=== PATIENT | female | born 1980 ===

== ENCOUNTER 2021-07-28 06:48 | Emergency (ER) | payer MEDICARE, MEDICAID, SELFPAY ==
--- NOTE | ~2021-07-28 | US_ITS ---
EXAMINATION: US PELVIS CLINICAL INFORMATION: Lower abdominal pain. Evaluate for ovarian cyst or tubo-ovarian abscess COMPARISON: Previous CT of the abdomen and pelvis July 2017 TECHNIQUE: Ultrasound of the pelvis is performed using both transabdominal and transvaginal transducers along with Doppler. Transvaginal imaging is performed due to inadequate visualization transabdominally. FINDINGS: The uterus is anteverted and measures 8.7 x 5.2 x 5.5 cm in dimension. There is a 2.2 x 2 x 3.6 cm hypoechoic lesion in the posterior uterine body suggestive of a fibroid. No other focal uterine lesion is seen. Endometrial thickness is normal measuring 1.1 cm. The right ovary is enlarged and measures 5 x 2.7 x 2.7 cm in dimension. There is a 1.2 x 2.1 x 1.7 cm complex right ovarian cyst with slightly thickened wall and internal echoes. The left ovary is seen transabdominally and is normal-appearing and measures 2.8 x 1.7 x 1.9 cm. Doppler and flow is documented to the right ovary. There is no evidence of right ovarian torsion. There is no fluid in the pelvis. US/US pelvic and transvaginal IMPRESSION: Small uterine fibroid. Slightly enlarged right ovary and 1.9 x 2.1 x 1.7 cm complex right ovarian cyst. Differential would include a resolving physiologic or hemorrhagic cyst and small tubo-ovarian abscess. No evidence of right ovarian torsion. No free fluid in the pelvis. Left ovary is seen transabdominally only but is normal-appearing.
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
[2021-07-28 07:23] VITALS: BP 177/106; PULSE 72; RESP 16; TEMP 36.9; O2SAT 98; BMI 30.1
[2021-07-28 08:01] LABS: Appearance Urine HAZY; Color Urine YELLOW; Glucose Urine UA NEG (NEG); Leukocyte Esterase Urine 2+ (NEG); Nitrite Urine NEG (NEG); Specific Gravity - Urine >= 1.030 (1.005-1.025); UACC Culture Trigger YES; Urine Blood 3+ (NEG); Urine Ketones NEG (NEG); Urine Protein TRACE MG/DL (NEG-TRACE)
[2021-07-28 08:04] LABS: UPreg QC Valid YES; Urine Pregnancy NEGATIVE (NEGATIVE)
[2021-07-28] MEDS: metroNIDAZOLE 500 MG TABLET 2000 MG PO (08:10)
[2021-07-28] MEDS: Azithromycin 500 MG TABLET 1000 MG PO (08:11)
[2021-07-28] MEDS: cefTRIAXone sodium 500 MG, Lidocaine HCl 1 % MPF 1 ML IM (08:11)
[2021-07-28 08:14] LABS: Bacteria Urine TRACE /LPF; Mucus Urine TRACE /LPF; Squamous Epithelial Cell Urine 1+ /LPF
[2021-07-28] MEDS: Ondansetron ODT 4 MG TAB.RAPDIS TRANSLINGU (09:21)
[2021-07-28 13:07] LABS: CT PCR NOT DETECTED (Not Detect.); NG PCR NOT DETECTED (Not Detect.)
== END 2021-07-28 10:12 | disposition home or self-care (01) ==
PROVIDERS: Emergency Provider Emergency Medicine; PCP Internal Medicine
DX: N76.0 Acute vaginitis (principal); N83.201 Unspecified ovarian cyst, right side; Z87.891 Personal history of nicotine dependence; Z79.899 Other long term (current) drug therapy; R79.89 Other specified abnormal findings of blood chemistry
CPT/HCPCS: 76830; 76856; 81001; 81003; 81025; 87086; 87480; 87491; 87510; 87591; 87660; 96372; 99283; 99284; J0696

== ENCOUNTER 2021-09-20 17:10 | Emergency (ER) | payer MEDICARE, MEDICAID, SELFPAY ==
--- NOTE | ~2021-09-20 | XR_ITS ---
EXAMINATION: XR KNEE, RIGHT CLINICAL INFORMATION: Pain COMPARISON: None TECHNIQUE: AP and crosstable lateral views of the right knee are obtained portably. FINDINGS: There is a moderate to large suprapatellar effusion. No fat fluid level. There is no visible fracture or dislocation or destructive process. Tricompartment osteoarthritis is present with associated marginal osteophytes from the femoral condyles and tibial plateau and patella. There are no erosive changes or visible chondrocalcinosis. XR/XR knee RT 2V IMPRESSION: 1. Moderate to large suprapatellar effusion. 2. Tricompartment osteoarthritis. No erosive change. 3. No fracture or dislocation.
[2021-09-20 17:37] VITALS: RESP 18; BMI 34.8
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
[2021-09-20] MEDS: Haloperidol Lactate 5 MG/ML VIAL 10 MG IM (17:50)
[2021-09-20] MEDS: LORazepam 2 MG/ML VIAL IM (17:50)
[2021-09-20 19:53] LABS: COVID-19 Test Negative (Negative)
[2021-09-21 05:18] VITALS: RESP 16
--- NOTE | 2021-09-21 06:24 | PC.NURSE ---
Patient slept whole evening and night, patient s/p medication restraint receive Haldol 10 mg IM and Ativan 2 mg IM with + effect was restarint immediately after arrival in the POD, briefly up tearful and argumentative, tangential, agreed reluctantly for covid swab, refused to do price changer and fell sleep, N referral completed and confirmed patient will be evaluated in the morning, except for covid all labs are pending, will continue to monitor.
[2021-09-21 07:13] VITALS: BP 142/86; PULSE 58; RESP 16; O2SAT 99
[2021-09-21 11:06] LABS: Alanine Aminotransferase 20 U/L (0-31); Albumin Level 3.9 g/dL (3.5-5.0); Alkaline Phosphatase 49 U/L (39-117); Anion Gap 15 (12-20); Aspartate Amino Transferase 27 U/L (5-31); Bilirubin Total 0.9 mg/dL (0.0-1.0); Blood Urea Nitrogen 8 mg/dL (9-16); Calcium 8.7 mg/dL (8.4-10.2); Carbon Dioxide 20 mmol/L (22-29); Chloride 107 mmol/L (96-108); Creatinine Clr Calc Pharmacy 109.6; Estimated Glomerular Filt Rate > 60; Glucose Random 92 mg/dL (60-115); Lipase 10 U/L (8-78); Potassium 3.9 mmol/L (3.3-5.1); Salicylate < 5.0 mg/dL (15-30); Sodium 138 mmol/L (135-145); Total Protein 6.7 g/dL (6.5-8.0)
[2021-09-21 11:11] LABS: HCG Quantitative < 2 mIU/mL
[2021-09-21 11:17] LABS: Acetaminophen LAB < 1 mcg/mL (<30)
[2021-09-21 11:54] LABS: Basophils Absolute Auto 0.1 X10*3/uL (0.0-0.2); Eosinophils Absolute Auto 0.2 X10*3/uL (0.0-0.4); Eosinophils Percent Auto 2.1 % (0-4); Hematocrit 36.8 % (37.0-47.0); Hemoglobin 12.6 g/dl (12.0-16.0); Imm Gran Abs Auto 0.02 X10*3/uL (0.00-0.03); Imm Gran Pct Auto 0.3 % (0.0-0.4); Lymphocytes Absolute Auto 1.5 X10*3/uL (1.2-4.9); Lymphocytes Percent Auto 20.7 % (20-40); MANUAL DIFF FLAG NO; Mean Corpuscular HGB Conc 34.2 g/dl (31.0-35.0); Mean Corpuscular Hemoglobin 31.4 pg (27.0-33.0); Mean Corpuscular Volume 91.8 fL (80.0-98.0); Mean Platelet Volume 10.9 fL (9.4-12.3); Monocytes Absolute Auto 0.5 X10*3/uL (0.1-1.2); Monocytes Percent Auto 6.4 % (2-11); Neutrophils Percent Auto 69.5 % (45-73); Platelet Count 260 X10*3/uL (160-400); Red Blood Count 4.01 X10*6/uL (4.20-5.50); Red Cell Distribution Width 13.1 % (11.0-16.0); White Blood Count 7.1 X10*3/uL (4.8-10.8)
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
[2021-09-21 12:05] LABS: Lactic Acid 0.8 mmol/L (0.5-2.0)
[2021-09-21 12:07] LABS: Ethanol < 10 mg/dL
--- NOTE | 2021-09-21 13:36 | PC.NURSE ---
Nicolasa's Mom came to bedside to briefly visit patient. procedure writer (Kim) alerted this RN that Nicolasa's daughter is currently getting an ultrasound and wanted to see Nicolasa. Nicolasa okay with this, as long as there is 1 visitor at a time. Nicolasa's Mom (Arik Schultz) took Nicolasa's car keys and house keys with her. Updated/signed patient belongings checklist form.
--- NOTE | 2021-09-21 18:06 | PC.NURSE ---
Pt seen by care team who feels that she is ready to be discharged. MD aware and discharge order has been placed.
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
== END 2021-09-21 18:23 | disposition home or self-care (01) ==
PROVIDERS: Emergency Medicine; Emergency Provider Emergency Medicine Emergency Medical Services
DX: F23 Brief psychotic disorder (principal); F22 Delusional disorders; F91.1 Conduct disorder, childhood-onset type; F31.9 Bipolar disorder, unspecified; Z20.822 Contact with and (suspected) exposure to COVID-19
CPT/HCPCS: 36415; 73560; 80053; 80143; 80179; 82077; 82550; 83605; 83690; 84702; 85025; 87635; 96372; 99284; 99285; J2060

== ENCOUNTER 2022-02-17 01:02 | Emergency (ER) | payer MEDICARE, MEDICAID, SELFPAY ==
[2022-02-17 01:05] VITALS: BP 168/98; PULSE 83; RESP 18; TEMP 36.9; O2SAT 99; BMI 24.7
[2022-02-17 01:11] VITALS: BP 168/98; PULSE 88; O2SAT 98
== END 2022-02-17 02:14 | disposition left against medical advice (07) ==
PROVIDERS: Emergency Provider Emergency Medicine; PCP Internal Medicine
DX: R25.2 Cramp and spasm (principal)
CPT/HCPCS: 99282

== ENCOUNTER 2022-03-15 03:53 | Emergency (ER) | payer MEDICARE, MEDICAID, SELFPAY ==
[2022-03-15 04:15] VITALS: BP 150/85; PULSE 94; PULSE 98; RESP 15; TEMP 36.7; O2SAT 99; BMI 24.1
--- NOTE | 2022-03-15 04:20 | PC.NURSE ---
Patient came running out of Room 7 and stated that she was leaving because she couldn't stay here because her dog was going to get hurt. Patient refused to stay despite staff attempting to get her not to leave. Patient is not in crisis, no SI/OK, and wanted to leave. MD aware that patient eloped.
== END 2022-03-15 04:38 | disposition left against medical advice (07) ==
PROVIDERS: Emergency Provider Emergency Medicine
DX: Z04.89 Encounter for examination and observation for other specified reasons (principal)
CPT/HCPCS: 99281; 99284

== ENCOUNTER 2022-04-30 00:12 | Emergency (ER) | payer MEDICARE, MEDICAID, SELFPAY ==
--- NOTE | ~2022-04-30 | US_ITS ---
EXAMINATION: US VENOUS ULTRASOUND WITH DOPPLER LOWER EXTREMITY, BILATERAL CLINICAL INFORMATION: Lower extremity swelling. COMPARISON: None TECHNIQUE: Ultrasound of the deep veins is performed from the hip to the calf with compression sonography and color and pulse Doppler assessment. Spectral analysis with color-flow imaging is performed. FINDINGS: RIGHT: There is normal venous compression and respiratory variation and augmented flow. The visualized common femoral vein, superficial femoral vein, profunda femoral vein, popliteal vein, and the trifurcation region shows no evidence of deep venous thrombosis. The popliteal fossa fluid collection with mild heterogeneity and predominantly anechoic components measures 3.5 cm x 0.7 cm x 1.6 cm. LEFT: There is normal venous compression and respiratory variation and augmented flow. The visualized common femoral vein, superficial femoral vein, profunda femoral vein, popliteal vein, and the trifurcation region shows no evidence of deep venous thrombosis. A left popliteal fossa prominently anechoic fluid collection measuring 2.9 cm x 1.0 cm x 2.7 cm is present. Incidental note is made of scattered benign-appearing inguinal lymph nodes bilaterally. If the patient's symptoms persist, followup ultrasound in 5 days 7 days might be of value to exclude proximal propagation from a non-visualized calf vein. US/US venous duplex LE BI IMPRESSION: *No deep venous thromboses demonstrated in the left and right lower extremities. *Bilateral popliteal fossa Reece's cyst. The right popliteal fossa Reece's cyst demonstrates mildly complex fluid which may represent a component of debris and/or blood products.
[2022-04-30 00:21] VITALS: PULSE 73; RESP 18; TEMP 36.8; O2SAT 99; BMI 25.0
--- NOTE | 2022-04-30 00:27 | PC.NURSE ---
Pt was moving arm too much in triage, could not obtain BP.
--- NOTE | 2022-04-30 00:29 | ED.GENADULT ---
HPI - General Adult General Chief complaint: General Medical <DUSTIN Baker Last Filed: 04/30/22 01:47> Stated complaint: Bilateral leg pain <DUSTIN Baker Last Filed: 04/30/22 01:47> Time Seen by Provider: 04/30/22 00:28 <DUSTIN Baker Last Filed: 04/30/22 01:47> Source: patient <DUSTIN Baker Last Filed: 04/30/22 01:47> Mode of arrival: ambulatory <DUSTIN Baker Last Filed: 04/30/22 01:47> Limitations: no limitations <DUSTIN Baker Last Filed: 04/30/22 01:47> History of Present Illness HPI narrative: 41-year-old female history of bipolar 1, anxiety, lupus, fibromyalgia, migraines and frequent UTIs presents to the emergency department with complaints of bilateral lower extremity edema, pain and inability to bear weight on bilateral lower extremities. Patient tells me that she usually gets fluid drained from bilateral knees by her lead pressman, last time she got a drain was about 2 months ago. She tells me that she also notices that her lower right leg is more swollen than her left. This has been going on for about 5 days, she tells me she came in today because the pain was intolerable. Denies shortness of breath, fevers, chills, nausea, vomiting, abdominal pain <DUSTIN Baker Last Filed: 04/30/22 01:47> Onset (ago): day(s) (5) <DUSTIN Baker Last Filed: 04/30/22 01:47> Location: left, right and lower extremity <DUSTIN Baker Last Filed: 04/30/22 01:47> Radiation: non-radiation <DUSTIN Baker Last Filed: 04/30/22 01:47> Severity: severe <DUSTIN Baker Last Filed: 04/30/22 01:47> Severity scale (1-10): >10 <DUSTIN Baker Last Filed: 04/30/22 01:47> Quality: constant <DUSTIN Baker Last Filed: 04/30/22 01:47> Pain Consistency: constant <DUSTIN Baker Last Filed: 04/30/22 01:47> Relieving factors: none <DUSTIN Baker Last Filed: 04/30/22 01:47> Exacerbating factors: none <DUSTIN Baker Last Filed: 04/30/22 01:47> Associated symptoms: denies other symptoms <DUSTIN Baker Last Filed: 04/30/22 01:47> Treatments prior to arrival: none <DUSTIN Baker Last Filed: 04/30/22 01:47> Related Data Home medications: Home Medications Medication Instructions Recorded Confirmed cholecalciferol (vitamin D3) 50 1 cap PO DAILY 09/21/21 09/21/21 mcg (2,000 unit) capsule clonazepam 2 mg tablet 1 tab PO TID PRN Agitation 09/21/21 09/21/21 fluoxetine 20 mg capsule 1 cap PO DAILY 09/21/21 09/21/21 Previous Rx's Medication Instructions Recorded cephalexin 500 mg tablet 500 mg PO Q6H 10 days #40 tabs 04/30/22 doxycycline hyclate 100 mg capsule 100 mg PO BID 10 days #20 caps 04/30/22 <DUSTIN Baker Last Filed: 04/30/22 01:47> Allergies/adverse reactions: Allergies Allergy/AdvReac Type Severity Reaction Status Date / Time acetaminophen [From VICODIN] Allergy Unknown HIVES Verified 03/15/22 03:58 hydrocodone [From VICODIN] Allergy Unknown HIVES Verified 03/15/22 03:58 midazolam [From VERSED] Allergy Unknown AGGRESSION Verified 03/15/22 03:58 rofecoxib [From VIOXX] Allergy Unknown HIVES Verified 03/15/22 03:58 sulfamethoxazole Allergy Unknown UNKNOWN Verified 03/15/22 03:58 [From BACTRIM] trimethoprim [From BACTRIM] Allergy Unknown UNKNOWN Verified 03/15/22 03:58 ibuprofen Allergy Vomiting Verified 04/30/22 00:20 bactrim Allergy Unknown Rash Uncoded 09/21/21 00:25 doxycycline Allergy Unknown Rash Uncoded 09/21/21 00:25 vicodin Allergy Unknown Anxiety Uncoded 09/21/21 00:25 viox Allergy Unknown Rash Uncoded 09/21/21 00:25 <DUSTIN Baker - Last Filed: 04/30/22 01:47> Review of Systems Review of Systems: Constitutional : No Weight loss, No Fever, No Chills, No Fatigue, No Malaise ENT/Mouth : No sore throat, No Rhinorrhea Eyes: No Eye Pain, No Swelling, No Redness Cardiovascular : No Chest Pain, No SOB, No Dyspnea on Exertion, No Orthopnea, No Edema, No Palpitations Respiratory : No Cough, No Sputum, No Wheezing Gastrointestinal : No Nausea, No Vomiting, No Diarrhea, No Constipation, No abdominal Pain, No Hematochezia, No Melena Genitourinary : No Dysuria, No Urinary Frequency, No Hematuria, Musculoskeletal : + joint pain, No Myalgias, + Joint Swelling Skin : No Skin Lesions, No rash Neuro : No Weakness, No Numbness, No Dizziness, No Headache All other systems reviewed and are negative <DUSTIN Baker - Last Filed: 04/30/22 01:47> Yes all other systems are reviewed and are negative <DUSTIN Baker Last Filed: 04/30/22 01:47> [facility] Past Medical History Attestation statement: The following information was validated with the patient. <DUSTIN Baker Last Filed: 04/30/22 01:47> Source: old records reviewed and nursing notes reviewed <DUSTIN Baker - Last Filed: 04/30/22 01:47> Medical History: Medical History Anxiety Bipolar 1 disorder Lupus Migraines UTI (urinary tract infection) <DUSTIN Baker Last Filed: 04/30/22 01:47> Surgical History: Surgical History History of pubovaginal sling <DUSTIN Baker Last Filed: 04/30/22 01:47> Social History Social History: Social History Alcohol intake: unknown Patient Tobacco Use Status: Former Tobacco user Advance Directives: No <DUSTIN Baker - Last Filed: 04/30/22 01:47> Physical Exam ED Vital Signs: Vital Signs - 24 hr 04/30/22 00:21 04/30/22 02:51 Temperature 98.3 F Pulse Rate 73 71 Respiratory Rate 18 Blood Pressure 117/57 L Pulse Oximetry 99 95 Oxygen Delivery Method Room Air Room Air BMI result Body Mass Index 25.0 Vital signs stable <DUSTIN Baker - Last Filed: 04/30/22 01:47> Vital Signs - 24 hr 04/30/22 00:21 04/30/22 02:51 Temperature 98.3 F Pulse Rate 73 71 Respiratory Rate 18 Blood Pressure 117/57 L Pulse Oximetry 99 95 Oxygen Delivery Method Room Air Room Air BMI result Body Mass Index 25.0 <Abby Payan MD - Last Filed: 04/30/22 03:27> Appearance: Alert.? Oriented X3.? No acute distress.? Head: Normocephalic, atraumatic, no step-offs or deformities Eyes: Pupils equal, round and reactive to light.? ENT: Pharynx normal.? Neck: Normal inspection.? Neck supple.? CVS: Normal heart rate and rhythm.? Pulses normal.? Respiratory: No respiratory distress.? Breath sounds normal.? Abdomen: Soft and nontender.? Skin: Skin warm and dry.? Normal skin color.? Normal skin turgor.? Extremities: No lower extremity edema.? No calf ttp. 5/5 strength to bilateral upper and lower extremities. swelling to b/l knees and RLE swelling and cellulitis. RLE warm and edematous. LLE with a swollen left knee. RRR. Lungs clear. Abdomen soft nontender nondistended. Neuro exam nonfocal. Back: No midline tenderness, no C-spine tenderness, full range of motion, no CVA tenderness bilaterally Neuro: Oriented X 3.? No motor deficit.? No sensory deficit. CN 2-12 intact <DUSTIN Baker - Last Filed: 04/30/22 01:47> Course Reevaluation(s) Reevaluation #1: CBC appears to be around patient's baseline, chemistry with no acute electrolyte abnormalities requiring intervention. Trop pending EKG pending. An arthrocentesis was done at the bedside with , 35 cc were drained from the left knee joint yellow, normal parents, the right knee joint we drained about 15 cc. This was done in a sterile fashion. 80 mg of DEPO-Medrol were placed to each knee. Patient tolerated procedure well. Abel wrap applied to b/l knees. Pending trop, ekg, venous duplex. <DUSTIN Baker - Last Filed: 04/30/22 01:47> Time: 01:37 <DUSTIN Baker - Last Filed: 04/30/22 01:47> Reevaluation #2: Sign out given to . <DUSTIN Baker - Last Filed: 04/30/22 01:47> Time: 01:45 <DUSTIN Baker - Last Filed: 04/30/22 01:47> Reevaluation #3: Patient has bilateral Reece cysts. <Abby Payan MD - Last Filed: 04/30/22 03:27> Medical Decision Making MDM Narrative Medical decision making narrative: 0031 41 yo f presents w/ b/l lower extremity pain and swelling X 5day . Vague complaints of chest discomfort PE- w/ significant swelling to b/l knees and RLE swelling and cellulitis. RLE warm and edematous. LLE with a swollen left knee. RRR. Lungs clear. Abdomen soft nontender nondistended. Neuro exam nonfocal. History and physical examination concerning for right lower extremity cellulitis, rule will rule out DVT. Plan-labs, urine, bnp , troponin, EKG. Discuss this case with my attending , arthrocentesis <DUSTIN Baker - Last Filed: 04/30/22 01:47> Medical Records Medical records reviewed: Yes I reviewed the patient's medical records. <DUSTIN Baker - Last Filed: 04/30/22 01:47> Lab Data Lab results reviewed: Yes I reviewed the patient's lab results. <DUSTIN Baker - Last Filed: 04/30/22 01:47> Result diagrams: : 04/30/22 01:02 04/30/22 01:02 <DUSTIN Baker - Last Filed: 04/30/22 01:47> Labs: Lab Results 04/30/22 04/30/22 04/30/22 Range/Units 01:02 01:02 01:02 WBC 8.6 (4.8-10.8) X10*3/uL RBC 3.46 L (4.20-5.50) X10*6/uL Hgb 10.4 L (12.0-16.0) g/dl Hct 31.6 L (37.0-47.0) % MCV 91.3 (80.0-98.0) fL MCH 30.1 (27.0-33.0) pg MCHC 32.9 (31.0-35.0) g/dl RDW 13.5 (11.0-16.0) % Plt Count 325 (160-400) X10*3/uL MPV 10.3 (9.4-12.3) fL Immature Gran % (Auto) 0.1 (0.0-0.4) % Neut % (Auto) 66.6 (45-73) % Lymph % (Auto) 24.7 (20-40) % [place] % (Auto) 7.1 (2-11) % Eos % (Auto) 1.0 (0-4) % Baso % (Auto) 0.5 (0-2) % Lymph # (Auto) 2.1 (1.2-4.9) X10*3/uL [place] # (Auto) 0.6 (0.1-1.2) X10*3/uL Eos # (Auto) 0.1 (0.0-0.4) X10*3/uL Baso # (Auto) 0.0 (0.0-0.2) X10*3/uL Abs Immat Gran (auto) 0.01 (0.00-0.03) X10*3/uL Absolute Neuts (auto) 5.7 (2.0-8.3) x10*3/uL Absolute Nucleated RBC 0.000 (0.0-0.012) X10*3/uL Nucleated RBC % (auto) 0.0 (0.0-0.2) /100WBC D-Dimer High Sensitivty Sodium 142 (135-145) mmol/L Potassium 3.5 (3.3-5.1) mmol/L Chloride 105 (96-108) mmol/L Carbon Dioxide 31 H (22-29) mmol/L Anion Gap 10 L (12-20) BUN 13 (9-16) mg/dL Creatinine 0.83 (0.5-1.4) mg/dL Estim Creat Clear Calc 83.4 Estimated GFR > 60 Random Glucose 93 (60-115) mg/dL Lactic Acid (0.5-2.0) mmol/L Calcium 8.5 (8.4-10.2) mg/dL Magnesium 2.2 (1.6-2.6) mg/dL Total Bilirubin 0.3 (0.0-1.0) mg/dL AST 17 (5-31) U/L ALT 8 (0-31) U/L Alkaline Phosphatase 65 D (39-117) U/L Troponin I High Sens (<3.5-17.0) ng/L B-Natriuretic Peptide 12 (<100) pg/mL Total Protein 6.2 L (6.5-8.0) g/dL Albumin 3.7 (3.5-5.0) g/dL COVID-19 (BRAD) (Negative) COVID-19 Clin Com 04/30/22 04/30/22 04/30/22 Range/Units 01:02 01:02 01:32 WBC (4.8-10.8) X10*3/uL RBC (4.20-5.50) X10*6/uL Hgb (12.0-16.0) g/dl Hct (37.0-47.0) % MCV (80.0-98.0) fL MCH (27.0-33.0) pg MCHC (31.0-35.0) g/dl RDW (11.0-16.0) % Plt Count (160-400) X10*3/uL MPV (9.4-12.3) fL Immature Gran % (Auto) (0.0-0.4) % Neut % (Auto) (45-73) % Lymph % (Auto) (20-40) % [place] % (Auto) (2-11) % Eos % (Auto) (0-4) % Baso % (Auto) (0-2) % Lymph # (Auto) (1.2-4.9) X10*3/uL [place] # (Auto) (0.1-1.2) X10*3/uL Eos # (Auto) (0.0-0.4) X10*3/uL Baso # (Auto) (0.0-0.2) X10*3/uL Abs Immat Gran (auto) (0.00-0.03) X10*3/uL Absolute Neuts (auto) (2.0-8.3) x10*3/uL Absolute Nucleated RBC (0.0-0.012) X10*3/uL Nucleated RBC % (auto) (0.0-0.2) /100WBC D-Dimer High Sensitivty Cancelled Sodium (135-145) mmol/L Potassium (3.3-5.1) mmol/L Chloride (96-108) mmol/L Carbon Dioxide (22-29) mmol/L Anion Gap (12-20) BUN (9-16) mg/dL Creatinine (0.5-1.4) mg/dL Estim Creat Clear Calc Estimated GFR Random Glucose (60-115) mg/dL Lactic Acid (0.5-2.0) mmol/L Calcium (8.4-10.2) mg/dL Magnesium (1.6-2.6) mg/dL Total Bilirubin (0.0-1.0) mg/dL AST (5-31) U/L ALT (0-31) U/L Alkaline Phosphatase (39-117) U/L Troponin I High Sens < 3.5 (<3.5-17.0) ng/L B-Natriuretic Peptide (<100) pg/mL Total Protein (6.5-8.0) g/dL Albumin (3.5-5.0) g/dL COVID-19 (BRAD) Negative (Negative) COVID-19 Clin Com See Note 04/30/22 Range/Units 01:32 WBC (4.8-10.8) X10*3/uL RBC (4.20-5.50) X10*6/uL Hgb (12.0-16.0) g/dl Hct (37.0-47.0) % MCV (80.0-98.0) fL MCH (27.0-33.0) pg MCHC (31.0-35.0) g/dl RDW (11.0-16.0) % Plt Count (160-400) X10*3/uL MPV (9.4-12.3) fL Immature Gran % (Auto) (0.0-0.4) % Neut % (Auto) (45-73) % Lymph % (Auto) (20-40) % [place] % (Auto) (2-11) % Eos % (Auto) (0-4) % Baso % (Auto) (0-2) % Lymph # (Auto) (1.2-4.9) X10*3/uL [place] # (Auto) (0.1-1.2) X10*3/uL Eos # (Auto) (0.0-0.4) X10*3/uL Baso # (Auto) (0.0-0.2) X10*3/uL Abs Immat Gran (auto) (0.00-0.03) X10*3/uL Absolute Neuts (auto) (2.0-8.3) x10*3/uL Absolute Nucleated RBC (0.0-0.012) X10*3/uL Nucleated RBC % (auto) (0.0-0.2) /100WBC D-Dimer High Sensitivty Sodium (135-145) mmol/L Potassium (3.3-5.1) mmol/L Chloride (96-108) mmol/L Carbon Dioxide (22-29) mmol/L Anion Gap (12-20) BUN (9-16) mg/dL Creatinine (0.5-1.4) mg/dL Estim Creat Clear Calc Estimated GFR Random Glucose (60-115) mg/dL Lactic Acid 0.9 (0.5-2.0) mmol/L Calcium (8.4-10.2) mg/dL Magnesium (1.6-2.6) mg/dL Total Bilirubin (0.0-1.0) mg/dL AST (5-31) U/L ALT (0-31) U/L Alkaline Phosphatase (39-117) U/L Troponin I High Sens (<3.5-17.0) ng/L B-Natriuretic Peptide (<100) pg/mL Total Protein (6.5-8.0) g/dL Albumin (3.5-5.0) g/dL COVID-19 (BRAD) (Negative) COVID-19 Clin Com <DUSTIN Baker - Last Filed: 04/30/22 01:47> Lab Results 04/30/22 04/30/22 04/30/22 Range/Units 01:02 01:02 01:02 WBC 8.6 (4.8-10.8) X10*3/uL RBC 3.46 L (4.20-5.50) X10*6/uL Hgb 10.4 L (12.0-16.0) g/dl Hct 31.6 L (37.0-47.0) % MCV 91.3 (80.0-98.0) fL MCH 30.1 (27.0-33.0) pg MCHC 32.9 (31.0-35.0) g/dl RDW 13.5 (11.0-16.0) % Plt Count 325 (160-400) X10*3/uL MPV 10.3 (9.4-12.3) fL Immature Gran % (Auto) 0.1 (0.0-0.4) % Neut % (Auto) 66.6 (45-73) % Lymph % (Auto) 24.7 (20-40) % [place] % (Auto) 7.1 (2-11) % Eos % (Auto) 1.0 (0-4) % Baso % (Auto) 0.5 (0-2) % Lymph # (Auto) 2.1 (1.2-4.9) X10*3/uL [place] # (Auto) 0.6 (0.1-1.2) X10*3/uL Eos # (Auto) 0.1 (0.0-0.4) X10*3/uL Baso # (Auto) 0.0 (0.0-0.2) X10*3/uL Abs Immat Gran (auto) 0.01 (0.00-0.03) X10*3/uL Absolute Neuts (auto) 5.7 (2.0-8.3) x10*3/uL Absolute Nucleated RBC 0.000 (0.0-0.012) X10*3/uL Nucleated RBC % (auto) 0.0 (0.0-0.2) /100WBC D-Dimer High Sensitivty Sodium 142 (135-145) mmol/L Potassium 3.5 (3.3-5.1) mmol/L Chloride 105 (96-108) mmol/L Carbon Dioxide 31 H (22-29) mmol/L Anion Gap 10 L (12-20) BUN 13 (9-16) mg/dL Creatinine 0.83 (0.5-1.4) mg/dL Estim Creat Clear Calc 83.4 Estimated GFR > 60 Random Glucose 93 (60-115) mg/dL Lactic Acid (0.5-2.0) mmol/L Calcium 8.5 (8.4-10.2) mg/dL Magnesium 2.2 (1.6-2.6) mg/dL Total Bilirubin 0.3 (0.0-1.0) mg/dL AST 17 (5-31) U/L ALT 8 (0-31) U/L Alkaline Phosphatase 65 D (39-117) U/L Troponin I High Sens (<3.5-17.0) ng/L B-Natriuretic Peptide 12 (<100) pg/mL Total Protein 6.2 L (6.5-8.0) g/dL Albumin 3.7 (3.5-5.0) g/dL COVID-19 (BRAD) (Negative) COVID-19 Clin Com 04/30/22 04/30/22 04/30/22 Range/Units 01:02 01:02 01:32 WBC (4.8-10.8) X10*3/uL RBC (4.20-5.50) X10*6/uL Hgb (12.0-16.0) g/dl Hct (37.0-47.0) % MCV (80.0-98.0) fL MCH (27.0-33.0) pg MCHC (31.0-35.0) g/dl RDW (11.0-16.0) % Plt Count (160-400) X10*3/uL MPV (9.4-12.3) fL Immature Gran % (Auto) (0.0-0.4) % Neut % (Auto) (45-73) % Lymph % (Auto) (20-40) % [place] % (Auto) (2-11) % Eos % (Auto) (0-4) % Baso % (Auto) (0-2) % Lymph # (Auto) (1.2-4.9) X10*3/uL [place] # (Auto) (0.1-1.2) X10*3/uL Eos # (Auto) (0.0-0.4) X10*3/uL Baso # (Auto) (0.0-0.2) X10*3/uL Abs Immat Gran (auto) (0.00-0.03) X10*3/uL Absolute Neuts (auto) (2.0-8.3) x10*3/uL Absolute Nucleated RBC (0.0-0.012) X10*3/uL Nucleated RBC % (auto) (0.0-0.2) /100WBC D-Dimer High Sensitivty Cancelled Sodium (135-145) mmol/L Potassium (3.3-5.1) mmol/L Chloride (96-108) mmol/L Carbon Dioxide (22-29) mmol/L Anion Gap (12-20) BUN (9-16) mg/dL Creatinine (0.5-1.4) mg/dL Estim Creat Clear Calc Estimated GFR Random Glucose (60-115) mg/dL Lactic Acid (0.5-2.0) mmol/L Calcium (8.4-10.2) mg/dL Magnesium (1.6-2.6) mg/dL Total Bilirubin (0.0-1.0) mg/dL AST (5-31) U/L ALT (0-31) U/L Alkaline Phosphatase (39-117) U/L Troponin I High Sens < 3.5 (<3.5-17.0) ng/L B-Natriuretic Peptide (<100) pg/mL Total Protein (6.5-8.0) g/dL Albumin (3.5-5.0) g/dL COVID-19 (BRAD) Negative (Negative) COVID-19 Clin Com See Note 04/30/22 Range/Units 01:32 WBC (4.8-10.8) X10*3/uL RBC (4.20-5.50) X10*6/uL Hgb (12.0-16.0) g/dl Hct (37.0-47.0) % MCV (80.0-98.0) fL MCH (27.0-33.0) pg MCHC (31.0-35.0) g/dl RDW (11.0-16.0) % Plt Count (160-400) X10*3/uL MPV (9.4-12.3) fL Immature Gran % (Auto) (0.0-0.4) % Neut % (Auto) (45-73) % Lymph % (Auto) (20-40) % [place] % (Auto) (2-11) % Eos % (Auto) (0-4) % Baso % (Auto) (0-2) % Lymph # (Auto) (1.2-4.9) X10*3/uL [place] # (Auto) (0.1-1.2) X10*3/uL Eos # (Auto) (0.0-0.4) X10*3/uL Baso # (Auto) (0.0-0.2) X10*3/uL Abs Immat Gran (auto) (0.00-0.03) X10*3/uL Absolute Neuts (auto) (2.0-8.3) x10*3/uL Absolute Nucleated RBC (0.0-0.012) X10*3/uL Nucleated RBC % (auto) (0.0-0.2) /100WBC D-Dimer High Sensitivty Sodium (135-145) mmol/L Potassium (3.3-5.1) mmol/L Chloride (96-108) mmol/L Carbon Dioxide (22-29) mmol/L Anion Gap (12-20) BUN (9-16) mg/dL Creatinine (0.5-1.4) mg/dL Estim Creat Clear Calc Estimated GFR Random Glucose (60-115) mg/dL Lactic Acid 0.9 (0.5-2.0) mmol/L Calcium (8.4-10.2) mg/dL Magnesium (1.6-2.6) mg/dL Total Bilirubin (0.0-1.0) mg/dL AST (5-31) U/L ALT (0-31) U/L Alkaline Phosphatase (39-117) U/L Troponin I High Sens (<3.5-17.0) ng/L B-Natriuretic Peptide (<100) pg/mL Total Protein (6.5-8.0) g/dL Albumin (3.5-5.0) g/dL COVID-19 (BRAD) (Negative) COVID-19 Clin Com <Abby Payan MD - Last Filed: 04/30/22 03:27> Imaging Data Venous US: Radiologist's impression: RIGHT: There is normal venous compression and respiratory variation and augmented flow. The visualized common femoral vein, superficial femoral vein, profunda femoral vein, popliteal vein, and the trifurcation region shows no evidence of deep venous thrombosis. The popliteal fossa fluid collection with mild heterogeneity and predominantly anechoic components measures 3.5 cm x 0.7 cm x 1.6 cm. LEFT: There is normal venous compression and respiratory variation and augmented flow. The visualized common femoral vein, superficial femoral vein, profunda femoral vein, popliteal vein, and the trifurcation region shows no evidence of deep venous thrombosis. A left popliteal fossa prominently anechoic fluid collection measuring 2.9 cm x 1.0 cm x 2.7 cm is present. Incidental note is made of scattered benign-appearing inguinal lymph nodes bilaterally. If the patient's symptoms persist, followup ultrasound in 5 days 7 days might be of value to exclude proximal propagation from a non-visualized calf vein. US/US venous duplex LE BI IMPRESSION: *No deep venous thromboses demonstrated in the left and right lower extremities. *Bilateral popliteal fossa Reece's cyst. The right popliteal fossa Reece's cyst demonstrates mildly complex fluid which may represent a component of debris and/or blood products. <Abby Payan MD - Last Filed: 04/30/22 03:27> Critical Care Time Critical Care Time Critical Care Time: No <DUSTIN Baker - Last Filed: 04/30/22 01:47> Discharge Plan Discharge Clinical Impression: Bilateral knee effusions, Edema of left lower extremity, Chest pain, Cellulitis <DUSTIN Baker - Last Filed: 04/30/22 01:47> Patient Disposition: Home, Self-Care <DUSTIN Baker - Last Filed: 04/30/22 01:47> Instructions: Cellulitis (ED), Leg Edema (ED), Swollen Knee Joint (ED), Chest Wall Pain (ED), Edema (ED), Joint Aspiration (DC) <DUSTIN Baker - Last Filed: 04/30/22 01:47> Additional Instructions: Take your medications as prescribed. If you were prescribed antibiotics today, it is important that you take your medication to their entirety, do not skip any doses, do not finish them early. Follow-up with your primary care provider this week. Return to the emergency department with new or worsening symptoms. Such as fevers, chills, chest pain, shortness of breath, nausea, vomiting, dizziness, headache, vision changes, lethargy In case of emergency call 911 Please follow-up with your lead pressman. 80 mg of DEPO-medrol placed to bilateral knees. Return with new or worsening symptoms. <DUSTIN Baker Last Filed: 04/30/22 01:47> Prescriptions: New cephalexin 500 mg tablet 500 mg PO Q6H 10 Days Qty: 40 0RF doxycycline hyclate 100 mg capsule 100 mg PO BID 10 Days Qty: 20 0RF No Action clonazepam 2 mg tablet 1 tab PO TID PRN (Reason: Agitation) fluoxetine 20 mg capsule 1 cap PO DAILY cholecalciferol (vitamin D3) 50 mcg (2,000 unit) capsule 1 cap PO DAILY <DUSTIN Baker Last Filed: 04/30/22 01:47> Referrals: Kari Lux MD [Primary Care Provider] - 2 days <DUSTIN Baker Last Filed: 04/30/22 01:47> Stand Alone Forms: Work/School Release <DUSTIN Baker Last Filed: 04/30/22 01:47>
[2022-04-30] MEDS: oxyCODONE HCl Immed Release 5 MG TABLET PO (01:01)
[2022-04-30 01:11] LABS: MANUAL DIFF FLAG NO
[2022-04-30 01:13] LABS: Basophils Percent Auto 0.5 % (0-2); Eosinophils Absolute Auto 0.1 X10*3/uL (0.0-0.4); Hematocrit 31.6 % (37.0-47.0); Hemoglobin 10.4 g/dl (12.0-16.0); Imm Gran Abs Auto 0.01 X10*3/uL (0.00-0.03); Imm Gran Pct Auto 0.1 % (0.0-0.4); Lymphocytes Absolute Auto 2.1 X10*3/uL (1.2-4.9); Lymphocytes Percent Auto 24.7 % (20-40); Mean Corpuscular HGB Conc 32.9 g/dl (31.0-35.0); Mean Corpuscular Hemoglobin 30.1 pg (27.0-33.0); Mean Corpuscular Volume 91.3 fL (80.0-98.0); Mean Platelet Volume 10.3 fL (9.4-12.3); Monocytes Absolute Auto 0.6 X10*3/uL (0.1-1.2); Monocytes Percent Auto 7.1 % (2-11); Neutrophils Absolute Auto 5.7 x10*3/uL (2.0-8.3); Neutrophils Percent Auto 66.6 % (45-73); Platelet Count 325 X10*3/uL (160-400); Red Blood Count 3.46 X10*6/uL (4.20-5.50); Red Cell Distribution Width 13.5 % (11.0-16.0); White Blood Count 8.6 X10*3/uL (4.8-10.8)
[2022-04-30 01:29] LABS: COVID-19 Test Negative (Negative)
[2022-04-30 01:32] LABS: B Type Natriuretic Peptide 12 pg/mL (<100)
[2022-04-30 01:34] LABS: Alanine Aminotransferase 8 U/L (0-31); Albumin Level 3.7 g/dL (3.5-5.0); Alkaline Phosphatase 65 U/L (39-117); Anion Gap 10 (12-20); Aspartate Amino Transferase 17 U/L (5-31); Bilirubin Total 0.3 mg/dL (0.0-1.0); Blood Urea Nitrogen 13 mg/dL (9-16); Calcium 8.5 mg/dL (8.4-10.2); Carbon Dioxide 31 mmol/L (22-29); Chloride 105 mmol/L (96-108); Creatinine Clr Calc Pharmacy 83.4; Estimated Glomerular Filt Rate > 60; Glucose Random 93 mg/dL (60-115); Magnesium 2.2 mg/dL (1.6-2.6); Potassium 3.5 mmol/L (3.3-5.1); Sodium 142 mmol/L (135-145); Total Protein 6.2 g/dL (6.5-8.0)
[2022-04-30] MEDS: Lidocaine HCl 2 % MPF 5 ML VIAL SUBCUT ×2 (01:34)
[2022-04-30] MEDS: methylPREDNISolone acetate 80 MG VIAL INTRAARTIC ×2 (01:34→01:35)
[2022-04-30 01:36] LABS: Troponin-I High Sensitivity < 3.5 ng/L (<3.5-17.0)
[2022-04-30 01:59] LABS: Lactic Acid 0.9 mmol/L (0.5-2.0)
--- NOTE | 2022-04-30 02:10 | PC.NURSE ---
Assumed care of pt Pt c/o bliateral leg pain. Per pt, pain on back of LT knee and RT knee Hx of RA and gets knee aspirated, last done last month. Denies any fevers/n/v at home AxO x 4, clear and complete sentences
--- NOTE | 2022-04-30 02:12 | PC.NURSE ---
Pt to US
[2022-04-30] MEDS: HYDROmorphone HCl 0.5 MG/0.5 ML SYRINGE IVPUSH (02:44)
[2022-04-30 02:51] VITALS: BP 117/57; PULSE 71; O2SAT 95
--- NOTE | 2022-04-30 02:51 | PC.NURSE ---
Pt back from US Pt's knees wrapped with yuniel and medicated per JAN Pt tolerated well Will continue to monitor
--- NOTE | 2022-04-30 04:31 | PC.NURSE ---
Pt offered wheelchair and blankets while patient waits in ED WR. Pt stating I don't need anything from you. I wouldn't have come here if I knew I was going home. Pt procedded to rip out own IV. Pt allowed this RN to occlude IV site with gauze and tape. Bleeding controlled Pt ambulatory upon discharge. Pt refusing wheelchair or to wear mask. Pt refusing blankets.
== END 2022-04-30 04:36 | disposition home or self-care (01) ==
PROVIDERS: Physician Assistant; Emergency Provider Emergency Medicine; PCP Internal Medicine
DX: R60.0 Localized edema (principal); M79.605 Pain in left leg; M79.604 Pain in right leg; M25.462 Effusion, left knee; M25.461 Effusion, right knee; R06.02 Shortness of breath; R07.89 Other chest pain; Z20.822 Contact with and (suspected) exposure to COVID-19; Z79.899 Other long term (current) drug therapy; Z87.891 Personal history of nicotine dependence
CPT/HCPCS: 36415; 80053; 83605; 83735; 83880; 84484; 85025; 87040; 87635; 93970; 96374; 99283; 99284; J1040; J1170

== ENCOUNTER 2023-04-16 14:55 | Emergency (ER) | payer MEDICARE, MEDICAID, SELFPAY ==
[2023-04-16 15:01] VITALS: BP 168/110; PULSE 88; RESP 19; TEMP 36.6; O2SAT 98; BMI 25.0
--- NOTE | 2023-04-16 15:01 | ED.GENADULT ---
HPI - General Adult General Chief complaint: Vaginal Bleeding Stated complaint: severe lower abd pain Related Data Home Medications Medication Instructions Recorded Confirmed cholecalciferol (vitamin D3) 50 1 cap PO DAILY 09/21/21 09/21/21 mcg (2,000 unit) capsule clonazepam 2 mg tablet 1 tab PO TID PRN Agitation 09/21/21 09/21/21 fluoxetine 20 mg capsule 1 cap PO DAILY 09/21/21 09/21/21 Previous Rx's Medication Instructions Recorded cephalexin 500 mg tablet 500 mg PO Q6H 10 days #40 tabs 04/30/22 doxycycline hyclate 100 mg capsule 100 mg PO BID 10 days #20 caps 04/30/22 Allergies Allergy/AdvReac Type Severity Reaction Status Date / Time acetaminophen [From VICODIN] Allergy Unknown HIVES Verified 04/16/23 15:00 hydrocodone [From VICODIN] Allergy Unknown HIVES Verified 04/16/23 15:00 midazolam [From VERSED] Allergy Unknown AGGRESSION Verified 04/16/23 15:00 rofecoxib [From VIOXX] Allergy Unknown HIVES Verified 04/16/23 15:00 sulfamethoxazole Allergy Unknown UNKNOWN Verified 04/16/23 15:00 [From BACTRIM] trimethoprim [From BACTRIM] Allergy Unknown UNKNOWN Verified 04/16/23 15:00 ibuprofen Allergy Vomiting Verified 04/16/23 15:00 bactrim Allergy Unknown Rash Uncoded 04/16/23 15:00 doxycycline Allergy Unknown Rash Uncoded 04/16/23 15:00 vicodin Allergy Unknown Anxiety Uncoded 04/16/23 15:00 viox Allergy Unknown Rash Uncoded 04/16/23 15:00 PMFSH Past Medical History Medical History Anxiety Bipolar 1 disorder Lupus Migraines UTI (urinary tract infection) Surgical History History of pubovaginal sling Social History Social History Alcohol intake: unknown Patient Tobacco Use Status: Former Tobacco user Advance Directives: No Advance Directives Information Provided: Yes Physical Exam ED Vital Signs: Vital Signs - 24 hr 04/16/23 15:01 Temperature 98 F Pulse Rate 88 Respiratory Rate 19 Blood Pressure 168/110 H Pulse Oximetry 98 Oxygen Delivery Method Room Air BMI result Body Mass Index 25.0 Course Course Course Narrative: RME- 42-year-old female presents for evaluation of severe lower abdominal pain and vaginal bleeding. Patient reports that she has had vaginal bleeding for the last month but worse today. She reports bleeding to 24 pads today. And she is not on any blood thinners. Reports history of tubal ligation. Plan for labs, ultrasound. Patient's vital signs are stable -I did not participate in patient's medical care. Patient left before coming into the main ED. Patient did not wait for her ultrasound which was ordered in triage. Radiology called, requesting to cancel the ultrasound order. As mentioned above, patient is not present Medical Decision Making Lab Data 04/16/23 15:15 04/16/23 15:15 Labs: Lab Results 04/16/23 04/16/23 04/16/23 Range/Units 15:15 15:15 15:15 WBC 6.6 (4.8-10.8) X10*3/uL RBC 4.26 D (4.20-5.50) X10*6/uL Hgb 13.0 D (12.0-16.0) g/dl Hct 39.4 D (37.0-47.0) % MCV 92.5 (80.0-98.0) fL MCH 30.5 (27.0-33.0) pg MCHC 33.0 (31.0-35.0) g/dl RDW 12.9 (11.0-16.0) % Plt Count 159 L D (160-400) X10*3/uL MPV 12.1 (9.4-12.3) fL Immature Gran % (Auto) 0.3 (0.0-0.4) % Neut % (Auto) 68.6 (45-73) % Lymph % (Auto) 23.4 (20-40) % [place] % (Auto) 5.7 (2-11) % Eos % (Auto) 1.1 (0-4) % Baso % (Auto) 0.9 (0-2) % Lymph # (Auto) 1.6 (1.2-4.9) X10*3/uL [place] # (Auto) 0.4 (0.1-1.2) X10*3/uL Eos # (Auto) 0.1 (0.0-0.4) X10*3/uL Baso # (Auto) 0.1 (0.0-0.2) X10*3/uL Abs Immat Gran (auto) 0.02 (0.00-0.03) X10*3/uL Absolute Neuts (auto) 4.5 (2.0-8.3) x10*3/uL Absolute Nucleated RBC 0.000 (0.0-0.012) X10*3/uL Nucleated RBC % (auto) 0.0 (0.0-0.2) /100WBC PT 11.0 (10.0-13.1) SEC INR 1.0 (0.9-1.1) APTT 34.7 (26.0-36.4) SEC Sodium 141 (135-145) mmol/L Potassium 3.3 (3.3-5.1) mmol/L Chloride 106 (96-108) mmol/L Carbon Dioxide 29 (22-29) mmol/L Anion Gap 9 L (12-20) BUN 12 (9-16) mg/dL Creatinine 0.87 (0.5-1.4) mg/dL Estim Creat Clear Calc 75.7 Estimated GFR > 60 Random Glucose 93 (60-115) mg/dL Calcium 9.3 D (8.4-10.2) mg/dL Total Bilirubin 0.4 (0.0-1.0) mg/dL AST 24 (5-31) U/L ALT 16 (0-31) U/L Alkaline Phosphatase 53 (39-117) U/L Total Protein 7.2 (6.5-8.0) g/dL Albumin 4.4 (3.5-5.0) g/dL Beta HCG, Quant mIU/mL 04/16/23 Range/Units 15:15 WBC (4.8-10.8) X10*3/uL RBC (4.20-5.50) X10*6/uL Hgb (12.0-16.0) g/dl Hct (37.0-47.0) % MCV (80.0-98.0) fL MCH (27.0-33.0) pg MCHC (31.0-35.0) g/dl RDW (11.0-16.0) % Plt Count (160-400) X10*3/uL MPV (9.4-12.3) fL Immature Gran % (Auto) (0.0-0.4) % Neut % (Auto) (45-73) % Lymph % (Auto) (20-40) % [place] % (Auto) (2-11) % Eos % (Auto) (0-4) % Baso % (Auto) (0-2) % Lymph # (Auto) (1.2-4.9) X10*3/uL [place] # (Auto) (0.1-1.2) X10*3/uL Eos # (Auto) (0.0-0.4) X10*3/uL Baso # (Auto) (0.0-0.2) X10*3/uL Abs Immat Gran (auto) (0.00-0.03) X10*3/uL Absolute Neuts (auto) (2.0-8.3) x10*3/uL Absolute Nucleated RBC (0.0-0.012) X10*3/uL Nucleated RBC % (auto) (0.0-0.2) /100WBC PT (10.0-13.1) SEC INR (0.9-1.1) APTT (26.0-36.4) SEC Sodium (135-145) mmol/L Potassium (3.3-5.1) mmol/L Chloride (96-108) mmol/L Carbon Dioxide (22-29) mmol/L Anion Gap (12-20) BUN (9-16) mg/dL Creatinine (0.5-1.4) mg/dL Estim Creat Clear Calc Estimated GFR Random Glucose (60-115) mg/dL Calcium (8.4-10.2) mg/dL Total Bilirubin (0.0-1.0) mg/dL AST (5-31) U/L ALT (0-31) U/L Alkaline Phosphatase (39-117) U/L Total Protein (6.5-8.0) g/dL Albumin (3.5-5.0) g/dL Beta HCG, Quant < 2 mIU/mL Discharge Plan Discharge Clinical Impression: Vaginal bleeding Patient Disposition: Elopement Prescriptions: No Action clonazepam 2 mg tablet 1 tab PO TID PRN (Reason: Agitation) fluoxetine 20 mg capsule 1 cap PO DAILY cholecalciferol (vitamin D3) 50 mcg (2,000 unit) capsule 1 cap PO DAILY cephalexin 500 mg tablet 500 mg PO Q6H 10 Days Qty: 40 0RF doxycycline hyclate 100 mg capsule 100 mg PO BID 10 Days Qty: 20 0RF Discharge Date/Time: 04/16/23 17:58
[2023-04-16 15:20] LABS: MANUAL DIFF FLAG NO
[2023-04-16 15:24] LABS: Basophils Absolute Auto 0.1 X10*3/uL (0.0-0.2); Basophils Percent Auto 0.9 % (0-2); Eosinophils Absolute Auto 0.1 X10*3/uL (0.0-0.4); Eosinophils Percent Auto 1.1 % (0-4); Hematocrit 39.4 % (37.0-47.0); Imm Gran Abs Auto 0.02 X10*3/uL (0.00-0.03); Imm Gran Pct Auto 0.3 % (0.0-0.4); Lymphocytes Absolute Auto 1.6 X10*3/uL (1.2-4.9); Lymphocytes Percent Auto 23.4 % (20-40); Mean Corpuscular Hemoglobin 30.5 pg (27.0-33.0); Mean Corpuscular Volume 92.5 fL (80.0-98.0); Mean Platelet Volume 12.1 fL (9.4-12.3); Monocytes Absolute Auto 0.4 X10*3/uL (0.1-1.2); Monocytes Percent Auto 5.7 % (2-11); Neutrophils Absolute Auto 4.5 x10*3/uL (2.0-8.3); Neutrophils Percent Auto 68.6 % (45-73); Platelet Count 159 X10*3/uL (160-400); Red Blood Count 4.26 X10*6/uL (4.20-5.50); Red Cell Distribution Width 12.9 % (11.0-16.0); White Blood Count 6.6 X10*3/uL (4.8-10.8)
[2023-04-16 15:29] LABS: Partial Thromboplastin Time 34.7 SEC (26.0-36.4)
[2023-04-16 15:47] LABS: Alanine Aminotransferase 16 U/L (0-31); Albumin Level 4.4 g/dL (3.5-5.0); Alkaline Phosphatase 53 U/L (39-117); Anion Gap 9 (12-20); Aspartate Amino Transferase 24 U/L (5-31); Bilirubin Total 0.4 mg/dL (0.0-1.0); Blood Urea Nitrogen 12 mg/dL (9-16); Calcium 9.3 mg/dL (8.4-10.2); Carbon Dioxide 29 mmol/L (22-29); Chloride 106 mmol/L (96-108); Creatinine Clr Calc Pharmacy 75.7; Estimated Glomerular Filt Rate > 60; Glucose Random 93 mg/dL (60-115); Potassium 3.3 mmol/L (3.3-5.1); Sodium 141 mmol/L (135-145); Total Protein 7.2 g/dL (6.5-8.0)
[2023-04-16 15:50] LABS: HCG Quantitative < 2 mIU/mL
== END 2023-04-16 17:58 | disposition left against medical advice (07) ==
PROVIDERS: Physician Assistant; Emergency Provider Emergency Medicine; PCP Internal Medicine
DX: R10.30 Lower abdominal pain, unspecified (principal); N93.9 Abnormal uterine and vaginal bleeding, unspecified; Z98.51 Tubal ligation status
CPT/HCPCS: 36415; 80053; 84702; 85025; 85610; 85730; 99281; 99283

== ENCOUNTER 2023-08-17 20:08 | Emergency (ER) | payer MEDICARE, MEDICAID, SELFPAY | END 2023-08-17 22:16 | disposition left against medical advice (07) | LOC: HO.ED 21:54 | PROVIDERS: Emergency Provider Emergency Medicine; PCP Internal Medicine | DX: A18.4 Tuberculosis of skin and subcutaneous tissue (principal) ==

== ENCOUNTER 2024-01-12 01:40 | Emergency (ER) | payer MEDICARE, SELFPAY ==
[2024-01-12 01:46] VITALS: BP 104/46; PULSE 88; O2SAT 100
[2024-01-12 02:04] VITALS: BP 148/91; PULSE 80; RESP 17; TEMP 36.7; O2SAT 99
[2024-01-12 02:39] VITALS: BMI 23.3
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
--- NOTE | 2024-01-12 07:41 | PC.NURSE ---
Pt awake, states she wants to leave now. Okay per .
--- NOTE | 2024-01-12 07:52 | PC.NURSE ---
Pt now wants to wait until after breakfast to leave.
--- NOTE | 2024-01-12 08:09 | PC.NURSE ---
Pt verbally aggressive, sarcastic and rude towards staff. Pt refusing IN Narcan, I don't need that shit. Security at bedside.
== END 2024-01-12 08:27 | disposition home or self-care (01) ==
PROVIDERS: Emergency Provider Emergency Medicine
DX: T40.1X1A Poisoning by heroin, accidental (unintentional), initial encounter (principal); T40.5X1A Poisoning by cocaine, accidental (unintentional), initial encounter; Y92.410 Unspecified street and highway as the place of occurrence of the external cause
CPT/HCPCS: 99284; 99285

== ENCOUNTER 2024-01-13 06:31 | Emergency (ER) | payer MEDICARE, MEDICAID, SELFPAY ==
[2024-01-13 06:40] VITALS: BP 128/72; PULSE 108; O2SAT 96
[2024-01-13 06:42] VITALS: BMI 24.8
--- NOTE | 2024-01-13 06:43 | MHC.EDTECH ---
Patient came in by EMS,Changed into hospital attire,vitals taken and all belongings locked in [place],security at bedside for changeover.
[2024-01-13 06:47] VITALS: BP 142/79; PULSE 92; RESP 20; TEMP 36.6; O2SAT 97
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
--- NOTE | 2024-01-13 08:03 | MHC.EDTECH ---
Urine samples obtained from Pt: Ct/ng, uds and ua. Pt refused labs at this time. YASMEEN Delarosa aware
[2024-01-13 08:07] LABS: Appearance Urine Clear; Color Urine Yellow; Glucose Urine UA Negative (Negative); Leukocyte Esterase Urine Negative (Negative); Nitrite Urine Negative (Negative); PH 6.5 (5.0-9.0); UMIC TRIGGER UACC YES; Urine Blood Large (3+) (Negative); Urine Ketones Negative (Negative); Urine Protein Trace mg/dL (Neg-Trace)
[2024-01-13 08:11] LABS: Bacteria Urine None Seen (None Seen); Hyaline Casts Urine 0-2 /LPF (0-2); RBC Urine >20 /HPF (0-2); Squamous Epithelial Cell Urine 0-2 /HPF (0-2); WBC Urine 0-5 /HPF (0-5)
[2024-01-13 08:14] LABS: Amphetamine Screen Urine Not Detected (Not Detect); Barbiturates, Urine Not Detected (Not Detect); Benzodiazepines Screen Urine Not Detected (Not Detect); Cannabinoid Screen Urine Not Detected (Not Detect); Cocaine Screen Urine POSITIVE (Not Detect); Fentanyl, urine POSITIVE (Not Detect); Opiate Screen Urine POSITIVE (Not Detect); Phencyclidine Screen Urine Not Detected (Not Detect)
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
[2024-01-13 08:38] LABS: UPreg QC Valid YES; Urine Pregnancy NEGATIVE (NEGATIVE)
[2024-01-13 08:41] VITALS: BP 135/94; PULSE 85; RESP 18; TEMP 37.1; O2SAT 96
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
[2024-01-13 09:51] LABS: CT PCR NOT DETECTED (Not Detect.); NG PCR NOT DETECTED (Not Detect.)
== END 2024-01-13 08:58 | disposition left against medical advice (07) ==
PROVIDERS: Emergency Provider Student in an Organized Health Care Education/Training Program; PCP Internal Medicine
DX: F11.188 Opioid abuse with other opioid-induced disorder (principal); F14.10 Cocaine abuse, uncomplicated; Z20.828 Contact with and (suspected) exposure to other viral communicable diseases; Z79.899 Other long term (current) drug therapy
CPT/HCPCS: 0353U; 80307; 81001; 81025; 99283; 99284

== ENCOUNTER 2024-01-13 13:40 | Emergency (ER) | payer MEDICARE, SELFPAY ==
[2024-01-13 13:46] VITALS: BP 175/100; PULSE 89; O2SAT 98
[2024-01-13 14:20] VITALS: PULSE 108; RESP 19; TEMP 36.6; O2SAT 96; BMI 24.9
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
[2024-01-13] MEDS: LORazepam 2 MG/ML VIAL IVPUSH (14:35)
[2024-01-13] MEDS: diphenhydrAMINE HCL 50 MG/ML VIAL IVPUSH (15:26)
[2024-01-13 15:50] VITALS: BP 123/83; PULSE 100; RESP 16; TEMP 36.8; O2SAT 97
[2024-01-13 15:56] LABS: MANUAL DIFF FLAG NO
[2024-01-13] MEDS: OLANZapine ODT 10 MG TAB.RAPDIS TRANSLINGU (16:06)
[2024-01-13 16:07] LABS: Amphetamine Screen Urine Not Detected (Not Detect); Barbiturates, Urine Not Detected (Not Detect); Benzodiazepines Screen Urine Not Detected (Not Detect); Cannabinoid Screen Urine Not Detected (Not Detect); Cocaine Screen Urine POSITIVE (Not Detect); Fentanyl, urine POSITIVE (Not Detect); Opiate Screen Urine POSITIVE (Not Detect); Phencyclidine Screen Urine Not Detected (Not Detect)
[2024-01-13 16:14] LABS: Basophils Absolute Auto 0.1 X10*3/uL (0.0-0.2); Basophils Percent Auto 0.8 % (0-2); Eosinophils Percent Auto 0.3 % (0-4); Hemoglobin 10.9 g/dl (12.0-16.0); Imm Gran Abs Auto 0.05 X10*3/uL (0.00-0.03); Imm Gran Pct Auto 0.4 % (0.0-0.4); Lymphocytes Absolute Auto 2.4 X10*3/uL (1.2-4.9); Lymphocytes Percent Auto 17.9 % (20-40); Mean Corpuscular HGB Conc 34.1 g/dl (31.0-35.0); Mean Corpuscular Volume 90.9 fL (80.0-98.0); Mean Platelet Volume 11.4 fL (9.4-12.3); Monocytes Absolute Auto 1.3 X10*3/uL (0.1-1.2); Monocytes Percent Auto 9.6 % (2-11); Neutrophils Absolute Auto 9.4 x10*3/uL (2.0-8.3); Platelet Count 236 X10*3/uL (160-400); Red Blood Count 3.52 X10*6/uL (4.20-5.50); Red Cell Distribution Width 13.1 % (11.0-16.0); White Blood Count 13.2 X10*3/uL (4.8-10.8)
--- NOTE | 2024-01-13 16:55 | PC.NURSE ---
Arrived from main ED escorted by security, patient initially agitated stating she was not going into the POD however easily re directable. Changed over into hospital attire, belongings locked in decon by security. Patient sitting in room eating snacks/ drinking fluids.
[2024-01-13 17:41] LABS: Alanine Aminotransferase 28 U/L (0-31); Albumin Level 4.2 g/dL (3.5-5.0); Alkaline Phosphatase 56 U/L (39-117); Anion Gap 10 (12-20); Aspartate Amino Transferase 45 U/L (5-31); Bilirubin Direct 0.3 mg/dL (0.0-0.5); Bilirubin Total 0.7 mg/dL (0.0-1.0); Blood Urea Nitrogen 14 mg/dL (9-16); Carbon Dioxide 32 mmol/L (22-29); Chloride 101 mmol/L (96-108); Creatinine Clr Calc Pharmacy 79.6; Estimated Glomerular Filt Rate > 60; Glucose Random 79 mg/dL (60-115); HCG Quantitative < 2 mIU/mL; Magnesium 2.1 mg/dL (1.6-2.6); Potassium 3.4 mmol/L (3.3-5.1); Sodium 140 mmol/L (135-145); Total Protein 6.8 g/dL (6.5-8.0)
[2024-01-13] MEDS: LORazepam 1 MG TABLET 2 MG PO (23:52)
--- NOTE | 2024-01-13 23:52 | MHC.CARE ---
Pt is currently not clinically appropriate to assess tonight.She will be assessed in the morning.
[2024-01-14 06:31] VITALS: BP 165/99; PULSE 74; RESP 16; TEMP 36.6; O2SAT 96
--- NOTE | 2024-01-14 08:34 | HE.PHANOTE ---
RE: METHADONE DOSING Last dose of 70 mg was given on 01/11/24 at 0830 at [facility] per Anu.
--- NOTE | 2024-01-14 09:00 | MHC.CARE ---
attempted to reach patient's mother via the contact in [employer], Gege Schultz, , VM currently full. will try again.
--- NOTE | 2024-01-14 09:33 | PC.NURSE ---
Assumed care of patient at 0700, patient woke up, yelling at this RN stating I don't know why I am here, get my damn clothes, why the fuck am I here . This RN attempted to explain to patient why she is here however, she began yelling again, unwilling to engage in conversation. CARE team went to speak with patient but she was unwilling to participate, falling asleep while talking, unable to fully answer questions. CARE team will re-approach later
--- NOTE | 2024-01-14 14:18 | MHC.CARE ---
patient is an inpatient loc bed search at this time.
[2024-01-14] MEDS: methADONE HCl 20 MG/2 ML ORAL.CONC 70 MG PO (14:22)
[2024-01-14] MEDS: Haloperidol Lactate 5 MG/ML VIAL IM (15:02)
[2024-01-14] MEDS: LORazepam 2 MG/ML VIAL 1 MG IM (15:02)
[2024-01-14 15:18] VITALS: RESP 16
--- NOTE | 2024-01-14 15:19 | PC.NURSE ---
Late entry: At around 1450, patient began getting upset, requesting to leave. This RN informed patient that she is a Section 12, inpatient bedsearch. Pt became angry and started yelling at this RN that she wants to talk CARE team about her section 12. When Maya, CARE team came out of the office patient became verbally confrontational, threatening staff and Maya. Security called to assist. Pt ambulated independently back to room, continuing to verbally escalate. This Rn attempted to verbally re-direct patient. Pt swearing at this RN, threatening to elope. IM medications ordered Ativan and Haldol, after some talking down, patient was agreeable to taking IM medications willingly without physical hold. Pt did continue to verbally esclate, screaming this is fucking bullshit, I have the right to smoke crack with my money if I choose to, I have the right to leave . This RN attempted to validate the patients feelings however, patient continued to yell over this RN. Threatening I dont mind crossing anyone at this point Pt is now resting on bed, respirations even and unlabored, appears to be sleeping at this time
[2024-01-14 15:33] VITALS: RESP 14
[2024-01-14 15:48] VITALS: RESP 16
[2024-01-14 16:03] VITALS: PULSE 82; RESP 14; O2SAT 97
--- NOTE | 2024-01-14 18:56 | PC.NURSE ---
patient appears to remain at restat present respirations are even and unlabored patient appears in no distress.
--- NOTE | 2024-01-15 | ECG_ITS ---
Test Reason : QT INTERVAL Blood Pressure : / mmHG Vent. Rate : 071 BPM Atrial Rate : 071 BPM P-R Int : 150 ms QRS Dur : 074 ms QT Int : 406 ms P-R-T Axes : 059 058 049 degrees QTc Int : 441 ms Normal sinus rhythm Normal ECG When compared with ECG of 30-NOV-2017 21:45, No significant change was found Referred By: Jluis Alan Electronically Signed By:Raymond Salazar
[2024-01-15 05:45] VITALS: BP 172/83; PULSE 89
[2024-01-15 09:37] LABS: Appearance Urine Cloudy; Color Urine Yellow; Glucose Urine UA Negative (Negative); Leukocyte Esterase Urine Negative (Negative); Nitrite Urine Negative (Negative); PH 7.5 (5.0-9.0); Specific Gravity - Urine 1.025 (1.005-1.025); UMIC TRIGGER UACC YES; Urine Blood Moderate (2+) (Negative); Urine Ketones Negative (Negative); Urine Protein Negative (Neg-Trace)
[2024-01-15 09:42] LABS: Bacteria Urine None Seen (None Seen); Hyaline Casts Urine 0-2 /LPF (0-2); RBC Urine >20 /HPF (0-2); WBC Urine 0-5 /HPF (0-5)
[2024-01-15 09:49] LABS: COVID-19 Test Negative (Negative); IDNOW Serial# 152EDE1D
[2024-01-15] MEDS: FLUoxetine HCl 20 MG CAPSULE PO (10:02)
[2024-01-15] MEDS: Levothyroxine Sodium 100 MCG TABLET PO (10:02)
[2024-01-15] MEDS: busPIRone HCl 5 MG TABLET 15 MG PO (10:02)
[2024-01-15] MEDS: clonazePAM 1 MG TABLET 2 MG PO (10:02)
[2024-01-15] MEDS: FLUoxetine HCl 10 MG CAPSULE PO (10:02)
[2024-01-15] MEDS: Doxepin HCl 25 MG CAPSULE 75 MG PO (10:02)
[2024-01-15] MEDS: Hydroxychloroquine Sulfate 200 MG TABLET 400 MG PO (10:02)
[2024-01-15] MEDS: methADONE HCl 20 MG/2 ML ORAL.CONC 70 MG PO (10:12)
== END 2024-01-15 10:44 | disposition home or self-care (01) ==
PROVIDERS: Emergency Medicine; Emergency Provider Emergency Medicine
DX: S60.812A Abrasion of left wrist, initial encounter (principal); R56.9 Unspecified convulsions; F31.9 Bipolar disorder, unspecified; F11.10 Opioid abuse, uncomplicated; F14.10 Cocaine abuse, uncomplicated; R94.31 Abnormal electrocardiogram [ECG] [EKG]; X78.1XXA Intentional self-harm by knife, initial encounter; Y93.9 Activity, unspecified; Y92.9 Unspecified place or not applicable; Y99.8 Other external cause status; Z11.52 Encounter for screening for COVID-19; Z63.79 Other stressful life events affecting family and household; Z79.899 Other long term (current) drug therapy
CPT/HCPCS: 36415; 80048; 80076; 80307; 81001; 83735; 84702; 85025; 87635; 93005; 96372; 96374; 96375; 99285; J1200; J1630; J2060; S9485

== ENCOUNTER → 2024-01-15 09:11 | Outpatient (BNV) | payer MEDICARE, SELFPAY | PROVIDERS: Emergency Provider Emergency Medicine; Visit Provider Internal Medicine Cardiovascular Disease | DX: R56.9 Unspecified convulsions (principal) | CPT/HCPCS: 93010 ==

== ENCOUNTER 2024-02-25 10:20 | Emergency (ER) | payer MEDICARE, SELFPAY ==
[2024-02-25 10:29] VITALS: BP 122/71; PULSE 66; RESP 16; TEMP 36.8; O2SAT 98; BMI 24.0
== END 2024-02-25 15:58 | disposition left against medical advice (07) ==
LOC: HO.ED 15:51
PROVIDERS: Emergency Provider Emergency Medicine
DX: R11.2 Nausea with vomiting, unspecified (principal)
CPT/HCPCS: 99281

== ENCOUNTER 2024-02-29 21:54 | Emergency (ER) | payer MEDICARE, SELFPAY ==
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
--- NOTE | 2024-02-29 22:08 | ECG_ITS ---
Test Reason : CHEST PAIN Blood Pressure : / mmHG Vent. Rate : 064 BPM Atrial Rate : 064 BPM P-R Int : 146 ms QRS Dur : 086 ms QT Int : 408 ms P-R-T Axes : 043 061 055 degrees QTc Int : 420 ms Normal sinus rhythm Normal ECG When compared with ECG of 15-JAN-2024 09:11, No significant change was found Referred By: Generic ED Physician Electronically Signed By:CE SINGER MD
[2024-02-29 22:21] VITALS: BP 142/100; PULSE 83; O2SAT 97; BMI 22.4
[2024-02-29 22:31] VITALS: BP 165/106; PULSE 65; RESP 12; TEMP 36.8; O2SAT 98
[2024-02-29 22:49] LABS: MANUAL DIFF FLAG NO
[2024-02-29 22:51] LABS: Basophils Absolute Auto 0.1 X10*3/uL (0.0-0.2); Basophils Percent Auto 0.6 % (0-2); Eosinophils Absolute Auto 0.1 X10*3/uL (0.0-0.4); Eosinophils Percent Auto 0.8 % (0-4); Hematocrit 34.8 % (37.0-47.0); Hemoglobin 11.8 g/dl (12.0-16.0); Imm Gran Abs Auto 0.03 X10*3/uL (0.00-0.03); Imm Gran Pct Auto 0.3 % (0.0-0.4); Lymphocytes Absolute Auto 2.4 X10*3/uL (1.2-4.9); Lymphocytes Percent Auto 21.5 % (20-40); Mean Corpuscular HGB Conc 33.9 g/dl (31.0-35.0); Mean Corpuscular Hemoglobin 31.1 pg (27.0-33.0); Mean Corpuscular Volume 91.6 fL (80.0-98.0); Mean Platelet Volume 10.5 fL (9.4-12.3); Monocytes Absolute Auto 0.8 X10*3/uL (0.1-1.2); Monocytes Percent Auto 6.7 % (2-11); Neutrophils Absolute Auto 7.9 x10*3/uL (2.0-8.3); Neutrophils Percent Auto 70.1 % (45-73); Platelet Count 292 X10*3/uL (160-400); Red Cell Distribution Width 13.1 % (11.0-16.0); White Blood Count 11.3 X10*3/uL (4.8-10.8)
[2024-02-29 22:53] LABS: Appearance Urine Cloudy; Color Urine Yellow; Glucose Urine UA Negative (Negative); Leukocyte Esterase Urine Moderate (2+) (Negative); Nitrite Urine Negative (Negative); PH 8.5 (5.0-9.0); UMIC TRIGGER UACC YES; Urine Blood Large (3+) (Negative); Urine Ketones Trace mg/dL (Negative); Urine Protein 30 (1+) mg/dL (Neg-Trace)
[2024-02-29 22:54] LABS: UPreg QC Valid YES; Urine Pregnancy NEGATIVE (NEGATIVE)
[2024-02-29 22:58] LABS: Bacteria Urine 4+ (None Seen); Hyaline Casts Urine 0-2 /LPF (0-2); RBC Urine >20 /HPF (0-2); UACC Culture Trigger YES; WBC Urine >50 /HPF (0-5)
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
[2024-02-29 23:12] LABS: Amphetamine Screen Urine Not Detected (Not Detect); Barbiturates, Urine Not Detected (Not Detect); Benzodiazepines Screen Urine Not Detected (Not Detect); Buprenorphine Scr Not Detected (Not Detect); Cannabinoid Screen Urine Not Detected (Not Detect); Cocaine Screen Urine POSITIVE (Not Detect); Fentanyl, urine POSITIVE (Not Detect); Methadone Screen, Urine Not Detected (Not Detect); Opiate Screen Urine POSITIVE (Not Detect); Oxycodone Screen Urine Not Detected (Not Detect); Phencyclidine Screen Urine Not Detected (Not Detect)
[2024-02-29 23:14] LABS: Anion Gap 12 (12-20); Blood Urea Nitrogen 16 mg/dL (9-16); Calcium 9.2 mg/dL (8.4-10.2); Carbon Dioxide 28 mmol/L (22-29); Chloride 105 mmol/L (96-108); Creatinine Clr Calc Pharmacy 106.9; Estimated Glomerular Filt Rate > 60; Glucose Random 100 mg/dL (60-115); Magnesium 2.4 mg/dL (1.6-2.6); Potassium 3.7 mmol/L (3.3-5.1); Sodium 141 mmol/L (135-145)
[2024-02-29 23:20] LABS: Troponin-I High Sensitivity 3.5 ng/L (<3.5-17.0)
[2024-02-29] MEDS: cefuroxime axetiL 250 MG TABLET PO (23:23)
[2024-02-29 23:59] VITALS: BP 152/96; PULSE 70; RESP 16; TEMP 36.7; O2SAT 99
[2024-03-01 00:44] VITALS: BP 152/96; PULSE 70; RESP 16; TEMP 36.6; O2SAT 99
== END 2024-03-01 00:59 | disposition home or self-care (01) ==
PROVIDERS: Emergency Provider Internal Medicine
DX: R07.89 Other chest pain (principal); R42 Dizziness and giddiness; N39.0 Urinary tract infection, site not specified; F14.10 Cocaine abuse, uncomplicated; M54.50 Low back pain, unspecified; F11.20 Opioid dependence, uncomplicated; Z59.00 Homelessness unspecified; Z79.899 Other long term (current) drug therapy
CPT/HCPCS: 36415; 71045; 80048; 80307; 81001; 81025; 83735; 84484; 85025; 87086; 87088; 87186; 93005; 99283; 99285

== ENCOUNTER → 2024-02-29 22:08 | Outpatient (BNV) | payer MEDICARE, SELFPAY | PROVIDERS: Emergency Provider Internal Medicine; Visit Provider Internal Medicine Cardiovascular Disease | DX: R07.9 Chest pain, unspecified (principal) | CPT/HCPCS: 93010 ==

== ENCOUNTER 2024-03-10 19:43 | Emergency (ER) | payer MEDICARE, SELFPAY ==
[2024-03-10 19:46] VITALS: BP 132/87; BP 163/104; PULSE 68; PULSE 98; RESP 18; TEMP 36.8; O2SAT 97; O2SAT 99; BMI 26.6
--- NOTE | 2024-03-10 20:09 | PC.NURSE ---
Initial assessment complete, protocol orders entered. pt demanded to walk to bathroom despite offers for bedpan, commode and alternatives. Pt escorted to bathroom by crop and soil technician, noted steady gait, no deficits. On return to room, pt demanded to elave. Spoke with MD Mauricio, however, pt left without further statement.
[2024-03-10 20:14] VITALS: BP 132/87; PULSE 68; RESP 18; TEMP 36.8; O2SAT 97
== END 2024-03-10 20:15 | disposition left against medical advice (07) ==
PROVIDERS: Emergency Provider Emergency Medicine
DX: F14.10 Cocaine abuse, uncomplicated (principal); F11.90 Opioid use, unspecified, uncomplicated; F43.10 Post-traumatic stress disorder, unspecified; F31.9 Bipolar disorder, unspecified; Z53.21 Procedure and treatment not carried out due to patient leaving prior to being seen by health care provider
CPT/HCPCS: 99282; 99284

== ENCOUNTER 2024-03-21 01:44 | Inpatient (IN) | payer MEDICARE, OTHER, SELFPAY ==
[2024-03-21 01:53] VITALS: BP 157/85; PULSE 80; RESP 18; TEMP 36.7; O2SAT 99; BMI 23.0
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
--- NOTE | 2024-03-21 02:34 | MHC.EDTECH ---
patients belongings in locker#10 in POD
--- NOTE | 2024-03-21 03:10 | PC.NURSE ---
kennedy lopez spoke with patient.
[2024-03-21 03:22] LABS: Hemoglobin 12.4 g/dl (12.0-16.0); Mean Corpuscular HGB Conc 34.4 g/dl (31.0-35.0); Mean Corpuscular Hemoglobin 31.3 pg (27.0-33.0); Mean Corpuscular Volume 90.9 fL (80.0-98.0); Platelet Count 257 X10*3/uL (160-400); Red Blood Count 3.96 X10*6/uL (4.20-5.50); White Blood Count 11.2 X10*3/uL (4.8-10.8)
[2024-03-21 03:32] VITALS: BP 139/76; PULSE 75; RESP 16; TEMP 36.8; O2SAT 98
[2024-03-21 03:37] LABS: Alanine Aminotransferase 17 U/L (0-31); Albumin Level 4.1 g/dL (3.5-5.0); Alkaline Phosphatase 59 U/L (39-117); Anion Gap 15 (12-20); Aspartate Amino Transferase 27 U/L (5-31); Bilirubin Total 0.7 mg/dL (0.0-1.0); Blood Urea Nitrogen 18 mg/dL (9-16); Calcium 8.8 mg/dL (8.4-10.2); Carbon Dioxide 24 mmol/L (22-29); Chloride 104 mmol/L (96-108); Creatinine Clr Calc Pharmacy 85.7; Estimated Glomerular Filt Rate > 60; Glucose Random 113 mg/dL (60-115); Potassium 3.5 mmol/L (3.3-5.1); Sodium 139 mmol/L (135-145); Total Protein 6.7 g/dL (6.5-8.0)
[2024-03-21 04:09] LABS: Ethanol < 10 mg/dL
--- NOTE | 2024-03-21 05:41 | PC.NURSE ---
Patient was transferred to ED POD at 0215, sleeping since she came to POD, med rec completed, patient is compliant with few medication, urine pending, care consult ordered/pending evaluation, patient requested for no visitors for her, VSS, will continue to monitor
[2024-03-21 06:09] LABS: Thyroid Stimulating Hormone 5.84 uIU/mL (0.32-4.0)
[2024-03-21 06:24] LABS: Appearance Urine Clear; Bacteria Urine Trace (None Seen); Color Urine Yellow; Glucose Urine UA Negative (Negative); Hyaline Casts Urine 0-2 /LPF (0-2); Leukocyte Esterase Urine Negative (Negative); Nitrite Urine Negative (Negative); RBC Urine >20 /HPF (0-2); UMIC TRIGGER UACC YES; Urine Blood Moderate (2+) (Negative); Urine Ketones Negative (Negative); Urine Protein Negative (Neg-Trace); WBC Urine 0-5 /HPF (0-5)
[2024-03-21 06:30] LABS: Amphetamine Screen Urine Not Detected (Not Detect); Barbiturates, Urine Not Detected (Not Detect); Benzodiazepines Screen Urine Not Detected (Not Detect); Buprenorphine Scr Not Detected (Not Detect); Cannabinoid Screen Urine Not Detected (Not Detect); Cocaine Screen Urine POSITIVE (Not Detect); Fentanyl, urine POSITIVE (Not Detect); Methadone Screen, Urine Not Detected (Not Detect); Opiate Screen Urine POSITIVE (Not Detect); Oxycodone Screen Urine Not Detected (Not Detect); Phencyclidine Screen Urine Not Detected (Not Detect)
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
--- NOTE | 2024-03-21 07:07 | PC.NURSE ---
Assumed care of patient at 0645. Patient is observed sleeping in her bed. No signs of distress, breathing is even and unlabored. Will continue plan of care.
--- NOTE | 2024-03-21 10:23 | HE.PHANOTE ---
RE: methadone Methadone verification from [facility] last dose 40mg 03/18/24 @[id number]
[2024-03-21] MEDS: busPIRone HCl 5 MG TABLET 15 MG PO (10:27)
[2024-03-21] MEDS: methADONE HCl 20 MG/2 ML ORAL.CONC 40 MG PO (10:27)
[2024-03-21] MEDS: Acetaminophen 325 MG TABLET 975 MG PO (12:32)
[2024-03-21] MEDS: clonazePAM 1 MG TABLET 2 MG PO ×2 (12:32→20:49)
[2024-03-21] MEDS: Nicotine Polacrilex 2 MG GUM BUCCAL (12:33)
[2024-03-21] MEDS: diphenhydrAMINE HCL 25 MG CAPSULE 50 MG PO (13:54)
--- NOTE | 2024-03-21 14:36 | ECG_ITS ---
Test Reason : QT CHECK Blood Pressure : / mmHG Vent. Rate : 070 BPM Atrial Rate : 070 BPM P-R Int : 128 ms QRS Dur : 074 ms QT Int : 414 ms P-R-T Axes : -11 056 056 degrees QTc Int : 447 ms Normal sinus rhythm Normal ECG When compared with ECG of 29-FEB-2024 22:10, No significant change was found Referred By: Ivette Jimenez Electronically Signed By:CE SINGER MD
[2024-03-21] MEDS: Hydroxychloroquine Sulfate 200 MG TABLET PO (20:48)
--- NOTE | 2024-03-22 00:05 | MHC.EDTECH ---
Patient awake and at desk asking for food,jello,pudding and coffee. Coffee not available tea given instead.
[2024-03-22] MEDS: diphenhydrAMINE HCL 25 MG CAPSULE 50 MG PO ×2 (00:12→22:16)
[2024-03-22 00:15] VITALS: BP 128/76; PULSE 72; RESP 14; TEMP 36.7; O2SAT 100
--- NOTE | 2024-03-22 00:45 | MHC.EDTECH ---
patient asking for something to help her sleep. YASMEEN Begum made aware.
[2024-03-22] MEDS: Levothyroxine Sodium 100 MCG TABLET PO (05:46)
--- NOTE | 2024-03-22 07:03 | PC.NURSE ---
Patient slept through the night, no distress observed/reported, disposition per care team is section 12 inpatient bed search, meds and meals compliant, no behavior issues, will continue to monitor
--- NOTE | 2024-03-22 07:10 | PC.NURSE ---
Assumed care of patient at 0645. Patient is observed resting quietly in their bed. No signs of distress observed. Breathing is even and unlabored. Will continue plan of care.
[2024-03-22] MEDS: methADONE HCl 20 MG/2 ML ORAL.CONC 40 MG PO (08:45)
[2024-03-22] MEDS: busPIRone HCl 5 MG TABLET 15 MG PO (08:45)
[2024-03-22] MEDS: Hydroxychloroquine Sulfate 200 MG TABLET PO ×2 (08:45→21:09)
[2024-03-22] MEDS: clonazePAM 1 MG TABLET 2 MG PO ×3 (08:49→21:07)
--- NOTE | 2024-03-22 11:08 | MHC.EDTECH ---
At this time bedding was changed per pt's request. Gathered [facility] attire and shower supplies for pt to take a shower.
[2024-03-22 13:19] LABS: UPreg QC Valid YES; Urine Pregnancy NEGATIVE (NEGATIVE)
--- NOTE | 2024-03-22 13:55 | PHA.MEDREC ---
Pharmacy Consult ? Medication Reconciliation Pharmacy has reviewed the medication reconciliation completed by nursing.
[2024-03-22 14:03] VITALS: BP 160/95; PULSE 78; RESP 16; TEMP 36.9; O2SAT 99
--- NOTE | 2024-03-22 16:14 | PC.NURSE ---
pt reports she was receiving 120mg of methadone at her outpt clinic. Per JEREMIAS Hernández @ [facility], pt started on 40mg of methadone on 03/04 and was increased to 70mg on 03/06 and then increased to 80mg on 03/09. Pt was then absent from the clinic for 8 days and returned on 03/18 and received 40mg of methadone. JEREMIAS Hernández at [facility] reports the pt has never received 120mg of methadone at [facility].
[2024-03-22] MEDS: methADONE HCl 20 MG/2 ML ORAL.CONC 10 MG PO (17:30)
[2024-03-22 18:17] VITALS: BMI 23.5
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
[2024-03-22 20:00] VITALS: BP 152/83; PULSE 80; RESP 17; TEMP 36.1; O2SAT 100
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
[2024-03-22] MEDS: hydrOXYzine HCL 25 MG TABLET PO (21:07)
[2024-03-22] MEDS: Melatonin 3 MG TABLET 6 MG PO (22:16)
[2024-03-23] MEDS: Levothyroxine Sodium 100 MCG TABLET PO (05:46)
[2024-03-23] MEDS: clonazePAM 1 MG TABLET 2 MG PO (07:54)
[2024-03-23] MEDS: hydrOXYzine HCL 25 MG TABLET PO (07:54)
[2024-03-23] MEDS: diphenhydrAMINE HCL 25 MG CAPSULE 50 MG PO (08:00)
[2024-03-23] MEDS: LORazepam 1 MG TABLET 2 MG PO (08:00)
[2024-03-23] MEDS: HaloperidoL 5 MG TABLET PO (08:00)
[2024-03-23] MEDS: methADONE HCl 20 MG/2 ML ORAL.CONC 50 MG PO (08:37)
[2024-03-23] MEDS: Hydroxychloroquine Sulfate 200 MG TABLET PO (08:38)
[2024-03-23] MEDS: Cholecalciferol (Vitamin D3) 25 MCG TABLET 50 MCG PO (08:38)
[2024-03-23] MEDS: busPIRone HCl 5 MG TABLET 15 MG PO (08:38)
[2024-03-23] MEDS: Loratadine 10 MG TABLET PO (08:38)
[2024-03-23] MEDS: Promethazine HCL 25 MG TABLET PO (08:49)
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
== END 2024-03-23 09:29 | disposition other institution (70) | DRG 885 ==
LOC: HO.ED 12:09 → HO.PM5 03-22 13:03
PROVIDERS: Emergency Medicine; Student in an Organized Health Care Education/Training Program; Admitting Provider Clinical Nurse Specialist Psychiatric/Mental Health, Adult; Emergency Provider Internal Medicine; Visit Provider Clinical Nurse Specialist Psychiatric/Mental Health, Adult
DX: F31.9 Bipolar disorder, unspecified (principal); R45.851 Suicidal ideations; F11.20 Opioid dependence, uncomplicated; F43.10 Post-traumatic stress disorder, unspecified; M32.9 Systemic lupus erythematosus, unspecified; F17.210 Nicotine dependence, cigarettes, uncomplicated; Z71.6 Tobacco abuse counseling; Z79.51 Long term (current) use of inhaled steroids; Z79.899 Other long term (current) drug therapy
CPT/HCPCS: 36415; 80053; 80307; 81001; 81025; 84443; 85027; 93005; 99285; S9485

== ENCOUNTER → 2024-03-21 14:36 | Outpatient (BNV) | payer MEDICARE, OTHER, SELFPAY | PROVIDERS: Emergency Provider Internal Medicine; Visit Provider Internal Medicine Cardiovascular Disease | DX: I45.9 Conduction disorder, unspecified (principal) | CPT/HCPCS: 93010 ==

== ENCOUNTER → 2024-03-22 12:58 | Outpatient (BNV) | payer MEDICARE, OTHER, SELFPAY | PROVIDERS: Admitting Provider Clinical Nurse Specialist Psychiatric/Mental Health, Adult; Emergency Provider Internal Medicine; Visit Provider Psychiatry & Neurology Psychiatry | DX: F60.2 Antisocial personality disorder (principal); F14.10 Cocaine abuse, uncomplicated; F11.90 Opioid use, unspecified, uncomplicated; F43.11 Post-traumatic stress disorder, acute | CPT/HCPCS: 99222; 99238 ==

== ENCOUNTER 2024-04-03 22:57 | Emergency (ER) | payer OTHER, SELFPAY ==
[2024-04-03 23:13] VITALS: BP 143/85; PULSE 74; RESP 16; TEMP 36.9; O2SAT 99; BMI 21.2
--- NOTE | 2024-04-03 23:32 | PC.NURSE ---
T/W junior copywriter assisted in climate change analyst, Pt cooperative. Belongings in closet.
--- NOTE | 2024-04-03 23:45 | PC.NURSE ---
Pt A&Ox3, reports increase depression r/t going through divorce, and recent drug use. Reports SI with plan to jump off 5th floor. Pt reports being admitted here recently for same.
--- NOTE | 2024-04-03 23:54 | PC.NURSE ---
pt changed over and sitter at bedside.
--- NOTE | 2024-04-04 01:16 | ED.PSYCH ---
HPI - Psych General Chief Complaint: Psychiatric Symptoms Stated Complaint: crisis eval derpression anxiety Time Seen by Provider: 04/04/24 00:04 Source: patient Mode of arrival: ambulatory Limitations: no limitations History of Present Illness HPI Narrative: Patient history of personality disorder substance abuse cocaine and opiates PTSD and bipolar disorder comes here as still not taking her psych medication for last 1 week his psychiatrist and therapist lately been feeling SI thoughts with a plan to jump out of the 5th story window/ or hang herself with visual hallucination and auditory hallucination superficial abrasion laceration noticed in the bilateral wrist denies HI Related Data Home Medications ?Medication ?Instructions ?Recorded ?Confirmed albuterol sulfate 90 mcg/actuation 2 puff inhalation Q4H PRN wheezing 03/21/24 03/21/24 aerosol inhaler buspirone 15 mg tablet 15 mg PO DAILY 03/21/24 03/21/24 cholecalciferol (vitamin D3) 50 50 mcg PO DAILY 03/21/24 03/21/24 mcg (2,000 unit) capsule clonazepam 2 mg tablet 2 mg PO TID PRN Anxiety 03/21/24 03/21/24 doxepin 75 mg capsule 75 mg PO BID 03/21/24 03/21/24 fluticasone propionate 50 1 spray intranasal DAILY 03/21/24 03/21/24 mcg/actuation nasal spray,suspension hydroxychloroquine 200 mg tablet 400 mg PO DAILY 03/21/24 03/21/24 levalbuterol HCl 1.25 mg/3 mL 1.25 mg inhalation Q4H PRN wheezing 03/21/24 03/21/24 solution for nebulization loratadine 10 mg tablet 10 mg PO DAILY 03/21/24 03/21/24 methadone 10 mg/mL oral 40 mg PO DAILY 03/21/24 03/21/24 concentrate (Methadose) rizatriptan 10 mg tablet 10 mg PO QD-BID PRN migraine 03/21/24 03/21/24 Previous Rx's ?Medication ?Instructions ?Recorded levothyroxine 100 mcg tablet 100 mcg PO DAILY@0600 #0 tabs 03/23/24 (Synthroid) Allergies Allergy/AdvReac Type Severity Reaction Status Date / Time hydrocodone [From VICODIN] Allergy Unknown HIVES Verified 04/03/24 23:16 midazolam [From VERSED] Allergy Unknown AGGRESSION Verified 04/03/24 23:16 rofecoxib [From VIOXX] Allergy Unknown HIVES Verified 04/03/24 23:16 sulfamethoxazole Allergy Unknown UNKNOWN Verified 04/03/24 23:16 [From BACTRIM] trimethoprim [From BACTRIM] Allergy Unknown UNKNOWN Verified 04/03/24 23:16 ibuprofen Allergy Vomiting Verified 04/03/24 23:16 Peanut Butter Allergy Facial Verified 04/03/24 23:16 Swelling bactrim Allergy Unknown Rash Uncoded 04/03/24 23:16 doxycycline Allergy Unknown Rash Uncoded 04/03/24 23:16 vicodin Allergy Unknown Anxiety Uncoded 04/03/24 23:16 viox Allergy Unknown Rash Uncoded 04/03/24 23:16 Review of Systems Review of Systems: Yes all other systems are reviewed and are negative PMFSH Past Medical History Medical History Antisocial personality disorder Cocaine use disorder Opioid use disorder PTSD (post-traumatic stress disorder) Bipolar 1 disorder UTI (urinary tract infection) Migraines Lupus Anxiety Surgical History History of pubovaginal sling Social History Social History Household Members: None Housing: Apartment Do you presently have visiting nurse or other home services: No Unable to assess alcohol history related to: Refusing to respond Alcohol intake: never Patient Tobacco Use Status: Current everyday Tobacco user Tobacco use type: Cigarette Cigarette Packs Per Day: 2 Cigarettes Per Day: 40.0 Years Smoked: 7 years then quit for 19 years and restarted 9 months ago Smoked in Last 30 Days: Yes Second Hand Smoke Exposure: Yes Use of substances other than those prescribed or required for medical reasons: Yes Substance Use Type: Crack/Cocaine and Heroin Advance Directives: No Advance Directives Information Provided: Yes Do you have a plan to hurt others: No Plan Patient : No Physical Exam Vital Signs: Vital Signs: Last Vital Signs Temp 98.4 F 04/03/24 23:13 Pulse 74 04/03/24 23:13 Resp 16 04/03/24 23:13 BP 143/85 H 04/03/24 23:13 Pulse Ox 99 04/03/24 23:13 O2 Del Method Room Air 04/03/24 23:13 BMI result Body Mass Index 21.2 Appearance: Alert. Oriented X3. No acute distress. Eyes: PERRLA, No Nystagmus ENT: Pharynx normal. Oral Mucosa moist Neck: Normal inspection. Neck supple. CVS: Normal heart rate and rhythm. Pulses normal. Respiratory: No respiratory distress. Equal air entry bilateral, no wheezing/rales/rhonchi Abdomen: Soft and nontender. Bowel sounds are present, no mass palpable, no CVA tenderness Skin: Skin warm and dry. Normal skin color. Normal skin turgor. Extremities: No lower extremity edema. No calf tenderness psych calm and cooperative denies SI at this time Neuro: Oriented X 3. No motor deficit. No sensory deficit.No cerebellar signs , cranial nerves II-XII intact Medical Decision Making Medical Decision Making MDM Narrative: Patient with significant bipolar PTSD history with SI with visual and auditory hallucinations will get care team involved for evaluation for likely placement Section 12 applied Discharge Plan Discharge Clinical Impression: Bipolar disorder, PTSD (post-traumatic stress disorder), Suicidal ideation Patient Disposition: Still a Patient Prescriptions: No Action clonazepam 2 mg tablet 2 mg PO TID PRN (Reason: Anxiety) levalbuterol HCl 1.25 mg/3 mL solution for nebulization 1.25 mg inhalation Q4H PRN (Reason: wheezing) albuterol sulfate 90 mcg/actuation HFA aerosol inhaler 2 puff inhalation Q4H PRN (Reason: wheezing) buspirone 15 mg tablet 15 mg PO DAILY methadone [Methadose] 10 mg/mL Concentrate 40 mg PO DAILY rizatriptan 10 mg tablet 10 mg PO QD-BID PRN (Reason: migraine) doxepin 75 mg capsule 75 mg PO BID hydroxychloroquine 200 mg tablet 400 mg PO DAILY fluticasone propionate 50 mcg/actuation spray,suspension 1 spray intranasal DAILY loratadine 10 mg tablet 10 mg PO DAILY cholecalciferol (vitamin D3) 50 mcg (2,000 unit) capsule 50 mcg PO DAILY levothyroxine [Synthroid] 100 mcg Tablet 100 mcg PO DAILY@0600 Qty: 0 0RF Interventions: [place]-Suicide Risk Severity Scale Last Done: 04/03/24 23:30 Print Language: Wallisian
--- NOTE | 2024-04-04 01:36 | PC.NURSE ---
Pt upset she isn't getting medications she is requesting, Pt attempting to walk out, Pt redirected. Pt section [address] Black.
[2024-04-04 01:44] LABS: MANUAL DIFF FLAG NO
[2024-04-04 01:45] LABS: Basophils Absolute Auto 0.1 X10*3/uL (0.0-0.2); Basophils Percent Auto 0.9 % (0-2); Eosinophils Absolute Auto 0.1 X10*3/uL (0.0-0.4); Eosinophils Percent Auto 0.6 % (0-4); Hematocrit 31.9 % (37.0-47.0); Hemoglobin 10.9 g/dl (12.0-16.0); Imm Gran Abs Auto 0.02 X10*3/uL (0.00-0.03); Imm Gran Pct Auto 0.3 % (0.0-0.4); Lymphocytes Absolute Auto 2.4 X10*3/uL (1.2-4.9); Lymphocytes Percent Auto 30.1 % (20-40); Mean Corpuscular HGB Conc 34.2 g/dl (31.0-35.0); Mean Corpuscular Hemoglobin 31.2 pg (27.0-33.0); Mean Corpuscular Volume 91.4 fL (80.0-98.0); Mean Platelet Volume 9.9 fL (9.4-12.3); Monocytes Absolute Auto 0.6 X10*3/uL (0.1-1.2); Monocytes Percent Auto 8.2 % (2-11); Neutrophils Absolute Auto 4.7 x10*3/uL (2.0-8.3); Neutrophils Percent Auto 59.9 % (45-73); Platelet Count 278 X10*3/uL (160-400); Red Blood Count 3.49 X10*6/uL (4.20-5.50); Red Cell Distribution Width 13.2 % (11.0-16.0); White Blood Count 7.8 X10*3/uL (4.8-10.8)
[2024-04-04 01:46] LABS: Appearance Urine Cloudy; Color Urine Dark Yellow; Glucose Urine UA Negative (Negative); Leukocyte Esterase Urine Trace (Negative); Nitrite Urine Negative (Negative); Specific Gravity - Urine >= 1.030 (1.005-1.025); UMIC TRIGGER UACC YES; Urine Blood Large (3+) (Negative); Urine Ketones 15 mg/dL (Negative); Urine Protein 30 (1+) mg/dL (Neg-Trace)
--- NOTE | 2024-04-04 01:48 | PC.NURSE ---
Pt refused medication ordered by provider. Pt attempting to leave, provider made aware. 1:1 sitter at bedside.
[2024-04-04 01:51] LABS: Bacteria Urine 4+ (None Seen); RBC Urine >20 /HPF (0-2); Squamous Epithelial Cell Urine >20 /HPF (0-2); WBC Urine 0-5 /HPF (0-5)
[2024-04-04 01:58] LABS: Amphetamine Screen Urine Not Detected (Not Detect); Barbiturates, Urine Not Detected (Not Detect); Benzodiazepines Screen Urine Not Detected (Not Detect); Buprenorphine Scr Not Detected (Not Detect); Cannabinoid Screen Urine Not Detected (Not Detect); Cocaine Screen Urine POSITIVE (Not Detect); Fentanyl, urine POSITIVE (Not Detect); Methadone Screen, Urine Positive (Not Detect); Opiate Screen Urine POSITIVE (Not Detect); Oxycodone Screen Urine Not Detected (Not Detect); Phencyclidine Screen Urine Not Detected (Not Detect)
[2024-04-04 02:00] LABS: Ethanol < 10 mg/dL
[2024-04-04 02:05] LABS: COVID-19 Test Negative (Negative); IDNOW Serial# 152EDE1D
[2024-04-04 02:06] LABS: Alanine Aminotransferase 27 U/L (0-31); Albumin Level 3.7 g/dL (3.5-5.0); Alkaline Phosphatase 54 U/L (39-117); Anion Gap 12 (12-20); Aspartate Amino Transferase 27 U/L (5-31); Bilirubin Total 0.5 mg/dL (0.0-1.0); Blood Urea Nitrogen 16 mg/dL (9-16); Calcium 9.1 mg/dL (8.4-10.2); Carbon Dioxide 28 mmol/L (22-29); Chloride 105 mmol/L (96-108); Creatinine Clr Calc Pharmacy 80.6; Estimated Glomerular Filt Rate > 60; Glucose Random 95 mg/dL (60-115); HCG Quantitative < 2 mIU/mL; Magnesium 2.4 mg/dL (1.6-2.6); Potassium 3.7 mmol/L (3.3-5.1); Sodium 141 mmol/L (135-145)
[2024-04-04] MEDS: clonazePAM 1 MG TABLET 2 MG PO ×2 (04:18→16:26)
--- NOTE | 2024-04-04 04:19 | PC.NURSE ---
Pt requesting meds, Pt medicated per MAR.
[2024-04-04 04:22] VITALS: BP 131/74; PULSE 98; RESP 18; TEMP 36.3; O2SAT 100
[2024-04-04 07:07] VITALS: BP 141/86; PULSE 62; RESP 14; TEMP 36.6; O2SAT 98
--- NOTE | 2024-04-04 09:41 | HE.PHANOTE ---
RE METHADONE Pharmacy has recieved patients methadone verification form. Patient gets dosed with 70 mg at [facility] [phone], last dose 04/02/24
[2024-04-04] MEDS: methADONE HCl 20 MG/2 ML ORAL.CONC 70 MG PO (09:53)
--- NOTE | 2024-04-04 09:55 | PC.NURSE ---
patient methadone dose verified with Radha MCDOWELL at [facility] 70mg last dosed at 04/02/2024 at 0617. patient medicated per MAR
[2024-04-04 12:46] VITALS: BP 119/72; PULSE 98; RESP 17; TEMP 36.2; O2SAT 98
--- NOTE | 2024-04-04 12:47 | PC.NURSE ---
patient methadone dose is 70mg, patient dosed with 130mg, provider milton aware. patient is alert and oriented x3, VSS and charted.
[2024-04-04] MEDS: Hydroxychloroquine Sulfate 200 MG TABLET 400 MG PO (16:26)
[2024-04-04] MEDS: Cholecalciferol (Vitamin D3) 25 MCG TABLET 50 MCG PO (16:26)
[2024-04-04] MEDS: busPIRone HCl 5 MG TABLET 15 MG PO (16:26)
[2024-04-04] MEDS: Loratadine 10 MG TABLET PO (16:26)
[2024-04-04] MEDS: Levothyroxine Sodium 100 MCG TABLET PO (16:27)
--- NOTE | 2024-04-04 16:58 | PC.NURSE ---
patient cleared by provider to leave, patient given back belongings
== END 2024-04-04 17:17 | disposition home or self-care (01) ==
PROVIDERS: Emergency Provider Internal Medicine
DX: F31.9 Bipolar disorder, unspecified (principal); F43.10 Post-traumatic stress disorder, unspecified; R45.851 Suicidal ideations; Z11.52 Encounter for screening for COVID-19
CPT/HCPCS: 36415; 80053; 80307; 81001; 83735; 84702; 85025; 87635; 99284

== ENCOUNTER 2024-05-15 03:34 | Emergency (ER) | payer MEDICARE, MEDICAID, SELFPAY ==
[2024-05-15 03:46] VITALS: BMI 21.3
--- NOTE | 2024-05-15 03:55 | ED_ITS ---
HPI - Psych General Chief Complaint: ETOH/Substance Use Stated Complaint: anxiety Time Seen by Provider: 05/15/24 03:54 Source: patient Mode of arrival: EMS Limitations: no limitations History of Present Illness ED Provider: roselia FREY Narrative: Patient's anxiety was upset with her roommate called police who brought her here as an option to be evaluated to go to custody patient denies any SI or any substance abuse patient says she is overwhelmed and feels safe to go home Related Data Home Medications ?Medication ?Instructions ?Recorded ?Confirmed albuterol sulfate 90 mcg/actuation 2 puff inhalation Q4H PRN wheezing 03/21/24 04/04/24 aerosol inhaler buspirone 15 mg tablet 15 mg PO DAILY 03/21/24 04/04/24 cholecalciferol (vitamin D3) 50 50 mcg PO DAILY 03/21/24 04/04/24 mcg (2,000 unit) capsule clonazepam 2 mg tablet 2 mg PO TID PRN Anxiety 03/21/24 04/04/24 doxepin 75 mg capsule 75 mg PO BID 03/21/24 04/04/24 fluticasone propionate 50 1 spray intranasal DAILY 03/21/24 04/04/24 mcg/actuation nasal spray,suspension hydroxychloroquine 200 mg tablet 400 mg PO DAILY 03/21/24 04/04/24 levalbuterol HCl 1.25 mg/3 mL 1.25 mg inhalation Q4H PRN wheezing 03/21/24 04/04/24 solution for nebulization loratadine 10 mg tablet 10 mg PO DAILY 03/21/24 04/04/24 methadone 10 mg/mL oral 70 mg PO DAILY 03/21/24 04/04/24 concentrate (Methadose) rizatriptan 10 mg tablet 10 mg PO DAILY PRN migraine 03/21/24 04/04/24 fluoxetine 10 mg capsule 10 mg PO QAM 04/04/24 04/04/24 fluoxetine 20 mg capsule 20 mg PO QAM 04/04/24 04/04/24 folic acid 1 mg tablet 1 mg PO DAILY 04/04/24 04/04/24 Previous Rx's ?Medication ?Instructions ?Recorded levothyroxine 100 mcg tablet 100 mcg PO DAILY@0600 #0 tabs 03/23/24 (Synthroid) albuterol sulfate 90 mcg/actuation 2 puff inhalation Q4-6H PRN 04/04/24 aerosol inhaler (ProAir HFA) shortness of breath or wheezing #8.5 grams buspirone 15 mg tablet 15 mg PO DAILY #30 tabs 04/04/24 clonazepam 2 mg tablet 2 mg PO TID PRN anxiety #90 tabs 04/04/24 doxepin 75 mg capsule 75 mg PO BID #60 caps 04/04/24 hydroxychloroquine 400 mg tablet 400 mg PO DAILY #30 tabs 04/04/24 levothyroxine 100 mcg capsule 100 mcg PO DAILY #30 caps 04/04/24 methadone 10 mg/mL oral 40 mg (4 mL) PO DAILY #4 mL 04/04/24 concentrate (Methadose) rizatriptan 10 mg tablet See Rx Instructions PO .COMPLEX 04/04/24 #20 tabs Allergies Allergy/AdvReac Type Severity Reaction Status Date / Time hydrocodone [From VICODIN] Allergy Unknown HIVES Verified 05/15/24 03:53 midazolam [From VERSED] Allergy Unknown AGGRESSION Verified 05/15/24 03:53 rofecoxib [From VIOXX] Allergy Unknown HIVES Verified 05/15/24 03:53 sulfamethoxazole Allergy Unknown UNKNOWN Verified 05/15/24 03:53 [From BACTRIM] trimethoprim [From BACTRIM] Allergy Unknown UNKNOWN Verified 05/15/24 03:53 ibuprofen Allergy Vomiting Verified 05/15/24 03:53 Peanut Butter Allergy Facial Verified 05/15/24 03:53 Swelling bactrim Allergy Unknown Rash Uncoded 05/15/24 03:53 doxycycline Allergy Unknown Rash Uncoded 05/15/24 03:53 vicodin Allergy Unknown Anxiety Uncoded 05/15/24 03:53 viox Allergy Unknown Rash Uncoded 05/15/24 03:53 Review of Systems Review of Systems: Yes all other systems are reviewed and are negative PMFSH Past Medical History Medical History Antisocial personality disorder Cocaine use disorder Opioid use disorder PTSD (post-traumatic stress disorder) Bipolar 1 disorder UTI (urinary tract infection) Migraines Lupus Anxiety Surgical History History of pubovaginal sling Social History Social History Household Members: None Housing: Apartment Do you presently have visiting nurse or other home services: No Unable to assess alcohol history related to: Refusing to respond Alcohol intake: never Patient Tobacco Use Status: Current everyday Tobacco user Tobacco use type: Cigarette Cigarette Packs Per Day: 2 Cigarettes Per Day: 40.0 Years Smoked: 7 years then quit for 19 years and restarted 9 months ago Smoked in Last 30 Days: No Second Hand Smoke Exposure: Yes Use of substances other than those prescribed or required for medical reasons: No Substance Use Type: Crack/Cocaine and Heroin Advance Directives: No Advance Directives Information Provided: No Do you have a plan to hurt others: No Plan Patient : No Physical Exam Vital Signs: Vital Signs: Last Vital Signs Temp 98.3 F 05/15/24 04:02 Pulse 92 05/15/24 04:02 Resp 20 05/15/24 04:02 BP 149/104 H 05/15/24 04:02 Pulse Ox 95 05/15/24 04:02 O2 Del Method Room Air 05/15/24 04:02 BMI result Body Mass Index 21.3 Appearance: Alert. Oriented X3. No acute distress. Anxious Eyes: PERRLA, No Nystagmus ENT: Pharynx normal. Oral Mucosa moist Neck: Normal inspection. Neck supple. CVS: Normal heart rate and rhythm. Pulses normal. Respiratory: No respiratory distress. Equal air entry bilateral, no wheezing /rales/rhonchi Abdomen: Soft and nontender. Bowel sounds are present, no mass palpable, no CVA tenderness Skin: Skin warm and dry. Normal skin color. Normal skin turgor. Extremities: No lower extremity edema. No calf tenderness Neuro: Oriented X 3. No motor deficit. No sensory deficit.No cerebellar signs , cranial nerves II-XII intact Medical Decision Making Medical Decision Making MDM Narrative: Patient's anxiety feels safe to go home will discharge patient home Discharge Plan Discharge Clinical Impression: Anxiety Patient Disposition: Home, Self-Care Instructions: Anxiety (ED) Additional Instructions: Rest at home Take medication as prescribed by your psychiatrist Prescriptions: No Action clonazepam 2 mg tablet 2 mg PO TID PRN (Reason: Anxiety) levalbuterol HCl 1.25 mg/3 mL solution for nebulization 1.25 mg inhalation Q4H PRN (Reason: wheezing) albuterol sulfate 90 mcg/actuation HFA aerosol inhaler 2 puff inhalation Q4H PRN (Reason: wheezing) buspirone 15 mg tablet 15 mg PO DAILY methadone [Methadose] 10 mg/mL Concentrate 70 mg PO DAILY rizatriptan 10 mg tablet 10 mg PO DAILY PRN (Reason: migraine) Rx Instructions: MRX1 after 2 hours if needed doxepin 75 mg capsule 75 mg PO BID hydroxychloroquine 200 mg tablet 400 mg PO DAILY fluticasone propionate 50 mcg/actuation spray,suspension 1 spray intranasal DAILY loratadine 10 mg tablet 10 mg PO DAILY cholecalciferol (vitamin D3) 50 mcg (2,000 unit) capsule 50 mcg PO DAILY levothyroxine [Synthroid] 100 mcg Tablet 100 mcg PO DAILY@0600 Qty: 0 0RF fluoxetine 10 mg capsule 10 mg PO QAM folic acid 1 mg tablet 1 mg PO DAILY fluoxetine 20 mg capsule 20 mg PO QAM buspirone 15 mg tablet 15 mg PO DAILY Qty: 30 0RF clonazepam 2 mg tablet 2 mg PO TID PRN (Reason: anxiety) Qty: 90 0RF doxepin 75 mg capsule 75 mg PO BID Qty: 60 0RF hydroxychloroquine 400 mg tablet 400 mg PO DAILY Qty: 30 0RF rizatriptan 10 mg tablet See Rx Instructions .ROUTE .COMPLEX Qty: 20 0RF Rx Instructions: take 1 tab at onset of headache; if no relief may repeat 1 tab after at least 2 hrs; max = 3 tabs/24 hr levothyroxine 100 mcg capsule 100 mcg PO DAILY Qty: 30 0RF albuterol sulfate [ProAir HFA] 90 mcg/actuation HFA aerosol inhaler 2 puff inhalation Q4-6H PRN (Reason: shortness of breath or wheezing) Qty: 8.5 0RF methadone [Methadose] 10 mg/mL concentrate 40 mg PO DAILY Qty: 4 0RF Rx Instructions: Partial Fill upon patient request. Interventions: ED Discharge Assessment Last Done: 05/15/24 04:02 Discharge Date/Time: 05/15/24 04:02 Print Language: French
[2024-05-15 03:56] VITALS: BP 149/104; PULSE 92; RESP 20; TEMP 36.8; O2SAT 95
--- NOTE | 2024-05-15 03:56 | PC.NURSE ---
pt biba from home a&ox4, respirations even and unlabored. per ems pt room mates state pt has not slept in 5 days, reports pt is off anxiety medications and using drugs. on arrival pt angry, yelling, and refusing vitals. called to bedside and called to bedside. pt states she feels safe at home and would like to leave. pt ambulatory with steady gait. pt allowed d/c vitals, system updated. pt denies etoh and drug use at this time. walked out with pt.
[2024-05-15 04:02] VITALS: BP 149/104; PULSE 92; RESP 20; TEMP 36.8; O2SAT 95
== END 2024-05-15 04:02 | disposition home or self-care (01) ==
PROVIDERS: Emergency Provider Internal Medicine
DX: F41.9 Anxiety disorder, unspecified (principal); F17.210 Nicotine dependence, cigarettes, uncomplicated; Z79.899 Other long term (current) drug therapy
CPT/HCPCS: 99282; 99284

== ENCOUNTER 2025-04-05 01:20 | Emergency (ER) | payer MEDICARE, MEDICAID, SELFPAY ==
[2025-04-05 01:23] VITALS: BP 162/109; PULSE 102; RESP 20; TEMP 36.9; O2SAT 100; BMI 27.5
--- NOTE | 2025-04-05 01:30 | PC.NURSE ---
patient does not want any information given to be given if anyone calls.
--- NOTE | 2025-04-05 01:50 | PC.NURSE ---
patient was seen walking towards exit and then on camera walking out the ED lobby door. this RN and patients primary RN went to see if we could see patient outside but she was not there.
== END 2025-04-05 02:12 | disposition left against medical advice (07) ==
LOC: HO.ED 02:09
PROVIDERS: Emergency Provider Emergency Medicine
DX: K62.5 Hemorrhage of anus and rectum (principal); Z59.00 Homelessness unspecified
CPT/HCPCS: 99281

== ENCOUNTER 2025-04-16 17:48 | Emergency (ER) | payer MEDICARE, MEDICAID, SELFPAY ==
[2025-04-16 18:11] VITALS: BP 146/95; PULSE 94; RESP 18; TEMP 36.7; O2SAT 98
[2025-04-16 18:20] VITALS: BP 157/117; PULSE 100; O2SAT 100; BMI 26.6
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
--- NOTE | 2025-04-16 19:17 | PC.NURSE ---
RILEY contacted and advocate requested. NEMO ARANA previously called back to make this RN aware that they would be coming out shortly
[2025-04-16 19:36] LABS: UPreg QC Valid YES; Urine Pregnancy NEGATIVE (NEGATIVE)
--- NOTE | 2025-04-16 19:53 | PC.NURSE ---
pt noted to be walking down the hallway attempting to exit the hospital. per Ramu santana, pt is okay to leave. encouraged pt to stay at this time to receive medications but pt declined. ramu santana and furnace charger aware.
[2025-04-16 19:57] LABS: Alanine Aminotransferase 40 U/L (0-31); Aspartate Amino Transferase 49 U/L (5-31); Creatinine Clr Calc Pharmacy 81.4; Estimated Glomerular Filt Rate > 60; HCG Quantitative < 2 mIU/mL
--- NOTE | 2025-04-16 20:03 | PC.NURSE ---
this rn, charge account authorizer and provider encouraged pt to come back if anything was to change and she would like treatment
[2025-04-17 09:11] LABS: CT PCR NOT DETECTED (Not Detect.); NG PCR NOT DETECTED (Not Detect.)
[2025-04-18 07:59] LABS: HBS Num1 689.37 mIU/mL (0-7.99); HBsAGNum1 0.34 S/CO (0.00-0.99); HIV AB/AG Nonreactive (Nonreactive); HIV Num 1 0.07 S/CO (0.00-0.99); Hepatitis B Surface Antigen Negative (Negative); ~HepC Num1 0.14 S/CO (0.00-0.79); ~Hepatitis B Surface Antibody REACTIVE (Nonreactive); ~Hepatitis C Antibody Nonreactive (Nonreactive)
[2025-04-18 08:02] LABS: Syphilis Screen Nonreactive (Nonreactive)
== END 2025-04-16 20:25 | disposition left against medical advice (07) ==
PROVIDERS: Physician Assistant Medical; Emergency Provider Emergency Medicine; PCP Internal Medicine
DX: T76.21XA Adult sexual abuse, suspected, initial encounter (principal); X58.XXXA Exposure to other specified factors, initial encounter; Y92.9 Unspecified place or not applicable; Y93.9 Activity, unspecified; Y99.9 Unspecified external cause status; F19.10 Other psychoactive substance abuse, uncomplicated; R10.9 Unspecified abdominal pain; Z53.29 Procedure and treatment not carried out because of patient's decision for other reasons
CPT/HCPCS: 36415; 81025; 82565; 84450; 84460; 84702; 86706; 86780; 86803; 87340; 87389; 87491; 87591; 99283; 99284

== ENCOUNTER 2025-05-13 09:49 | Emergency (ER) | payer MEDICARE, MEDICAID, SELFPAY ==
[2025-05-13 09:51] VITALS: BP 174/110; PULSE 87; RESP 20; TEMP 37; O2SAT 97; BMI 28.3
--- NOTE | 2025-05-13 10:20 | PC.NURSE ---
this RN talked with pt in triage, she has been here before and knows the process of our POD and change management manager. PT was in agrement but then stated she wanted to just leave an wait for the crisis team to call her back to get her directly admitted to [facility]. This RN and Charge talked with pt, she continues to deny SI/HI, pt was going to talk with friend before deciding to come in or leave and wait for crissis. Staff did explain it is a holiday and weekend and generally they will still need her to be medically cleared before she can go and would still need to come back and go through this process and there is a chance if she leaves that it could delay. Pt understands, at this time awaiting for pt to let us know if she wants to stay or leave. This RN asked pt to let staff know so we can take her off the board or keep her on. Almita nurse evaristo
--- NOTE | 2025-05-13 11:02 | PC.NURSE ---
[place] scale completed based on conversation with the patient in triage to be able to discharge chart
== END 2025-05-13 11:06 | disposition left against medical advice (07) ==
PROVIDERS: Emergency Provider Emergency Medicine; PCP Internal Medicine
DX: Z04.9 Encounter for examination and observation for unspecified reason (principal)
CPT/HCPCS: 99281; 99283

== ENCOUNTER 2025-10-02 06:25 | Emergency (ER) | payer OTHER, SELFPAY ==
--- NOTE | 2025-10-02 | ECG_ITS ---
Test Reason : DIZZINESS Blood Pressure : */* mmHG Vent. Rate : 66 BPM Atrial Rate : 66 BPM P-R Int : 158 ms QRS Dur : 90 ms QT Int : 430 ms P-R-T Axes : 60 45 38 degrees QTcB Int : 450 ms Normal sinus rhythm Normal ECG When compared with ECG of 21-Mar-2024 15:12, No significant change was found Referred By: Generic ED Physician Electronically Signed By: HYACINTH QUICK
[2025-10-02 06:35] VITALS: BP 112/64; BP 171/91; PULSE 107; PULSE 74; RESP 20; TEMP 36.7; O2SAT 98; BMI 24.0
--- NOTE | 2025-10-02 06:44 | PC.NURSE ---
Ekg , labs, us ordered. changed into hospital attire, placed on bed side EKg
--- NOTE | 2025-10-02 06:51 | ED.GENADULT ---
HPI - General Adult General Chief complaint: General Medical Stated complaint: dizziness for 1 hour, FAST score: 0 Time Seen by Provider: 10/02/25 06:51 Source: patient Mode of arrival: EMS Limitations: no limitations History of Present Illness ED Provider: Dr. Pablo Norman HPI narrative: 45-year-old female with a history of lupus, seizures, bipolar disorder, PTSD, opiate use, cocaine use who presents emergency department for evaluation of dizziness, fall, and heavy menses. Patient states that she is homeless unusually walks all night and sleeps during the day. She states that 2 days prior she started her menstrual period. She states that her menses was heavier than usual. Her last menstrual period was also heavier than usual. She states that she soaked through her clothes, she felt lightheaded and dizzy and then fell. She then went to a convenience store and asked for help. She was then brought to emergency department by ambulance. She states that she in his not been eating well. She does admit to using crack cocaine last night. She denies opiate use. At the time my evaluation, the patient has no complaints. Related Data Home Medications ?Medication ?Instructions ?Recorded ?Confirmed albuterol sulfate 90 mcg/actuation 2 puff inhalation Q4H PRN wheezing 03/21/24 04/04/24 aerosol inhaler buspirone 15 mg tablet 15 mg PO DAILY 03/21/24 04/04/24 cholecalciferol (vitamin D3) 50 50 mcg PO DAILY 03/21/24 04/04/24 mcg (2,000 unit) capsule clonazepam 2 mg tablet 2 mg PO TID PRN Anxiety 03/21/24 04/04/24 doxepin 75 mg capsule 75 mg PO BID 03/21/24 04/04/24 fluticasone propionate 50 1 spray intranasal DAILY 03/21/24 04/04/24 mcg/actuation nasal spray,suspension hydroxychloroquine 200 mg tablet 400 mg PO DAILY 03/21/24 04/04/24 levalbuterol HCl 1.25 mg/3 mL 1.25 mg inhalation Q4H PRN wheezing 03/21/24 04/04/24 solution for nebulization loratadine 10 mg tablet 10 mg PO DAILY 03/21/24 04/04/24 methadone 10 mg/mL oral 70 mg PO DAILY 03/21/24 04/04/24 concentrate (Methadose) rizatriptan 10 mg tablet 10 mg PO DAILY PRN migraine 03/21/24 04/04/24 fluoxetine 10 mg capsule 10 mg PO QAM 04/04/24 04/04/24 fluoxetine 20 mg capsule 20 mg PO QAM 04/04/24 04/04/24 folic acid 1 mg tablet 1 mg PO DAILY 04/04/24 04/04/24 Previous Rx's ?Medication ?Instructions ?Recorded levothyroxine 100 mcg tablet 100 mcg PO DAILY@0600 #0 tabs 03/23/24 (Synthroid) albuterol sulfate 90 mcg/actuation 2 puff inhalation Q4-6H PRN 04/04/24 aerosol inhaler (ProAir HFA) shortness of breath or wheezing #8.5 grams buspirone 15 mg tablet 15 mg PO DAILY #30 tabs 04/04/24 clonazepam 2 mg tablet 2 mg PO TID PRN anxiety #90 tabs 04/04/24 doxepin 75 mg capsule 75 mg PO BID #60 caps 04/04/24 hydroxychloroquine 400 mg tablet 400 mg PO DAILY #30 tabs 04/04/24 levothyroxine 100 mcg capsule 100 mcg PO DAILY #30 caps 04/04/24 methadone 10 mg/mL oral 40 mg (4 mL) PO DAILY #4 mL 04/04/24 concentrate (Methadose) rizatriptan 10 mg tablet See Rx Instructions PO .COMPLEX 04/04/24 #20 tabs potassium chloride 20 mEq 20 meq PO DAILY 2 weeks #14 tabs 10/02/25 tablet,extended release (K-Tab) Allergies Allergy/AdvReac Type Severity Reaction Status Date / Time hydrocodone (From VICODIN) Allergy Unknown HIVES Verified 10/02/25 06:39 midazolam (From VERSED) Allergy Unknown AGGRESSION Verified 10/02/25 06:39 rofecoxib (From VIOXX) Allergy Unknown HIVES Verified 10/02/25 06:39 sulfamethoxazole (From Allergy Unknown UNKNOWN Verified 10/02/25 06:39 BACTRIM) trimethoprim (From BACTRIM) Allergy Unknown UNKNOWN Verified 10/02/25 06:39 ibuprofen Allergy Vomiting Verified 10/02/25 06:39 Peanut Butter Allergy Facial Verified 10/02/25 06:39 Swelling bactrim Allergy Unknown Rash Uncoded 05/13/25 09:55 doxycycline Allergy Unknown Rash Uncoded 05/13/25 09:55 vicodin Allergy Unknown Anxiety Uncoded 05/13/25 09:55 viox Allergy Unknown Rash Uncoded 05/13/25 09:55 Review of Systems Review of Systems: Yes all other systems are reviewed and are negative [facility] Past Medical History [facility] Narrative: Social history: She is homeless. She states she sleeps in hallways. She does smoke cigarettes. She denies alcohol use. She occasionally uses crack cocaine and did use crack cocaine last night. Medical History Antisocial personality disorder Cocaine use disorder Opioid use disorder PTSD (post-traumatic stress disorder) Bipolar 1 disorder UTI (urinary tract infection) Migraines Lupus Anxiety Surgical History History of pubovaginal sling Social History Social History Household Members: None Housing: Apartment Do you presently have visiting nurse or other home services: No Alcohol intake: never Patient Tobacco Use Status: Current everyday Tobacco user Tobacco use type: Cigarette Cigarette Packs Per Day: 2 Cigarettes Per Day: 40.0 Years Smoked: 7 years then quit for 19 years and restarted 9 months ago Smoked in Last 30 Days: Yes Second Hand Smoke Exposure: Yes Use of substances other than those prescribed or required for medical reasons: No Substance Use Type: Crack/Cocaine Substance Use Frequency: Weekly Advance Directives: No Advance Directives Information Provided: Yes Do you have a plan to hurt others: No Plan Patient : No Physical Exam ED Vital Signs: Vital Signs - 24 hr 10/02/25 06:35 10/02/25 10:01 Temperature 98.1 F 98.1 F Pulse Rate 74 74 Respiratory Rate 20 20 Blood Pressure 171/91 H 171/91 H Pulse Oximetry 98 98 Oxygen Delivery Method Room Air Room Air BMI result Body Mass Index 24.0 Vital signs revealed an elevated blood pressure of 171/91 otherwise unremarkable Exam: General: Awake, alert in no distress Head: Normocephalic, atraumatic EENT: PERRL, sclera and conjunctiva are normal, mouth with no erythema or exudates Neck: Supple, no adenopathy Lung: breath sounds symmetric, no wheezing, no rales and no rhonchi Chest: symmetric movement, nontender Heart: regular rate and rhythm, normal S1, S2 no murmurs or rubs Abdomen: soft, non-tender, nondistended, normal bowel sounds Back: no vertebral tenderness, no CVAT Extremities: no deformities, moves all extremities symmetrically, no edema Neuro: Awake, alert, oriented, normal speech, cranial nerves 2-12 intact, moves all extremities symmetrically Psych: Pleasant, cooperative Medications Administered Discontinued Medications Generic Name Dose Route Start Last Admin Trade Name Lori PRN Reason Stop Dose Admin Naloxone HCl 8 mg 10/02/25 09:46 10/02/25 09:53 Naloxone Hcl Nasal Take Home 4 Mg [place] NOSTRILALT 10/02/25 09:47 8 mg ONCE ONE Administration Potassium Chloride 20 meq 10/02/25 09:35 10/02/25 09:53 Potassium Chloride Er 20 Meq Tab.Er.Prt PO 10/02/25 09:36 20 meq ONCE ONE Administration Medical Decision Making Medical Decision Making MDM Narrative: 45-year-old female with a history of lupus, seizures, bipolar disorder, PTSD, opiate use, cocaine use who presents emergency department for evaluation of dizziness, fall, and heavy menses. Patient states that she is homeless unusually walks all night and sleeps during the day. She states that 2 days prior she started her menstrual period. She states that her menses was heavier than usual. Her last menstrual period was also heavier than usual. She states that she soaked through her clothes, she felt lightheaded and dizzy and then fell. She then went to a convenience store and asked for help. She was then brought to emergency department by ambulance. She states that she in his not been eating well. She does admit to using crack cocaine last night. She denies opiate use. At the time my evaluation, the patient has no complaints. Vital signs revealed elevated blood pressure otherwise unremarkable. Physical examination was unremarkable. Differential diagnosis: ?Includes but is not limited to menorrhagia secondary to menopause, menstrual period, anemia, electrolyte abnormalities Course: My independent interpretation patient's laboratory evaluation is as follows: CBC was normal with a an H&H of 12.1 and 36.2. Potassium was low 2.9-most likely secondary to malnutrition. BUN elevated 20 with a normal creatinine of 0.74-related to volume depletion. Troponin was below detectable limits. Patient was given food to eat here in the emergency department. She was also given potassium ER 20 mEq orally. She was prescribed potassium ER 20 mEq daily for 2 weeks. I did discuss her menorrhagia with her and I suspect that she has a early menopause. The patient was advised to follow up with her finger lift operator for re-evaluation. She was given printed and verbal instructions and discharged home. The patient is not interested in talking to our recovery counselor regarding her cocaine use disorder. And I did tell her that cocaine can be contaminated with other drugs such as fentanyl. She was discharged home with a intranasal Narcan home dispense kit. Differential Diagnosis Differential Diagnoses: The differential diagnosis associated with the presentation includes (See above) Admission/Observation Consideration of admission/observation: Escalation of care including admission/observation considered (Yes) Lab Data MDM Lab Attestation statement: I reviewed the patient's lab results. 10/02/25 07:06 10/02/25 07:06 Labs: Lab Results 10/02/25 Range/Units 07:06 WBC 7.7 (4.8-10.8) X10*3/uL RBC 3.94 L (4.20-5.50) X10*6/uL Hgb 12.1 (12.0-16.0) g/dl Hct 36.2 L (37.0-47.0) % MCV 91.9 (80.0-98.0) fL MCH 30.7 (27.0-33.0) pg MCHC 33.4 (31.0-35.0) g/dl RDW 13.9 (11.0-16.0) % Plt Count 313 (160-400) X10*3/uL MPV 9.9 (9.4-12.3) fL Immature Gran % (Auto) 0.4 (0.0-0.4) % Neut % (Auto) 74.9 H (45-73) % Lymph % (Auto) 16.8 L (20-40) % [place] % (Auto) 6.1 (2-11) % Eos % (Auto) 0.6 (0-4) % Baso % (Auto) 1.2 (0-2) % Lymph # (Auto) 1.3 (1.2-4.9) X10*3/uL [place] # (Auto) 0.5 (0.1-1.2) X10*3/uL Eos # (Auto) 0.1 (0.0-0.4) X10*3/uL Baso # (Auto) 0.1 (0.0-0.2) X10*3/uL Abs Immat Gran (auto) 0.03 (0.00-0.03) X10*3/uL Absolute Neuts (auto) 5.8 (2.0-8.3) x10*3/uL Absolute Nucleated RBC 0.000 (0.0-0.012) X10*3/uL Nucleated RBC % (auto) 0.0 (0.0-0.2) /100WBC Sodium 141 (135-145) mmol/L Potassium 2.9 L* D (3.3-5.1) mmol/L Chloride 103 (96-108) mmol/L Carbon Dioxide 28 (22-29) mmol/L Anion Gap 13 (12-20) BUN 20 H (9-16) mg/dL Creatinine 0.74 (0.5-1.4) mg/dL Estim Creat Clear Calc 82.9 Estimated GFR > 60 Random Glucose 89 (60-115) mg/dL Calcium 8.9 (8.4-10.2) mg/dL Total Bilirubin 0.7 (0.0-1.0) mg/dL AST 43 H (5-31) U/L ALT 26 (0-31) U/L Alkaline Phosphatase 56 (39-117) U/L Troponin I High Sens < 2.7 (<3.5-17.0) ng/L Total Protein 7.2 (6.5-8.0) g/dL Albumin 4.6 (3.5-5.0) g/dL Independent Interpretation I performed an independent interpretation of an: EKG Interpretation: My independent interpretation patient's 12 EKG done on 10/02/2025 at 06:42 hours is as follows: Normal sinus rhythm rate of 66, normal [place] interval, QRS duration QTC interval, no ST segment elevation, ST segment depression, inverted T-waves V1 and V2, no PACs, no PVCs compared to EKG dated Mar 21 2024, T-wave inversions in V1 and V2 were old, no significant change noted. External Record Review External record reviewed: Inpatient record Prescription Management I considered prescription management with: Other Prescribed potassium chloride ER 20 mEq daily x2 weeks Chronic Conditions Patient?s care impacted by: Other (Lupus) Discharge Plan Discharge Clinical Impression: Dizziness, Acute hypokalemia, Cocaine use disorder Fall Qualifiers: Encounter type: initial encounter Qualified Code(s): W19.XXXA - Unspecified fall, initial encounter Menorrhagia Qualifiers: Menorrhagia type: premenopausal Qualified Code(s): N92.4 - Excessive bleeding in the premenopausal period Patient Disposition: Home, Self-Care Instructions: Hypokalemia (ED), Cocaine Use Disorder (ED), Menorrhagia (ED) Additional Instructions: Your heavy menstrual period may be due to perimenopause. Your blood work today revealed that you were not anemic. Your potassium was low. This has probably due to malnutrition and not eating enough calories during the day. You were treated with potassium chloride 20 mEq orally here in the emergency department. I am prescribing potassium chloride ER 20 mEq once a day for 2 weeks to help keep your potassium up. Continue taking your medications as prescribed by your providers. Follow-up with your doctor in 2 days. Please return to the emergency department if your symptoms get worse or if you develop any symptoms that are concerning to you. Cocaine use disorder You were seen in our Emergency Department for a fall and menstrual bleeding, but you did report using crack cocaine. Sometimes cocaine can be contaminated with opiates and fentanyl. Your are being discharged home with intranasal Narcan.If you are going to continue to use cocaine, you should make sure that there is a sober person with you that is not using drugs and that this person can administer intranasal Narcan in the event that you stop breathing. If you decide you want help to stop or cut down on how much you?re using, you can call or walk into our outpatient Addiction Treatment office: [facility] (M-F 9am-5p) [address], [address] [phone] Prescriptions: New potassium chloride [K-Tab] 20 mEq tablet extended release 20 meq PO DAILY 14 Days Qty: 14 0RF No Action clonazepam 2 mg tablet 2 mg PO TID PRN (Reason: Anxiety) levalbuterol HCl 1.25 mg/3 mL solution for nebulization 1.25 mg inhalation Q4H PRN (Reason: wheezing) albuterol sulfate 90 mcg/actuation HFA aerosol inhaler 2 puff inhalation Q4H PRN (Reason: wheezing) buspirone 15 mg tablet 15 mg PO DAILY methadone [Methadose] 10 mg/mL Concentrate 70 mg PO DAILY rizatriptan 10 mg tablet 10 mg PO DAILY PRN (Reason: migraine) Rx Instructions: MRX1 after 2 hours if needed doxepin 75 mg capsule 75 mg PO BID hydroxychloroquine 200 mg tablet 400 mg PO DAILY fluticasone propionate 50 mcg/actuation spray,suspension 1 spray intranasal DAILY loratadine 10 mg tablet 10 mg PO DAILY cholecalciferol (vitamin D3) 50 mcg (2,000 unit) capsule 50 mcg PO DAILY levothyroxine [Synthroid] 100 mcg Tablet 100 mcg PO DAILY@0600 Qty: 0 0RF fluoxetine 10 mg capsule 10 mg PO QAM folic acid 1 mg tablet 1 mg PO DAILY fluoxetine 20 mg capsule 20 mg PO QAM buspirone 15 mg tablet 15 mg PO DAILY Qty: 30 0RF clonazepam 2 mg tablet 2 mg PO TID PRN (Reason: anxiety) Qty: 90 0RF doxepin 75 mg capsule 75 mg PO BID Qty: 60 0RF hydroxychloroquine 400 mg tablet 400 mg PO DAILY Qty: 30 0RF rizatriptan 10 mg tablet See Rx Instructions .ROUTE .COMPLEX Qty: 20 0RF Rx Instructions: take 1 tab at onset of headache; if no relief may repeat 1 tab after at least 2 hrs; max = 3 tabs/24 hr levothyroxine 100 mcg capsule 100 mcg PO DAILY Qty: 30 0RF albuterol sulfate [ProAir HFA] 90 mcg/actuation HFA aerosol inhaler 2 puff inhalation Q4-6H PRN (Reason: shortness of breath or wheezing) Qty: 8.5 0RF methadone [Methadose] 10 mg/mL concentrate 40 mg PO DAILY Qty: 4 0RF Rx Instructions: Partial Fill upon patient request. Interventions: ED Discharge Assessment Last Done: 10/02/25 10:01 Discharge Date/Time: 10/02/25 10:02 Print Language: Turkmen
--- NOTE | 2025-10-02 06:53 | PC.NURSE ---
pt assisted to the bathroom.
--- NOTE | 2025-10-02 06:54 | PC.NURSE ---
report given to Sunil
[2025-10-02 07:14] LABS: MANUAL DIFF FLAG NO
[2025-10-02 07:15] LABS: Hematocrit 36.2 % (37.0-47.0); Hemoglobin 12.1 g/dl (12.0-16.0); Imm Gran Abs Auto 0.03 X10*3/uL (0.00-0.03); Imm Gran Pct Auto 0.4 % (0.0-0.4); Lymphocytes Absolute Auto 1.3 X10*3/uL (1.2-4.9); Mean Corpuscular HGB Conc 33.4 g/dl (31.0-35.0); Mean Corpuscular Hemoglobin 30.7 pg (27.0-33.0); Mean Corpuscular Volume 91.9 fL (80.0-98.0); NRBC Abs Auto 0.000 X10*3/uL (0.0-0.012); NRBC Pct Auto 0.0 /100WBC (0.0-0.2); Platelet Count 313 X10*3/uL (160-400); Red Blood Count 3.94 X10*6/uL (4.20-5.50); White Blood Count 7.7 X10*3/uL (4.8-10.8)
[2025-10-02 07:31] LABS: Alanine Aminotransferase 26 U/L (0-31); Albumin Level 4.6 g/dL (3.5-5.0); Alkaline Phosphatase 56 U/L (39-117); Anion Gap 13 (12-20); Aspartate Amino Transferase 43 U/L (5-31); Blood Urea Nitrogen 20 mg/dL (9-16); Calcium 8.9 mg/dL (8.4-10.2); Carbon Dioxide 28 mmol/L (22-29); Chloride 103 mmol/L (96-108); Creatinine Clr Calc Pharmacy 82.9; Estimated Glomerular Filt Rate > 60; Potassium 2.9 mmol/L (3.3-5.1); Sodium 141 mmol/L (135-145); Total Protein 7.2 g/dL (6.5-8.0)
[2025-10-02 07:36] LABS: Troponin-I High Sensitivity < 2.7 ng/L (<3.5-17.0)
--- OUTSIDE RECORDS SUMMARY | 2025-10-02 07:36 | XMS_ITS | Clinical Summary ---
Author Organization [facility] ity Address [address] [place] [address] Care Team Providers Care R And D Lab Technician Name Role Phone Unavailable Primary Care Provider Unavailabl e Social History Tobacco Use Types Packs/Day Years Used Date Smoking Tobacco: Never Assessed Comments Unknown Sex and Gender Information Value Date Recorded Sex Assigned at Not on file Legal Sex Female 9:04 AM EST Gender Identity Not on file Sexual Orientation Not on file Plan of Treatment Health Maintenance Due Date Last Done Comments Breast Cancer Screening 1980 DTaP,Tdap,and Td Vaccines (1 - Tdap) 1999 Hepatitis B Vaccines (1 of 3 - 19+ 3-dose series) 1999 Cervical Cancer Screening: P ap Smear 2001 HPV Vaccines (1 - 3-dose SCD M series) 2007 Depression Screening 11/10/2024 COVID-19 Vaccine ( - 2024-2 6 season) 2025 Influenza Vaccine (#1) 2025 RSV Immunization Adult Patie nts (1 - 1-dose 75+ series) 2055 HIB Vaccines Aged Out No longer eligi ble based on patient's age to complete this topic Hepatitis A Vaccines Aged Out No long er eligible based on patient's age to complete this topic IPV Vaccines Aged Out No longer eligi ble based on patient's age to complete this topic MMR Vaccines Aged Out No longer eligi ble based on patient's age to complete this topic Meningococcal ACWY Vaccine Aged Out N o longer eligible based on patient's age to complete this topic Meningococcal B Vaccine Aged Out No l onger eligible based on patient's age to complete this topic Pneumococcal Vaccine: Pediat rics (0 to 5 Years) and At-Risk Patients (6 to 49 Years) Aged Out No longer eligible b ased on patient's age to complete this topic RSV Immunization Patients Un chris 20 months Aged Out No longer eligible b ased on patient's age to complete this topic Varicella Vaccines Aged Out No longer eligible based on patient's age to complete this topic
--- OUTSIDE RECORDS SUMMARY | 2025-10-02 07:36 | XMS_ITS | Clinical Summary ---
Author Organization [employer] Address [address] [place] [address] Care Team Providers Care Post Form Remover Name Role Phone Unavailable Primary Care Provider Unavailabl e Allergies Active Allergy Reactions Criticality Noted Date Comments Acetaminophen 07/22/2018 Amoxicillin 07/22/2018 Hydrocodone 07/22/2018 Penicillin G 07/22/2018 Rofecoxib 07/22/2018 Sulfamethoxazole 07/22/2018 Trimethoprim 07/22/2018 Medications Ventolin HFA 108 (90 Base) MCG/ACT inhaler INHALE 2 PUFFS BY MOUTH EVERY 4 HOURS NEEDED FOR WHEEZE 3 Active Suboxone 8-2 MG SL film TAKE 1 FILM SUBLINGUALLY EVERY DAY 3 Active cholecalciferol (Vitamin D-3) 50 MCG (2000 UT) capsule Take by mouth in the morning. 3 Active clonazePAM (KlonoPIN) 2 MG tablet Take 2 mg by mouth if needed in the morning, at noon, and at bedtime. 3 Active cyclobenzaprine (Flexeril) 5 MG tablet Take 5 mg by mouth if needed in the morning, at noon, and at bedtime. 3 Active FLUoxetine (PROzac) 20 MG capsule TAKE 1 CAPSULE BY MOUTH EVERY DAY IN THE MORNING 3 Active fluticasone (Flonase) 50 MCG/ACT nasal spray SPRAY 1 SPRAY BY NASAL ROUTE EVERY DAY 3 Active Flovent HFA 110 MCG/ACT inhaler 2 puffs 2 times daily. 3 Active folic acid (Folvite) 1 MG tablet Take 1,000 mcg by mouth in the morning. 3 Active hydroxychloroqu ine (Plaquenil) 200 MG tablet Take 2 tablets by mouth in the morning. 3 Active levalbuterol (Xopenex) 1.25 MG/3ML nebulizer solution INHALE 3 ML'S VIA NEBULIZER EVERY 4 HOURS NEEDED FOR WHEEZING 3 Active levothyroxine (Synthroid, Levoxyl) 100 MCG tablet 3 Active loratadine (Claritin) 10 MG tablet Take 10 mg by mouth in the morning. 3 Active methotrexate 2.5 MG tablet Take 10 mg by mouth every 7 (seven) days. 3 Active naloxone (Narcan) 4 mg/0.1 mL nasal spray SPRAY 0.1 ML INTRANASALLY FOR OPIOID OVERDOSE. REPEAT IN 3 MINUTES IF NO OR MINIMAL RESPONSE 3 Active oxyCODONE (Roxicodone) 15 MG immediate release tablet take 1 tablet by oral route every 4 hours as needed for pain Active promethazine (Phenergan) 25 MG tablet 3 Active rizatriptan (Maxalt) 10 MG tablet 3 Active Active Problems No known active problems Immunizations Immunization Administration Dates Next Due INFLUENZA VACCINE QUADRIVALE NT RECOMBINANT PRESERVATIVE FREE RIV4 09/04/2020 Influenza Injectable Quadriv alant Preservative Free IIV4 MDCK 08/07/2022 Influenza injectable quadrivalent preservative f ree 11/13/2019 Moderna Covid-19 Vaccine 12+ 12/06/2022 Moderna Covid-19 Vaccine 6+ Bivalent 02/04/2023 Family History Medical History Relation Name Comments Glaucoma Maternal Grandmother Glaucoma Mother Relation Name Status Comments Maternal Grandmother Mother Social History Tobacco Use Types Packs/Day Years Used Date Smoking Tobacco: Never Smokeless Tobacco: Never Tobacco Cessation:Counseling Given: Not Answered Comments Unknown Sex and Gender Information Value Date Recorded Sex Assigned at Female 09/09/2022 10:14 AM EDT Legal Sex Female 10:14 AM EDT Gender Identity Female 09/09/2022 10:14 AM EDT Sexual Orientation Choose not to disclose 2021 10:14 AM EDT Plan of Treatment Health Maintenance Due Date Last Done Comments CT Colonography 1980 Colonoscopy 1980 Colorectal Cancer Screening 1980 Depression Screening 1980 FIT DNA/Cologuard 1980 FIT 1980 FOBT 1980 HIV Screening 1980 SDOH Screening 1980 Sigmoidoscopy 1980 Disability Screening 1980 Alcohol/Substance Use Screening 1992 Family Planning (PISQ) 1995 HPV Vaccines (1 - 3-dose series) 1995 Hepatitis C Screening 1998 DTaP/Tdap/Td Vaccines (1 - Tdap) 1999 Hepatitis B Vaccines (1 of 3 - 19+ 3-dose series) 1999 Pneumococcal Vaccine: Pediatrics (0 to 5 Years) and At-Risk Patients (6 to 49) Years (1 of 2 - PCV) 1999 Zoster Vaccines (1 of 2) 1999 Pap Smear 2001 Cervical Cancer Screening 2010 HPV/Cotest 2010 Mammogram 2020 Tobacco Screening 01/26/2024 01/25/2023 COVID-19 Vaccine (2024-2 6 season) 2025 02/04/2023, 12/06/2022, 12/06/2021 Influenza Vaccine (#1) 2025 , 09/04/2020, 11/13/2019 RSV Patients and Patients Aged 60 years or older (1 - 1-dose 75+ series) 2055 HIB [...] patient's age to complete this topic Meningococcal Vaccine Aged Out No hallie imelda eligible based on patient's age to complete this topic RSV under 20 months Aged Out No longe r eligible based on patient's age to complete this topic Rotavirus Vaccines Aged Out No longer eligible based on patient's age to complete this topic Insurance [facility] STANDARD MEDICARE [place]
--- NOTE | 2025-10-02 07:44 | PC.NURSE ---
sleeping, nad, resp even and unlabored
[2025-10-02] MEDS: Naloxone HCl Nasal TAKE HOME 4 MG SPRAY 8 MG NOSTRILALT (09:53)
[2025-10-02] MEDS: Potassium Chloride ER 20 MEQ TAB.ER.PRT PO (09:53)
--- NOTE | 2025-10-02 09:59 | PC.NURSE ---
alert, speech clear, skin wpd, ate full breakfast and was polite and appreciative , feminine pads provided and take homenarcan, k given as ordered, pt did not want to wait for paperwork and left
[2025-10-02 10:01] VITALS: BP 171/91; PULSE 74; RESP 20; TEMP 36.7; O2SAT 98
== END 2025-10-02 10:02 | disposition home or self-care (01) ==
PROVIDERS: Emergency Provider Emergency Medicine Emergency Medical Services; PCP Family Medicine
DX: R42 Dizziness and giddiness (principal); N92.0 Excessive and frequent menstruation with regular cycle; E87.6 Hypokalemia; F17.210 Nicotine dependence, cigarettes, uncomplicated; F14.10 Cocaine abuse, uncomplicated; Z79.899 Other long term (current) drug therapy; Z59.00 Homelessness unspecified
CPT/HCPCS: 36415; 80053; 84484; 85025; 93005; 99284

== ENCOUNTER → 2025-10-02 06:42 | Outpatient (BNV) | payer OTHER, SELFPAY | PROVIDERS: Emergency Provider Emergency Medicine Emergency Medical Services; PCP Family Medicine; Visit Provider Internal Medicine | DX: R42 Dizziness and giddiness (principal) | CPT/HCPCS: 93010 ==

== ENCOUNTER 2025-10-02 23:34 | Emergency (ER) | payer OTHER, SELFPAY ==
--- NOTE | ~2025-10-02 | XR_ITS ---
CLINICAL HISTORY: injury 4 view left knee Comparison: None provided Findings: No acute fractures or dislocations. Tricompartmental degenerative changes are present at the left knee. Small to moderate left suprapatellar effusion. No radiopaque foreign body. IMPRESSION: 1. No acute fracture or dislocation injury identified at the left knee. 2. Small to moderate left suprapatellar effusion. This document has been electronically signed by: Russell Carter MD on 10/03/2025 02:08:49
[2025-10-02 23:50] VITALS: BP 125/78; PULSE 69; RESP 16; TEMP 36.3; O2SAT 100; BMI 26.6
--- OUTSIDE RECORDS SUMMARY | 2025-10-03 00:14 | XMS_ITS | Clinical Summary ---
Author Organization [facility] ity Address [address] [place] [address] Care Team Providers Care Electrician Wiring Name Role Phone Unavailable Primary Care Provider [...]
--- OUTSIDE RECORDS SUMMARY | 2025-10-03 00:14 | XMS_ITS | Clinical Summary ---
Author Organization [employer] Address [address] [place] [address] Care Team Providers Care Brands Editor Name Role Phone Unavailable Primary Care Provider [...] patient's age to complete this topic Insurance [facility] [place]ANDARD MEDICARE [place]
[2025-10-03] MEDS: oxyCODONE HCl Immed Release 5 MG TABLET PO (01:56)
--- NOTE | 2025-10-03 02:02 | ED.GENADULT ---
HPI - General Adult General Chief complaint: Extremity Injury, Lower Stated complaint: left leg pain Time Seen by Provider: 10/03/25 00:52 Source: patient, RN notes reviewed and old records reviewed Mode of arrival: ambulatory Limitations: no limitations History of Present Illness ED Provider: Carrie HPI narrative: 45-year-old female with a past medical history significant for lupus, seizure disorder, bipolar disorder, PTSD, opiate use disorder, cocaine use presents for evaluation after a fall. The patient was seen here about 16 hours prior to my evaluation. She was seen for dizziness, was found to have a hypokalemia and was ultimately discharged She reports that she has been doing well upon her discharge pain She states that 1 time she stood up too early and got dizzy and fell on her left knee She has not had any other additional dizziness She reports left knee pain pain She does report to me that she broke her left knee cap about 5 months ago and did not have any surgery to repair it She believes she aggravated this previous injury. She denies hitting her head or losing consciousness Related Data Home Medications ?Medication ?Instructions ?Recorded ?Confirmed albuterol sulfate 90 mcg/actuation 2 puff inhalation Q4H PRN wheezing 03/21/24 04/04/24 aerosol inhaler buspirone 15 mg tablet 15 mg PO DAILY 03/21/24 04/04/24 cholecalciferol (vitamin D3) 50 50 mcg PO DAILY 03/21/24 04/04/24 mcg (2,000 unit) capsule clonazepam 2 mg tablet 2 mg PO TID PRN Anxiety 03/21/24 04/04/24 doxepin 75 mg capsule 75 mg PO BID 03/21/24 04/04/24 fluticasone propionate 50 1 spray intranasal DAILY 03/21/24 04/04/24 mcg/actuation nasal spray,suspension hydroxychloroquine 200 mg tablet 400 mg PO DAILY 03/21/24 04/04/24 levalbuterol HCl 1.25 mg/3 mL 1.25 mg inhalation Q4H PRN wheezing 03/21/24 04/04/24 solution for nebulization loratadine 10 mg tablet 10 mg PO DAILY 03/21/24 04/04/24 methadone 10 mg/mL oral 70 mg PO DAILY 03/21/24 04/04/24 concentrate (Methadose) rizatriptan 10 mg tablet 10 mg PO DAILY PRN migraine 03/21/24 04/04/24 fluoxetine 10 mg capsule 10 mg PO QAM 04/04/24 04/04/24 fluoxetine 20 mg capsule 20 mg PO QAM 04/04/24 04/04/24 folic acid 1 mg tablet 1 mg PO DAILY 04/04/24 04/04/24 Previous Rx's ?Medication ?Instructions ?Recorded levothyroxine 100 mcg tablet 100 mcg PO DAILY@0600 #0 tabs 03/23/24 (Synthroid) albuterol sulfate 90 mcg/actuation 2 puff inhalation Q4-6H PRN 04/04/24 aerosol inhaler (ProAir HFA) shortness of breath or wheezing #8.5 grams buspirone 15 mg tablet 15 mg PO DAILY #30 tabs 04/04/24 clonazepam 2 mg tablet 2 mg PO TID PRN anxiety #90 tabs 04/04/24 doxepin 75 mg capsule 75 mg PO BID #60 caps 04/04/24 hydroxychloroquine 400 mg tablet 400 mg PO DAILY #30 tabs 04/04/24 levothyroxine 100 mcg capsule 100 mcg PO DAILY #30 caps 04/04/24 methadone 10 mg/mL oral 40 mg (4 mL) PO DAILY #4 mL 04/04/24 concentrate (Methadose) rizatriptan 10 mg tablet See Rx Instructions PO .COMPLEX 04/04/24 #20 tabs potassium chloride 20 mEq 20 meq PO DAILY 2 weeks #14 tabs 10/02/25 tablet,extended release (K-Tab) Allergies Allergy/AdvReac Type Severity Reaction Status Date / Time hydrocodone (From VICODIN) Allergy Unknown HIVES Verified 10/02/25 23:56 midazolam (From VERSED) Allergy Unknown AGGRESSION Verified 10/02/25 23:56 rofecoxib (From VIOXX) Allergy Unknown HIVES Verified 10/02/25 23:56 sulfamethoxazole (From Allergy Unknown UNKNOWN Verified 10/02/25 23:56 BACTRIM) trimethoprim (From BACTRIM) Allergy Unknown UNKNOWN Verified 10/02/25 23:56 ibuprofen Allergy Vomiting Verified 10/02/25 23:56 bactrim Allergy Unknown Rash Uncoded 10/02/25 23:56 doxycycline Allergy Unknown Rash Uncoded 10/02/25 23:56 vicodin Allergy Unknown Anxiety Uncoded 10/02/25 23:56 viox Allergy Unknown Rash Uncoded 10/02/25 23:56 Review of Systems Constitutional: Constitutional: Denies body ache(s), Denies chills, Denies fever(s) and Denies headache(s) Eyes: Eyes: Denies blurry vision ENT: Denies vertigo, Reports dizziness and Denies headache(s) Cardiovascular: Cardiovascular: Denies chest pain and Denies dyspnea on exertion Respiratory: Respiratory: Denies cough and Denies dyspnea on exertion Gastrointestinal: Gastrointestinal: Denies abdominal pain Musculoskeletal: Musculoskeletal: Reports arthralgias, Reports joint swelling and Reports limited range of motion Integumentary/Breasts: Skin/Breast: Denies erythema, Denies rash and Denies wounds Neurologic: Denies vertigo, Reports dizziness and Denies headache(s) Psychiatric: Psychiatric: Denies anxiety PMFSH Past Medical History Medical History Antisocial personality disorder Cocaine use disorder Opioid use disorder PTSD (post-traumatic stress disorder) Bipolar 1 disorder UTI (urinary tract infection) Migraines Lupus Anxiety Surgical History History of pubovaginal sling Social History Social History Household Members: None Housing: Apartment Do you presently have visiting nurse or other home services: No Alcohol intake: never Patient Tobacco Use Status: Current everyday Tobacco user Tobacco use type: Cigarette Cigarette Packs Per Day: 2 Cigarettes Per Day: 40.0 Years Smoked: 7 years then quit for 19 years and restarted 9 months ago Second Hand Smoke Exposure: Yes Substance Use Type: Crack/Cocaine Advance Directives: No Advance Directives Information Provided: No Do you have a plan to hurt others: No Plan Patient : No Physical Exam ED Vital Signs: Vital Signs - 24 hr 10/02/25 23:50 Temperature 97.4 F Pulse Rate 69 Respiratory Rate 16 Blood Pressure 125/78 Pulse Oximetry 100 Oxygen Delivery Method Room Air BMI result Body Mass Index 26.6 Const General: healthy appearing, comfortable, no acute distress, alert and awake Nutritional Appearance: well nourished Orientation/consciousness: patient oriented x3 HENMT Head: Yes normocephalic and Yes atraumatic Eyes Eyelids: Yes eyelids normal Conjunctivae: conjunctivae normal Sclerae: sclerae normal Corneas: corneas normal Pupils: Equal, round and reactive pupils present EOM: EOMs intact bilaterally Neck Neck: Yes full ROM Resp Effort & Inspection: normal respiratory effort, able to speak in complete sentences and not labored Cardio Rate: regular rate Rhythm: regular rhythm GI Inspection: No distended Palpation (GI): Soft to palpation, not firm, nontender, no guarding and not rigid Skin General skin exam: elasticity normal Neuro General: patient oriented x3 Cranial nerves: Yes CN's II-XII intact bilaterally, Yes Equal, round and reactive pupils present and Yes Bilaterally intact EOM present Cognition (Neuro): normal cognition Extrem Other: The patient has mild edema to the left knee, she is tender to palpation of the lateral aspect of the left knee. There appears to be a mild joint effusion. She has limited range of motion with flexion of the left knee. She can fully extend at the left knee without difficulty. No Achilles tenderness. No left hip tenderness no open wounds Medications Administered Discontinued Medications Generic Name Dose Route Start Last Admin Trade Name Freq PRN Reason Stop Dose Admin Acetaminophen 975 mg 10/03/25 01:18 10/03/25 01:56 Acetaminophen 325 Mg Tablet PO 10/03/25 01:19 975 mg ONCE ONE Administration Oxycodone HCl 5 mg 10/03/25 01:18 10/03/25 01:56 Oxycodone Hcl Immed Release 5 Mg Tablet PO 10/03/25 01:19 5 mg ONCE ONE Administration Medical Decision Making Medical Decision Making [facility] Narrative: 45-year-old female presents for evaluation of left knee pain. She was seen here less than 24 hours ago for a fall and dizzy spells. She was ultimately discharged. She states that she was doing well upon her discharge but stood up too quickly causing her to feel lightheaded and fall down. She injured her left knee only, denies any head strike. She is alert and oriented x3, she has no neuro deficits. She does appear to have some mild edema to left knee without wounds. I have a low suspicion for patellar tendon rupture or quadriceps tendon rupture as she can extend the knee completely but has limited range of motion with flexion likely due to a small joint effusion. I reviewed her workup from yesterday. Her vital signs are within normal limits, she denies any chest pain, palpitations, shortness of breath and current dizziness. Plan for x-ray of the left knee Differential Diagnosis Differential Diagnoses: The differential diagnosis associated with the presentation includes Left knee contusion Left knee fracture Dislocation Meniscus injury Orthostasis Dehydration Independent Interpretation I performed an independent interpretation of an: Plain X-Ray Interpretation: No obvious acute fracture Radiology Impression Discussion of test interpretation with radiology: I have reviewed the radiologist's reading. Radiologist Impression: Findings: No acute fractures or dislocations. Tricompartmental degenerative changes are present at the left knee. Small to moderate left suprapatellar effusion. No radiopaque foreign body. IMPRESSION: 1. No acute fracture or dislocation injury identified at the left knee. 2. Small to moderate left suprapatellar effusion. This document has been electronically signed by: Russell Carter MD on 10/03/2025 02:08:49 Discharge Plan Discharge Clinical Impression: Acute pain of left knee Patient Disposition: Home, Self-Care Instructions: Knee Pain (ED) Additional Instructions: Your x-ray does not show any fracture. You may continue to use Tylenol as needed for pain. Follow up with your primary doctor, return for new or worsening symptoms Prescriptions: No Action clonazepam 2 mg tablet 2 mg PO TID PRN (Reason: Anxiety) levalbuterol HCl 1.25 mg/3 mL solution for nebulization 1.25 mg inhalation Q4H PRN (Reason: wheezing) albuterol sulfate 90 mcg/actuation HFA aerosol inhaler 2 puff inhalation Q4H PRN (Reason: wheezing) buspirone 15 mg tablet 15 mg PO DAILY methadone [Methadose] 10 mg/mL Concentrate 70 mg PO DAILY rizatriptan 10 mg tablet 10 mg PO DAILY PRN (Reason: migraine) Rx Instructions: MRX1 after 2 hours if needed doxepin 75 mg capsule 75 mg PO BID hydroxychloroquine 200 mg tablet 400 mg PO DAILY fluticasone propionate 50 mcg/actuation spray,suspension 1 spray intranasal DAILY loratadine 10 mg tablet 10 mg PO DAILY cholecalciferol (vitamin D3) 50 mcg (2,000 unit) capsule 50 mcg PO DAILY levothyroxine [Synthroid] 100 mcg Tablet 100 mcg PO DAILY@0600 Qty: 0 0RF fluoxetine 10 mg capsule 10 mg PO QAM folic acid 1 mg tablet 1 mg PO DAILY fluoxetine 20 mg capsule 20 mg PO QAM buspirone 15 mg tablet 15 mg PO DAILY Qty: 30 0RF clonazepam 2 mg tablet 2 mg PO TID PRN (Reason: anxiety) Qty: 90 0RF doxepin 75 mg capsule 75 mg PO BID Qty: 60 0RF hydroxychloroquine 400 mg tablet 400 mg PO DAILY Qty: 30 0RF rizatriptan 10 mg tablet See Rx Instructions .ROUTE .COMPLEX Qty: 20 0RF Rx Instructions: take 1 tab at onset of headache; if no relief may repeat 1 tab after at least 2 hrs; max = 3 tabs/24 hr levothyroxine 100 mcg capsule 100 mcg PO DAILY Qty: 30 0RF albuterol sulfate [ProAir HFA] 90 mcg/actuation HFA aerosol inhaler 2 puff inhalation Q4-6H PRN (Reason: shortness of breath or wheezing) Qty: 8.5 0RF methadone [Methadose] 10 mg/mL concentrate 40 mg PO DAILY Qty: 4 0RF Rx Instructions: Partial Fill upon patient request. potassium chloride [K-Tab] 20 mEq tablet extended release 20 meq PO DAILY 14 Days Qty: 14 0RF Referrals: Kari Lux MD [Primary Care Provider, Internal Medicine] Print Language: Yoruba
[2025-10-03 06:29] VITALS: BP 125/78; PULSE 69; RESP 16; TEMP 36.3; O2SAT 100
== END 2025-10-03 06:31 | disposition home or self-care (01) ==
PROVIDERS: Emergency Provider Emergency Medicine; PCP Internal Medicine
DX: M25.562 Pain in left knee (principal); G40.909 Epilepsy, unspecified, not intractable, without status epilepticus; M32.9 Systemic lupus erythematosus, unspecified; Z79.899 Other long term (current) drug therapy; F17.200 Nicotine dependence, unspecified, uncomplicated; Z71.6 Tobacco abuse counseling; Z91.81 History of falling
CPT/HCPCS: 73562; 99283; 99284

== ENCOUNTER → 2025-10-03 00:42 | Outpatient (BNV) | payer OTHER, SELFPAY | PROVIDERS: Emergency Provider Emergency Medicine; PCP Internal Medicine; Visit Provider Radiology Diagnostic Radiology | DX: M25.562 Pain in left knee (principal) | CPT/HCPCS: 73562 ==

== ENCOUNTER 2025-10-05 02:06 | Emergency (ER) | payer OTHER, SELFPAY ==
[2025-10-05 02:16] VITALS: BP 130/90; BP 169/110; PULSE 72; PULSE 77; RESP 16; TEMP 36.6; O2SAT 98; BMI 24.9
--- NOTE | 2025-10-05 02:20 | ED_ITS ---
HPI - General Adult General Chief complaint: Psychiatric Symptoms Stated complaint: ETOH SI DRUG USE Time Seen by Provider: 10/05/25 02:09 Source: patient and EMS Limitations: other (Intoxication) History of Present Illness ED Provider: Leesa Hitchcock PA-C HPI narrative: 45-year-old female with a history of antisocial personality disorder, PTSD, bipolar disorder, polysubstance abuse who presents intoxicated and with suicidal ideation. Patient states she developed thoughts of self-harm after the break-up of a long-term relationship. Patient states she has a plan to ?hang herself?. Patient has had prior suicide attempts in the past. She does not see a therapist, she states she is prescribed medication for psychiatric illness, but she has been nonadherent. Denies HI, use alcohol, admits to substance use. Related Data Home Medications ?Medication ?Instructions ?Recorded ?Confirmed No Known Home Meds 10/05/25 10/05/25 Allergies Allergy/AdvReac Type Severity Reaction Status Date / Time hydrocodone (From VICODIN) Allergy Unknown HIVES Verified 10/05/25 02:19 midazolam (From VERSED) Allergy Unknown AGGRESSION Verified 10/05/25 02:19 rofecoxib (From VIOXX) Allergy Unknown HIVES Verified 10/05/25 02:19 sulfamethoxazole (From Allergy Unknown UNKNOWN Verified 10/05/25 02:19 BACTRIM) trimethoprim (From BACTRIM) Allergy Unknown UNKNOWN Verified 10/05/25 02:19 ibuprofen Allergy Vomiting Verified 10/05/25 02:19 bactrim Allergy Unknown Rash Uncoded 10/05/25 02:19 doxycycline Allergy Unknown Rash Uncoded 10/05/25 02:19 vicodin Allergy Unknown Anxiety Uncoded 10/05/25 02:19 viox Allergy Unknown Rash Uncoded 10/05/25 02:19 Review of Systems 2 Review of Systems: Yes all other systems are reviewed and are negative Constitutional: Constitutional: Denies fatigue and Denies fever(s) Cardiovascular: Cardiovascular: Denies chest pain and Denies dyspnea Respiratory: Respiratory: Denies dyspnea Gastrointestinal: Gastrointestinal: Denies abdominal pain, Denies nausea and Denies vomiting Psychiatric: Psychiatric: Reports suicidal ideation Endocrine: Endocrine: Denies fatigue PMFSH Past Medical History Attestation statement: The following information was validated with the patient. Medical History Antisocial personality disorder Cocaine use disorder Opioid use disorder PTSD (post-traumatic stress disorder) Bipolar 1 disorder UTI (urinary tract infection) Migraines Lupus Anxiety Surgical History History of pubovaginal sling Social History Social History Household Members: None Housing: Apartment Do you presently have visiting nurse or other home services: No Alcohol intake: never Patient Tobacco Use Status: Current everyday Tobacco user Tobacco use type: Cigarette Cigarette Packs Per Day: 2 Cigarettes Per Day: 40.0 Years Smoked: 7 years then quit for 19 years and restarted 9 months ago Second Hand Smoke Exposure: Yes Use of substances other than those prescribed or required for medical reasons: Yes Substance Use Type: Crack/Cocaine and Heroin Substance Use Frequency: Daily Last Used Substance: Just Prior to Admission Advance Directives: No Advance Directives Information Provided: Yes Physical Exam ED Vital Signs: Vital Signs - 24 hr 10/05/25 02:16 10/05/25 08:57 10/05/25 10:00 Temperature 97.9 F 97.0 F 97.0 F Pulse Rate 77 70 70 Respiratory Rate 16 16 16 Blood Pressure 169/110 H 155/87 H 155/87 H Pulse Oximetry 98 99 99 Oxygen Delivery Method Room Air Room Air Room Air BMI result Body Mass Index 24.9 Const Other: Alert Orientation/consciousness: patient oriented x3 Resp Effort & Inspection: normal respiratory effort Cardio Other: Normal peripheral perfusion Skin Other: Warm dry no rash Neuro General: patient oriented x3, gait normal, no focal motor deficits and CN's II- XI intact bilaterally Psych Other: Cooperative Course Reevaluation(s) Reevaluation #1: Time: 02:32 Date: 10/05/25 Provider: DUSTIN Wu Patient in physician observation for psychiatric evaluation.? No acute events reported overnight. No current complaints. VS stable.? Patient is in bed search status/pending CARE team evaluation. Will continue to monitor. 9:21 AM 10/05/2025 (Dr. Shiva Rosas): Time: 09:21 Date: 10/05/25 Provider: Shiva Rosas DO Physician observation ended Patient has been cleared for discharge by the CARE team. Will follow up as an outpatient/Respite Time: 02:32 Medical Decision Making Medical Decision Making MDM Narrative: 45-year-old female with a history of antisocial personality disorder, PTSD, bipolar disorder, polysubstance abuse who presents intoxicated and with suicidal ideation. Patient states she developed thoughts of self-harm after the break-up of a long-term relationship. Patient states she has a plan to ?hang herself?. Patient has had prior suicide attempts in the past. She does not see a therapist, she states she is prescribed medication for psychiatric illness, but she has been nonadherent. Denies HI, use alcohol, admits to substance use. Problem: Polysubstance abuse, psychiatric illness History: Per patient I have considered the following differential diagnoses: SI, HI, decompensated psychiatric illness, drug/alcohol intoxication Plan: Patient will be referred to the care team, screening labs including ethanol, drug screen we will be obtained. I have independently reviewed the following tests: Labs: No leukocytosis, not anemic, no electrolyte abnormality, not , ethanol less than 10, U tox positive for opiates, methadone, fentanyl and cocaine Differential Diagnosis Differential Diagnoses: The differential diagnosis associated with the presentation includes See MDM Admission/Observation Consideration of admission/observation: Escalation of care including admission/observation considered Consult Healthcare Provider Management of the patient was discussed with: Behavioral Health Provider Care team Lab Data [facility] Lab Attestation statement: I reviewed the patient's lab results. 10/05/25 02:32 11 02:32 Labs: Lab Results 10/05/25 Range/Units 02:32 WBC 9.3 (4.8-10.8) X10*3/uL RBC 3.95 L (4.20-5.50) X10*6/uL Hgb 12.2 (12.0-16.0) g/dl Hct 36.3 L (37.0-47.0) % MCV 91.9 (80.0-98.0) fL MCH 30.9 (27.0-33.0) pg MCHC 33.6 (31.0-35.0) g/dl RDW 13.8 (11.0-16.0) % Plt Count 311 (160-400) X10*3/uL MPV 9.7 (9.4-12.3) fL Immature Gran % (Auto) 0.2 (0.0-0.4) % Neut % (Auto) 64.5 (45-73) % Lymph % (Auto) 25.1 (20-40) % [place] % (Auto) 7.9 (2-11) % Eos % (Auto) 1.1 (0-4) % Baso % (Auto) 1.2 (0-2) % Lymph # (Auto) 2.3 (1.2-4.9) X10*3/uL [place] # (Auto) 0.7 (0.1-1.2) X10*3/uL Eos # (Auto) 0.1 (0.0-0.4) X10*3/uL Baso # (Auto) 0.1 (0.0-0.2) X10*3/uL Abs Immat Gran (auto) 0.02 (0.00-0.03) X10*3/uL Absolute Neuts (auto) 6.0 (2.0-8.3) x10*3/uL Absolute Nucleated RBC 0.000 (0.0-0.012) X10*3/uL Nucleated RBC % (auto) 0.0 (0.0-0.2) /100WBC Sodium 142 (135-145) mmol/L Potassium 3.3 (3.3-5.1) mmol/L Chloride 104 (96-108) mmol/L Carbon Dioxide 29 (22-29) mmol/L Anion Gap 12 (12-20) BUN 18 H (9-16) mg/dL Creatinine 0.83 (0.5-1.4) mg/dL Estim Creat Clear Calc 79.8 Estimated GFR > 60 Random Glucose 84 (60-115) mg/dL Calcium 8.9 (8.4-10.2) mg/dL Magnesium 2.4 (1.6-2.6) mg/dL Total Bilirubin 0.5 (0.0-1.0) mg/dL AST 43 H (5-31) U/L ALT 26 (0-31) U/L Alkaline Phosphatase 74 (39-117) U/L Total Protein 7.0 (6.5-8.0) g/dL Albumin 4.5 (3.5-5.0) g/dL Beta HCG, Quant < 2 mIU/mL Salicylates < 5.0 L (15-30) mg/dL Acetaminophen < 3 (<30) mcg/mL Ethyl Alcohol < 10 mg/dL Discharge Plan Discharge Clinical Impression: Suicidal ideation, Polysubstance abuse Patient Disposition: Home, Self-Care Additional Instructions: You were seen in our Emergency Department today for treatment of a behavioral health issue. It is important after your visit that you follow up with either your behavioral health provider or a primary care doctor within 7 days.? If you have trouble finding a therapist you can reach out to [address] [phone] The National Suicide and Crisis Lifeline can be reached 7 days a week 24 hours a day.? Call 988 to speak with someone.? Return for any worsening symptoms or concerns such as thoughts of self harm or harm to others. Please call 911 if you feel your mental health is worsening.? Prescriptions: No Action No Known Home Meds Interventions: [place]-Suicide Risk Severity Scale Last Done: 10/05/25 02:21 ED Discharge Assessment Last Done: 10/05/25 10:00 Discharge Date/Time: 10/05/25 10:42 Print Language: Bulgarian
[2025-10-05 02:37] LABS: Hematocrit 36.3 % (37.0-47.0); Hemoglobin 12.2 g/dl (12.0-16.0); Imm Gran Abs Auto 0.02 X10*3/uL (0.00-0.03); Imm Gran Pct Auto 0.2 % (0.0-0.4); Lymphocytes Absolute Auto 2.3 X10*3/uL (1.2-4.9); MANUAL DIFF FLAG NO; Mean Corpuscular HGB Conc 33.6 g/dl (31.0-35.0); Mean Corpuscular Hemoglobin 30.9 pg (27.0-33.0); Mean Corpuscular Volume 91.9 fL (80.0-98.0); NRBC Abs Auto 0.000 X10*3/uL (0.0-0.012); NRBC Pct Auto 0.0 /100WBC (0.0-0.2); Platelet Count 311 X10*3/uL (160-400); Red Blood Count 3.95 X10*6/uL (4.20-5.50); White Blood Count 9.3 X10*3/uL (4.8-10.8)
--- NOTE | 2025-10-05 03:00 | PC.NURSE ---
Received patient on POD. overlock hemmer completed in the Main. Belongings secured in Locker [address]5. Appears to be intoxicated. Reports Heroin and Crack Cocaine use about 1 hour prior to arriving [place] [facility]. Endorses +SI with plan to OD, jump into traffic, or hang self. Endorses +AH of voices putting me down. Endorses +VH, but unable to elaborate further d/t patient falling asleep during conversation. Denies HI. Agreeable to alert staff if feeling unsafe. Reports she's been prescribed psychiatric medications in the past, but has been non-adherent for at least 3 months. Endorses 10/10 pain to feet d/t being homeless and walking everywhere. Food tray ordered. 15 minute safety checks initiated. Continue plan for Crisis Eval.
[2025-10-05 03:08] LABS: Alanine Aminotransferase 26 U/L (0-31); Albumin Level 4.5 g/dL (3.5-5.0); Alkaline Phosphatase 74 U/L (39-117); Anion Gap 12 (12-20); Aspartate Amino Transferase 43 U/L (5-31); Blood Urea Nitrogen 18 mg/dL (9-16); Calcium 8.9 mg/dL (8.4-10.2); Carbon Dioxide 29 mmol/L (22-29); Chloride 104 mmol/L (96-108); Creatinine Clr Calc Pharmacy 79.8; Estimated Glomerular Filt Rate > 60; Magnesium 2.4 mg/dL (1.6-2.6); Potassium 3.3 mmol/L (3.3-5.1); Sodium 142 mmol/L (135-145); Total Protein 7.0 g/dL (6.5-8.0)
[2025-10-05 03:14] LABS: Acetaminophen LAB < 3 mcg/mL (<30); Salicylate < 5.0 mg/dL (15-30)
--- OUTSIDE RECORDS SUMMARY | 2025-10-05 05:06 | XMS_ITS | Clinical Summary ---
Author Organization [employer] Address [address] [place] [address] Care Team Providers Care Sweep Press Operator Name Role Phone Unavailable Primary Care Provider [...] patient's age to complete this topic Insurance [employer] STANDARD MEDICARE [place]
--- OUTSIDE RECORDS SUMMARY | 2025-10-05 05:06 | XMS_ITS | Clinical Summary ---
Author Organization [facility] ity Address [address] [place] [address] Care Team Providers Care Biochemistry Teacher Name Role Phone Unavailable Primary Care Provider [...]
--- NOTE | 2025-10-05 07:37 | PC.NURSE ---
Assumed care of patient at 0645, patient appears to be in no apparent distress this am, resting in bed, respirations even and unlabored. Continue plan of care for CARE team gertrude
[2025-10-05 08:53] VITALS: PULSE 70
[2025-10-05 08:57] VITALS: BP 155/87; PULSE 70; RESP 16; TEMP 36.1; O2SAT 99
--- NOTE | 2025-10-05 08:57 | PC.NURSE ---
Pt woke up and ambulated to nurses stationrosie, loudly stating it's fucking cold in here, can I get a sweatshirt . This RN educated patient that we cannot provide her with a sweatshirt but she was offered warm blankets which she loudly scoffed and stated Fine, but its fucking cold, I need a sweatshirt . This RN provided patient with warm blankets. Pt remains ornery I need methadone I am withdrawing and I am going to respite this morning . Pt educated that she needs to be seen by CARE team prior to being dispositioned to go to respite to which patient abruptly interrupted this RN stating well then fucking get the, I am going to be seen . Pt educated on need for urine sample prior to being seen which patient then reported well I just went, so youre gonna have to fucking wait . Pt then laid down and is now resting in bed
--- NOTE | 2025-10-05 09:05 | PC.NURSE ---
COWS score 20, MD aware
[2025-10-05 10:00] VITALS: BP 155/87; PULSE 70; RESP 16; TEMP 36.1; O2SAT 99
== END 2025-10-05 10:42 | disposition home or self-care (01) ==
PROVIDERS: Physician Assistant Medical; Emergency Provider Emergency Medicine
DX: R45.851 Suicidal ideations (principal); F19.10 Other psychoactive substance abuse, uncomplicated; F60.2 Antisocial personality disorder; F43.10 Post-traumatic stress disorder, unspecified; F31.9 Bipolar disorder, unspecified; Z88.2 Allergy status to sulfonamides; Z88.5 Allergy status to narcotic agent; Z88.8 Allergy status to other drugs, medicaments and biological substances
CPT/HCPCS: 36415; 80053; 80143; 80179; 80307; 83735; 84702; 85025; 99285; S9485

== ENCOUNTER 2025-10-10 04:05 | Emergency (ER) | payer OTHER, SELFPAY ==
[2025-10-10 04:12] VITALS: BP 149/99; PULSE 81; RESP 20; TEMP 35; O2SAT 96; BMI 22.3
--- OUTSIDE RECORDS SUMMARY | 2025-10-10 04:25 | XMS_ITS | Clinical Summary ---
Author Organization [facility] ity Address [address] [place] [address] Care Team Providers Care Box Loader Name Role Phone Unavailable Primary Care Provider [...]
--- OUTSIDE RECORDS SUMMARY | 2025-10-10 04:25 | XMS_ITS | Clinical Summary ---
Author Organization [employer] Address [address] [facility] [address] [place] [address] Care Team Providers Care System Architect Name Role Phone Unavailable Primary Care Provider [...] patient's age to complete this topic Insurance [facility] STANDARD MEDICARE [place]
[2025-10-10 04:37] LABS: MANUAL DIFF FLAG NO
[2025-10-10 04:38] LABS: Hematocrit 39.1 % (37.0-47.0); Hemoglobin 13.2 g/dl (12.0-16.0); Imm Gran Abs Auto 0.05 X10*3/uL (0.00-0.03); Imm Gran Pct Auto 0.6 % (0.0-0.4); Lymphocytes Absolute Auto 2.0 X10*3/uL (1.2-4.9); Mean Corpuscular HGB Conc 33.8 g/dl (31.0-35.0); Mean Corpuscular Hemoglobin 31.0 pg (27.0-33.0); Mean Corpuscular Volume 91.8 fL (80.0-98.0); NRBC Abs Auto 0.000 X10*3/uL (0.0-0.012); NRBC Pct Auto 0.0 /100WBC (0.0-0.2); Platelet Count 337 X10*3/uL (160-400); Red Blood Count 4.26 X10*6/uL (4.20-5.50); White Blood Count 8.6 X10*3/uL (4.8-10.8)
[2025-10-10 04:40] LABS: Appearance Urine Clear; Glucose Urine UA Negative (Negative); PH 5.5 (5.0-9.0); Specific Gravity - Urine 1.025 (1.005-1.025); UMIC TRIGGER UACC YES
[2025-10-10 04:48] LABS: Cannabinoid Screen Urine POSITIVE (Not Detect)
[2025-10-10 04:54] LABS: Alanine Aminotransferase 27 U/L (0-31); Albumin Level 4.9 g/dL (3.5-5.0); Alkaline Phosphatase 60 U/L (39-117); Anion Gap 13 (12-20); Aspartate Amino Transferase 42 U/L (5-31); Blood Urea Nitrogen 22 mg/dL (9-16); Calcium 9.5 mg/dL (8.4-10.2); Carbon Dioxide 27 mmol/L (22-29); Chloride 104 mmol/L (96-108); Creatinine Clr Calc Pharmacy 73.0; Estimated Glomerular Filt Rate > 60; Lipase 12 U/L (8-78); Potassium 3.4 mmol/L (3.3-5.1); Sodium 141 mmol/L (135-145); Total Protein 7.6 g/dL (6.5-8.0)
--- NOTE | 2025-10-10 05:40 | ED_ITS ---
HPI - General Adult General Chief complaint: Abdominal Pain Stated complaint: Stomach Pain Time Seen by Provider: 10/10/25 05:39 Source: patient History of Present Illness HPI narrative: 45-year-old female with a history of lupus, seizures, bipolar disorder, PTSD, opiate use, cocaine, homeless use who presents emergency department for evaluation of intermittent, suprapubic pain x1 week. The patient had a heavy menstrual period 1 week prior and she states that she is only spotting. She did notice a whitish discharge on her underwear today. She is sexually active but he has not had intercourse in 2 months. She denied fever but did have chills. She has had nausea with no vomiting or diarrhea. She denied frequency, urgency or dysuria. Patient was seen in the emergency department on 10/02/2025 for heavy menses, near-syncope and hypokalemia secondary to not eating and drinking. Patient was seen on 10/03/2025 for dizziness with a fall. She was also seen on 10/05/2025 for suicidal ideation. The patient states she has been homeless for 2 years and has been living on the streets. She does use intranasal heroin and crack cocaine. Related Data Previous Rx's ?Medication ?Instructions ?Recorded azithromycin 500 mg tablet 1,000 mg (2 x 500 mg) PO QW MASHPEE 2 10/10/25 weeks #4 tabs metronidazole 500 mg tablet 500 mg PO BID 14 days #28 tabs 10/10/25 Allergies Allergy/AdvReac Type Severity Reaction Status Date / Time hydrocodone (From VICODIN) Allergy Unknown HIVES Verified 10/10/25 04:14 midazolam (From VERSED) Allergy Unknown AGGRESSION Verified 10/10/25 04:14 rofecoxib (From VIOXX) Allergy Unknown HIVES Verified 10/10/25 04:14 sulfamethoxazole (From Allergy Unknown UNKNOWN Verified 10/10/25 04:14 BACTRIM) trimethoprim (From BACTRIM) Allergy Unknown UNKNOWN Verified 10/10/25 04:14 ibuprofen Allergy Vomiting Verified 10/10/25 04:14 bactrim Allergy Unknown Rash Uncoded 10/05/25 02:19 doxycycline Allergy Unknown Rash Uncoded 10/05/25 02:19 vicodin Allergy Unknown Anxiety Uncoded 10/05/25 02:19 viox Allergy Unknown Rash Uncoded 10/05/25 02:19 Review of Systems 2 Review of Systems: Yes all other systems are reviewed and are negative [facility] Past Medical History [facility] Narrative: Social history: Patient is homeless. She does smoke cigarettes. She denies alcohol use. She uses intranasal heroin and crack cocaine. Medical History Antisocial personality disorder Cocaine use disorder Opioid use disorder PTSD (post-traumatic stress disorder) Bipolar 1 disorder UTI (urinary tract infection) Migraines Lupus Anxiety Surgical History History of pubovaginal sling Social History Social History Household Members: None Housing: Apartment Do you presently have visiting nurse or other home services: No Alcohol intake: never Patient Tobacco Use Status: Current everyday Tobacco user Tobacco use type: Cigarette Cigarette Packs Per Day: 2 Cigarettes Per Day: 40.0 Years Smoked: 7 years then quit for 19 years and restarted 9 months ago Smoked in Last 30 Days: Yes Second Hand Smoke Exposure: Yes Use of substances other than those prescribed or required for medical reasons: No Substance Use Type: Crack/Cocaine and Heroin Advance Directives: No Advance Directives Information Provided: No Do you have a plan to hurt others: No Plan Patient : No Physical Exam ED Vital Signs: Vital Signs - 24 hr 10/10/25 04:12 Temperature 95.0 F L Pulse Rate 81 Respiratory Rate 20 Blood Pressure 149/99 H Pulse Oximetry 96 Oxygen Delivery Method Room Air BMI result Body Mass Index 22.3 Vital signs revealed an elevated blood pressure of 149/99 with a low temperature of 95 degrees F-most likely secondary to cold exposure Exam: General: Awake, alert in no distress Head: Normocephalic, atraumatic EENT: PERRL, sclera and conjunctiva are normal, mouth with no erythema or exudates Neck: Supple, no adenopathy Lung: breath sounds symmetric, no wheezing, no rales and no rhonchi Chest: symmetric movement, nontender Heart: regular rate and rhythm, normal S1, S2 no murmurs or rubs Abdomen: soft, moderate suprapubic tenderness, no rebound, no voluntary or involuntary guarding, normoactive bowel sounds Pelvic exam: External: No external lesions noted Vaginal: Thick whitish cervical discharge, no vaginal discharge, small amount of dark blood noted in the vagina Bimanual: Severe cervical motion tenderness, moderate uterine and bilateral adnexal tenderness Back: no vertebral tenderness, no CVAT Extremities: no deformities, moves all extremities symmetrically, no edema Neuro: Awake, alert, oriented, normal speech, cranial nerves 2-12 intact, moves all extremities symmetrically Psych: Pleasant, cooperative Medications Administered Discontinued Medications Generic Name Dose Route Start Last Admin Trade Name Lori PRN Reason Stop Dose Admin Acetaminophen 975 mg 10/10/25 06:17 10/10/25 07:22 Acetaminophen 325 Mg Tablet PO 10/10/25 06:18 975 mg ONCE STA Administration Acetaminophen 975 mg 10/10/25 06:22 10/10/25 06:59 Acetaminophen 325 Mg Tablet PO 10/10/25 06:23 Not Given ONCE STA Ceftriaxone Sodium 500 mg/ 0 mg 10/10/25 06:15 10/10/25 06:46 Lidocaine HCl 1 ml IM 10/10/25 06:16 1 kit ONCE ONE Administration Medical Decision Making Medical Decision Making MDM Narrative: 45-year-old female with a history of lupus, seizures, bipolar disorder, PTSD, opiate use, cocaine, homeless use who presents emergency department for evaluation of intermittent, suprapubic pain x1 week. The patient had a heavy menstrual period 1 week prior and she states that she is only spotting. She did notice a whitish discharge on her underwear today. She is sexually active but he has not had intercourse in 2 months. She denied fever but did have chills. She has had nausea with no vomiting or diarrhea. She denied frequency, urgency or dysuria. Patient has been seen frequently here in the emergency department over the last week. Vital signs revealed an elevated blood pressure. Exam revealed suprapubic tenderness. Pelvic exam revealed a whitish cervical discharge, no vaginal discharge, small amount of dark blood in the vagina, severe cervical motion tenderness with moderate uterine and adnexal tenderness bilaterally. Differential diagnosis: ?Includes but is not limited to pelvic inflammatory disease, cervicitis, urinary tract infection, viral syndrome, anemia, electrolyte abnormalities Course: 06:05 My independent interpretation patient's laboratory evaluation as follows: CBC was normal. BUN elevated 22 with a normal creatinine. AST elevated 42. Urinalysis positive for protein, blood, leukocyte esterase. Microscopic revealed greater than 20 RBCs, 0-5 WBCs, no squamous cells, no bacteria. Drug screen urine positive for opiates, fentanyl, cocaine and marijuana. Patient's pelvic exam is consistent with a pelvic inflammatory disease. BV, trich, gonorrhea and chlamydia cultures were obtained. Patient was treated with ceftriaxone 500 mg mixed with with 1% lidocaine IM. Patient was given Tylenol 975 mg orally. Patient was prescribed azithromycin 1000 mg now repeat in 1 week (the patient is allergic to doxycycline), metronidazole 500 mg q.12 hours times 14 days and Tylenol 1000 mg every 6 hours as needed for pain. She was given printed and verbal instructions and discharged home. She will need to follow up with a plater hot dip to make sure that her symptoms are better after treatment. She was given printed and verbal instructions and discharged home Differential Diagnosis Differential Diagnoses: The differential diagnosis associated with the presentation includes (See above) Admission/Observation Consideration of admission/observation: Escalation of care including admission/observation considered (Yes) Lab Data MDM Lab Attestation statement: I reviewed the patient's lab results. 10/10/25 04:27 10/10/25 04:27 Labs: Lab Results 10/10/25 10/10/25 Range/Units 04:27 06:19 WBC 8.6 (4.8-10.8) X10*3/uL RBC 4.26 (4.20-5.50) X10*6/uL Hgb 13.2 (12.0-16.0) g/dl Hct 39.1 (37.0-47.0) % MCV 91.8 (80.0-98.0) fL MCH 31.0 (27.0-33.0) pg MCHC 33.8 (31.0-35.0) g/dl RDW 13.9 (11.0-16.0) % Plt Count 337 (160-400) X10*3/uL MPV 10.4 (9.4-12.3) fL Immature Gran % (Auto) 0.6 H (0.0-0.4) % Neut % (Auto) 67.8 (45-73) % Lymph % (Auto) 23.5 (20-40) % [place] % (Auto) 6.3 (2-11) % Eos % (Auto) 0.6 (0-4) % Baso % (Auto) 1.2 (0-2) % Lymph # (Auto) 2.0 (1.2-4.9) X10*3/uL [place] # (Auto) 0.5 (0.1-1.2) X10*3/uL Eos # (Auto) 0.1 (0.0-0.4) X10*3/uL Baso # (Auto) 0.1 (0.0-0.2) X10*3/uL Abs Immat Gran (auto) 0.05 H (0.00-0.03) X10*3/uL Absolute Neuts (auto) 5.8 (2.0-8.3) x10*3/uL Absolute Nucleated RBC 0.000 (0.0-0.012) X10*3/uL Nucleated RBC % (auto) 0.0 (0.0-0.2) /100WBC Sodium 141 (135-145) mmol/L Potassium 3.4 (3.3-5.1) mmol/L Chloride 104 (96-108) mmol/L Carbon Dioxide 27 (22-29) mmol/L Anion Gap 13 (12-20) BUN 22 H (9-16) mg/dL Creatinine 0.84 (0.5-1.4) mg/dL Estim Creat Clear Calc 73.0 Estimated GFR > 60 Random Glucose 83 (60-115) mg/dL Calcium 9.5 D (8.4-10.2) mg/dL Total Bilirubin 0.5 (0.0-1.0) mg/dL AST 42 H (5-31) U/L ALT 27 (0-31) U/L Alkaline Phosphatase 60 (39-117) U/L Total Protein 7.6 (6.5-8.0) g/dL Albumin 4.9 (3.5-5.0) g/dL Lipase 12 (8-78) U/L Urine Color Yellow Urine Appearance Clear Urine pH 5.5 (5.0-9.0) Ur Specific [place] 1.025 (1.005-1.025) Urine Protein 30 (1+) H (Neg-Trace) mg/dL Urine Glucose (UA) Negative (Negative) mg/dL Urine Ketones Trace (Negative) mg/dL Urine Blood Large (3+) H (Negative) Urine Nitrite Negative (Negative) Ur Leukocyte Esterase Trace H (Negative) Urine RBC >20 H (0-2) /HPF Urine WBC 0-5 (0-5) /HPF Ur Squamous Epith Cells 0-2 (0-2) /HPF Urine Bacteria None Seen (None Seen) Hyaline Casts 3-5 (0-2) /LPF Urine Opiates Screen POSITIVE H (Not Detect) Ur Buprenorphine Scrn Not Detected (Not Detect) ng/mL Ur Oxycodone Screen Not Detected (Not Detect) ng/mL Urine Methadone Screen Not Detected (Not Detect) ng/mL Urine Fentanyl Screen POSITIVE H (Not Detect) Ur Barbiturates Screen Not Detected (Not Detect) Ur Phencyclidine Scrn Not Detected (Not Detect) Ur Amphetamines Screen Not Detected (Not Detect) U Benzodiazepines Scrn Not Detected (Not Detect) Urine Cocaine Screen POSITIVE H (Not Detect) U Marijuana (THC) Screen POSITIVE H (Not Detect) Chlam trachomat DNA PCR NOT DETECTED (Not Detect.) N.gonorrhoeae DNA (PCR) NOT DETECTED (Not Detect.) T. vaginalis (PCR) NOT DETECTED (Not Detect) Bact vaginosis (PCR) NEGATIVE (Negative) C. krusei/glabrata (PCR) NOT DETECTED (Not Detect) Nancy group (PCR) NOT DETECTED (Not Detect) Prescription Management I considered prescription management with: Pain Medication (I prescribed Tylenol) and Antibiotic (I prescribed doxycycline and metronidazole) Chronic Conditions Patient?s care impacted by: Other (Polysubstance use disorder, PTSD) Social Determinants Patient?s care significantly limited by Social Determinants of Health including: Inadequate housing Discharge Plan Discharge Clinical Impression: Acute pelvic inflammatory disease, Polysubstance use disorder Patient Disposition: Home, Self-Care Instructions: Polysubstance Use Disorder (ED) Additional Instructions: Your blood work was unremarkable. Your urine did not reveal any evidence for an infection which is reassuring. Your urine drug screen was positive for opiates, fentanyl, cocaine and marijuana. Your are being discharged home with intranasal Narcan. If you are going to continue to use heroin, you should make sure that there is a sober person with you that is not using drugs and that this person can administer intranasal Narcan in the event that you stop breathing. If you want to get help with your substance use disorder please see the instructions below for follow-up care. Pelvic inflammatory disease instructions: Your presentation and physical findings are consistent with pelvic inflammatory disease (PID). Approximately 30% of the time, pelvic inflammatory disease is caused by sexually transmitted diseases such as Trichomonas, gonorrhea or chlamydia. Approximately 70% of the time, pelvic inflammatory disease is caused by abnormal bacteria (anaerobic bacteria) in your vagina that can cause an infection ? Medications You received ceftriaxone 500 mg intramuscularly here in the emergency department Take azithromycin 1000 mg now and repeat azithromycin 1000 mg in 1 week. Take metronidazole 500 mg, 1 pill twice a day for 14 days. These 3 antibiotics treat sexually transmitted diseases such as gonorrhea, chlamydia and Trichomonas as well as anaerobic bacteria that can cause pelvic inflammatory disease. Take Tylenol (acetaminophen) 500 mg pills, 2 pills every 4 to 6 hours as needed for pain. Follow-Up Follow-up with your gynecology in ?10-14 days. If you do not have a plater hot dip you can call or go to the plater hot dip referral list below for follow-up. Pending laboratory tests: The doctor that follows up ?will need to review the following results with you: Bacterial vaginosis testing Gonorrhea and chlamydia (cervical swab) Trichomonas testing You can also check these results on the patient portal. Return precautions: Please return to the emergency department if your symptoms get worse if your pain does not go away in 24-48 hours or if you develop any symptoms that are concerning to you. You were seen in the Emergency Department today for a gynecologic problem. Opiate use disorder You were seen in our Emergency Department today abdominal pain but your urine drug screen was positive for opiates, fentanyl and cocaine. If you decide you want to stop or cut down on how much you?re using, you can call or walk into our outpatient Addiction Treatment office: [facility] (M-F 9am-5p) [address] [place] [address], [facility] [phone] You may have been provided with safer injection?items, please take time to take care of YOU and your health. Use new supplies whenever possible to lessen the chances of infections and other illnesses.? ?If you need more supplies, please go [facility],? [address] [place] [address] OR you can call or text to coordinate delivery of safer supplies. Gynecology referral list OBGYN and Midwifery [facility] [address] [place] [address] [phone] [facility] O[facility]YN [address] [facility] [phone] [facility] [address] [place] [phone] OBGYN and Midwifery [place] [phone] [facility] [phone] Prescriptions: New metronidazole 500 mg tablet 500 mg PO BID 14 Days Qty: 28 0RF azithromycin 500 mg tablet 1,000 mg PO QWEEK 14 Days Qty: 4 0RF Print Language: Chinese
[2025-10-10] MEDS: cefTRIAXone sodium 500 MG, Lidocaine HCl 1 % MPF 1 ML IM (06:46)
[2025-10-10 07:24] LABS: Bacterial Vaginosis PCR NEGATIVE (Negative); Candida Group PCR NOT DETECTED (Not Detect); Candida glab krusei PCR NOT DETECTED (Not Detect); Trichomonas vaginalis PCR NOT DETECTED (Not Detect)
[2025-10-10 07:54] LABS: CT PCR NOT DETECTED (Not Detect.); NG PCR NOT DETECTED (Not Detect.)
[2025-10-10 09:55] VITALS: BP 149/99; PULSE 81; RESP 20; TEMP 35; O2SAT 96
--- NOTE | 2025-10-10 10:05 | PC.NURSE ---
This RN assumed care of patient @ 0700 Patient was resting comfortably in bed Patient to be discharged just waiting for pharmacy to open to deliver meds to patient as she is homeless Patient was given discharge packet but wanted packet to be shredded as she didnt want to carry the personal info with her Packet has been shredded. Patient discharged with medications
[2025-10-10 10:07] VITALS: BP 149/99; PULSE 81; RESP 20; TEMP 35; O2SAT 96
== END 2025-10-10 10:08 | disposition home or self-care (01) ==
PROVIDERS: Emergency Provider Emergency Medicine Emergency Medical Services
DX: N73.9 Female pelvic inflammatory disease, unspecified (principal); F11.90 Opioid use, unspecified, uncomplicated; F12.90 Cannabis use, unspecified, uncomplicated; F14.90 Cocaine use, unspecified, uncomplicated; R10.22 Pelvic and perineal pain left side; F17.210 Nicotine dependence, cigarettes, uncomplicated; Z51.81 Encounter for therapeutic drug level monitoring; Z79.899 Other long term (current) drug therapy; Z20.2 Contact with and (suspected) exposure to infections with a predominantly sexual mode of transmission
CPT/HCPCS: 36415; 80053; 80307; 81001; 81515; 83690; 85025; 87491; 87591; 96372; 99284; J0696; J2003

== ENCOUNTER 2025-10-15 23:57 | Emergency (ER) | payer OTHER, SELFPAY ==
[2025-10-16] VITALS: BP 177/101; PULSE 82; RESP 16; TEMP 36.6; O2SAT 97; BMI 38.6
--- NOTE | 2025-10-16 00:08 | ECG_ITS ---
Test Reason : HTN Blood Pressure : */* mmHG Vent. Rate : 70 BPM Atrial Rate : 70 BPM P-R Int : 146 ms QRS Dur : 86 ms QT Int : 406 ms P-R-T Axes : 66 73 39 degrees QTcB Int : 438 ms Normal sinus rhythm Normal ECG When compared with ECG of 02-Oct-2025 06:42, No significant change was found Referred By: Generic ED Physician Electronically Signed By: HYACINTH QUICK
[2025-10-16 00:37] LABS: Hematocrit 37.9 % (37.0-47.0); Hemoglobin 12.6 g/dl (12.0-16.0); Imm Gran Abs Auto 0.01 X10*3/uL (0.00-0.03); Imm Gran Pct Auto 0.1 % (0.0-0.4); Lymphocytes Absolute Auto 2.0 X10*3/uL (1.2-4.9); MANUAL DIFF FLAG NO; Mean Corpuscular HGB Conc 33.2 g/dl (31.0-35.0); Mean Corpuscular Hemoglobin 30.9 pg (27.0-33.0); Mean Corpuscular Volume 92.9 fL (80.0-98.0); NRBC Abs Auto 0.000 X10*3/uL (0.0-0.012); NRBC Pct Auto 0.0 /100WBC (0.0-0.2); Platelet Count 316 X10*3/uL (160-400); Red Blood Count 4.08 X10*6/uL (4.20-5.50); White Blood Count 8.0 X10*3/uL (4.8-10.8)
[2025-10-16 00:57] LABS: Alanine Aminotransferase 36 U/L (0-31); Albumin Level 4.7 g/dL (3.5-5.0); Alkaline Phosphatase 61 U/L (39-117); Anion Gap 13 (12-20); Aspartate Amino Transferase 51 U/L (5-31); Blood Urea Nitrogen 17 mg/dL (9-16); Calcium 9.5 mg/dL (8.4-10.2); Carbon Dioxide 30 mmol/L (22-29); Chloride 104 mmol/L (96-108); Creatinine Clr Calc Pharmacy 111.6; Estimated Glomerular Filt Rate > 60; Potassium 3.6 mmol/L (3.3-5.1); Sodium 143 mmol/L (135-145); Total Protein 7.3 g/dL (6.5-8.0)
== END 2025-10-16 01:01 | disposition left against medical advice (07) ==
PROVIDERS: Emergency Provider Emergency Medicine
DX: Z20.2 Contact with and (suspected) exposure to infections with a predominantly sexual mode of transmission (principal); Z59.02 Unsheltered homelessness; F60.2 Antisocial personality disorder; F14.10 Cocaine abuse, uncomplicated; F11.90 Opioid use, unspecified, uncomplicated; F43.10 Post-traumatic stress disorder, unspecified; F31.9 Bipolar disorder, unspecified
CPT/HCPCS: 36415; 80053; 85025; 93005

== ENCOUNTER → 2025-10-16 00:08 | Outpatient (BNV) | payer OTHER, SELFPAY | PROVIDERS: Emergency Provider Emergency Medicine; Visit Provider Internal Medicine | DX: I10 Essential (primary) hypertension (principal) | CPT/HCPCS: 93010 ==

== ENCOUNTER 2025-10-16 03:05 | Emergency (ER) | payer OTHER, SELFPAY ==
[2025-10-16 03:10] VITALS: BP 116/78; PULSE 78; O2SAT 96
--- NOTE | 2025-10-16 03:30 | PC.NURSE ---
Pt BIBA from [facility], pt appearing slumped over and lethargic on stretcher. Pt brought into room 25 for policy change clerks supervisor and pt became verbally agitated. Pt was upset that she was being asked to policy change clerks supervisor, stating, They have never done this before, this is fucking ridiculous. Pt was educated that based on the fact she came in lethargic, we were going to change her over to hospital clothing for our safety. Pt continued to be argumentative and uncooperative. With hemodialysis charge nurse and security at bedside, it was decided to complete a safety search rather than change the pt. Pt was compliant with search, nothing was found. Pt then continued to state, You are rude and disrespectful, I refuse to have you as my nurse. Get the fuck out of my face. halver machine operator aware. Pt moved back to [address] [place] [address].
[2025-10-16 03:33] VITALS: BP 191/99; PULSE 73; RESP 18; TEMP 36.4; O2SAT 100; BMI 22.7
--- OUTSIDE RECORDS SUMMARY | 2025-10-16 04:09 | XMS_ITS | Clinical Summary ---
Author Organization [employer] Address [address] [place] [address] Care Team Providers Care Cyber Incident Handler Name Role Phone Unavailable Primary Care Provider [...] patient's age to complete this topic Insurance [facility] STANDARD MEDICARE [place]
[2025-10-16 06:10] VITALS: BP 162/92; PULSE 86; RESP 18; TEMP 36.4; O2SAT 96
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
[2025-10-16 09:41] VITALS: BP 148/64; PULSE 84; RESP 14; TEMP 36.6; O2SAT 95
== END 2025-10-16 09:43 | disposition home or self-care (01) ==
PROVIDERS: Emergency Provider Emergency Medicine
DX: L30.9 Dermatitis, unspecified (principal); Z59.02 Unsheltered homelessness; F60.2 Antisocial personality disorder; F14.10 Cocaine abuse, uncomplicated; F11.90 Opioid use, unspecified, uncomplicated; F43.10 Post-traumatic stress disorder, unspecified; F31.9 Bipolar disorder, unspecified; Z79.899 Other long term (current) drug therapy
CPT/HCPCS: 36415; 80053; 85025; 93005; 99283; 99284

== ENCOUNTER 2025-10-17 18:29 | Emergency (ER) | payer OTHER, SELFPAY ==
--- NOTE | ~2025-10-17 | US_ITS ---
CLINICAL HISTORY: positive for swelling, reddness, and pain Venous duplex ultrasound left lower extremity Comparison: None provided Findings: The visualized deep veins are fully compressible with normal Doppler color flow and spectral tracings. No popliteal cyst. IMPRESSION: 1. Negative for left lower extremity deep vein thrombosis. This document has been electronically signed by: Pro Rosario MD on 10/17/2025 22:31:09
--- NOTE | ~2025-10-17 | XR_ITS ---
CLINICAL HISTORY: redness swelling 2 view left tibia-fibula Comparison: None provided Findings No fractures or dislocations. No joint effusion. Moderate arthritic changes of the knee and ankle. No radiopaque foreign body. IMPRESSION: 1. No acute fracture or subluxation. This document has been electronically signed by: Pro Rosario MD on 10/17/2025 20:05:31
[2025-10-17 18:43] VITALS: BP 168/93; PULSE 79; RESP 18; TEMP 36.6; O2SAT 98; BMI 26.3
--- NOTE | 2025-10-17 19:00 | ED_ITS ---
HPI - General Adult General Chief complaint: General Medical Stated complaint: ? cellulitis Time Seen by Provider: 10/17/25 20:43 History of Present Illness ED Provider: Molly Guerra NP HPI narrative: 45-year-old female patient with a medical history that is significant for lupus, seizure disorder, bipolar disorder, PTSD, opiate abuse, cocaine, homelessness and housing instability who presents to the ED for left leg swelling and pain. Reports it has been ongoing for about 1-3 days, she was late getting into the intermediate this evening and came to the ED for evaluation. Reports that she has outlined the redness and warmth of the lower leg. Denies any significant leg pain. Reports that when the leg was red, very swollen, and hot to the touch it was more uncomfortable. No fever, chills. No chest pain or pressure, shortness of breath or abdominal pain. No urinary complaints. Was not previously given antibiotics for this. Related Data Previous Rx's ?Medication ?Instructions ?Recorded azithromycin 500 mg tablet 1,000 mg (2 x 500 mg) PO QW JENA 2 10/10/25 weeks #4 tabs metronidazole 500 mg tablet 500 mg PO BID 14 days #28 tabs 10/10/25 acetaminophen 500 mg capsule 1,000 mg (2 x 500 mg) PO Q6H PRN 10/16/25 pain 5 days #20 caps ammonium lactate 5 % lotion 1 appl topical BID #226 gr ams 10/16/25 (Lac-Hydrin Five) cephalexin 500 mg capsule 1,000 mg (2 x 500 mg) PO BID 7 10/17/25 days #28 caps Allergies Allergy/AdvReac Type Severity Reaction Status Date / Time hydrocodone (From VICODIN) Allergy Unknown HIVES Verified 10/17/25 18:47 midazolam (From VERSED) Allergy Unknown AGGRESSION Verified 10/17/25 18:47 rofecoxib (From VIOXX) Allergy Unknown HIVES Verified 10/17/25 18:47 sulfamethoxazole (From Allergy Unknown UNKNOWN Verified 10/17/25 18:47 BACTRIM) trimethoprim (From BACTRIM) Allergy Unknown UNKNOWN Verified 10/17/25 18:47 ibuprofen Allergy Vomiting Verified 10/17/25 18:47 bactrim Allergy Unknown Rash Uncoded 10/16/25 00:04 doxycycline Allergy Unknown Rash Uncoded 10/16/25 00:04 vicodin Allergy Unknown Anxiety Uncoded 10/16/25 00:04 viox Allergy Unknown Rash Uncoded 10/16/25 00:04 Review of Systems 2 Review of Systems: ROS is otherwise negative unless mentioned in HPI. [facility] Past Medical History Medical History Antisocial personality disorder Cocaine use disorder Opioid use disorder PTSD (post-traumatic stress disorder) Bipolar 1 disorder UTI (urinary tract infection) Migraines Lupus Anxiety Surgical History History of pubovaginal sling Social History Social History Household Members: None Housing: Apartment Do you presently have visiting nurse or other home services: No Alcohol intake: never Patient Tobacco Use Status: Current everyday Tobacco user Tobacco use type: Cigarette Cigarette Packs Per Day: 2 Cigarettes Per Day: 40.0 Years Smoked: 7 years then quit for 19 years and restarted 9 months ago Second Hand Smoke Exposure: Yes Substance Use Type: Crack/Cocaine and Heroin Advance Directives: No Advance Directives Information Provided: No Do you have a plan to hurt others: No Plan Physical Exam ED Exam Exam: Nursing notes and vital signs reviewed. Constitutional: Well-appearing, NAD. Alert. Oriented X3. Eyes: EOMI. ENT: Pharynx normal. Neck: Normal inspection. Neck supple. CVS: Pulses normal. Respiratory: No respiratory distress. Abdomen: Nondistended. Skin: Skin warm and dry. Redness, warmth to the anterior left simon. Extremities: No lower extremity edema. Neuro: Oriented X 3. No motor deficit. Vital Signs: Vital Signs - 24 hr 10/17/25 18:43 10/17/25 20:53 Temperature 97.8 F 98.1 F Pulse Rate 79 80 Respiratory Rate 18 14 Blood Pressure 168/93 H 148/83 H Pulse Oximetry 98 99 Oxygen Delivery Method Room Air Room Air BMI result Body Mass Index 26.3 Course Course Course Narrative: RME: 45-year-old female presents with history of lupus presents to ED for left leg redness and swelling. Patient states history of PE. Patient states leg is warm. Exam positive for left leg swelling with redness and warmth. Labs ultrasound x-ray ordered Medications Administered Discontinued Medications Generic Name Dose Route Start Last Admin Trade Name Lori PRN Reason Stop Dose Admin Cephalexin HCl 1,000 mg 10/17/25 21:00 10/17/25 21:25 Cephalexin 500 Mg Capsule PO 10/17/25 21:01 1,000 mg ONCE ONE Administration Medical Decision Making Medical Decision Making [facility] Narrative: 9:03 PM 10/17/2025 (Molly Guerra, NARCISO): Upon exam, there is significant redness, warmth to the left lower extremity. She does have outlined, it does not appear to be spreading surrounding that outlined. This is concerning for a cellulitis, I have ordered a Keflex in the ED. The patient was seen by the triage provider, and is currently pending a venous duplex of her lower extremity as she reported that previously the leg was very swollen. There is no calf pain or tenderness, I have low clinical suspicion for this but we will proceed with imaging and reassess. 2300-- The venous duplex shows no evidence of blood clot. We will discharge home with outpatient prescription for Keflex. She was given the 1st dose in the ED. Provided return precautions to the ED if her symptoms do not improve over the next several days, for which she is agreeable. Differential Diagnosis Differential Diagnoses: The differential diagnosis associated with the presentation includes Cellulitis, osteomyelitis, DVT Admission/Observation Consideration of admission/observation: Escalation of care including admission/observation considered (Not indicated) Lab Data [facility] Lab Attestation statement: I reviewed the patient's lab results. (Reassuring, no leukocytosis, CRP flat.) 10/17/25 19:10 10/17/25 19:10 Labs: Lab Results 10/17/25 Range/Units 19:10 WBC 7.5 (4.8-10.8) X10*3/uL RBC 4.06 L (4.20-5.50) X10*6/uL Hgb 12.5 (12.0-16.0) g/dl Hct 38.2 (37.0-47.0) % MCV 94.1 (80.0-98.0) fL MCH 30.8 (27.0-33.0) pg MCHC 32.7 (31.0-35.0) g/dl RDW 13.8 (11.0-16.0) % Plt Count 256 (160-400) X10*3/uL MPV 11.7 (9.4-12.3) fL Immature Gran % (Auto) 0.3 (0.0-0.4) % Neut % (Auto) 58.8 (45-73) % Lymph % (Auto) 29.5 (20-40) % Loup % (Auto) 6.9 (2-11) % Eos % (Auto) 3.2 (0-4) % Baso % (Auto) 1.3 (0-2) % Lymph # (Auto) 2.2 (1.2-4.9) X10*3/uL Loup # (Auto) 0.5 (0.1-1.2) X10*3/uL Eos # (Auto) 0.2 (0.0-0.4) X10*3/uL Baso # (Auto) 0.1 (0.0-0.2) X10*3/uL Abs Immat Gran (auto) 0.02 (0.00-0.03) X10*3/uL Absolute Neuts (auto) 4.4 (2.0-8.3) x10*3/uL Absolute Nucleated RBC 0.000 (0.0-0.012) X10*3/uL Nucleated RBC % (auto) 0.0 (0.0-0.2) /100WBC ESR 9 (0-20) MM/HR PT 12.2 (11.2-13.5) SEC INR 1.0 (0.9-1.1) APTT 37.4 H (26.7-34.1) SEC Sodium 142 (135-145) mmol/L Potassium 3.3 (3.3-5.1) mmol/L Chloride 100 (96-108) mmol/L Carbon Dioxide 31 H (22-29) mmol/L Anion Gap 14 (12-20) BUN 21 H (9-16) mg/dL Creatinine 0.93 (0.5-1.4) mg/dL Estim Creat Clear Calc 73.1 Estimated GFR > 60 Random Glucose 102 (60-115) mg/dL Calcium 9.4 (8.4-10.2) mg/dL Total Bilirubin 0.3 (0.0-1.0) mg/dL AST 46 H (5-31) U/L ALT 31 (0-31) U/L Alkaline Phosphatase 60 (39-117) U/L C-Reactive Protein 0.14 (< or = 0.50) mg/dL Total Protein 7.2 (6.5-8.0) g/dL Albumin 4.6 (3.5-5.0) g/dL Independent Interpretation I performed an independent interpretation of an: Plain X-Ray Interpretation: I have reviewed the patient's imaging and agree with the radiologist's findings. Radiology Impression Discussion of test interpretation with radiology: I have reviewed the radiologist's reading. Radiologist Impression: IMPRESSION: 1. No acute fracture or subluxation. IMPRESSION: 1. Negative for left lower extremity deep vein thrombosis. Independent Historian None External Record Review External record reviewed: Other (several ER visits) Chronic Conditions Patient?s care impacted by: Other (Substance abuse) Social Determinants Patient?s care significantly limited by Social Determinants of Health including: Inadequate housing, Low income, Alcoholism and drug addiction in family, Problems related to primary support group, Unemployment and Problems related to employment Discharge Plan Discharge Clinical Impression: Cellulitis Patient Disposition: Home, Self-Care Instructions: Cellulitis (ED) Additional Instructions: as we discussed, it appears that you have a cellulitis of your left lower extremity. The x-ray of your lower extremity, as well as the duplex we will reassuring, showing no acute bony infection, or blood clot in the leg. Your lab work was reassuring as well. Please follow up with the PCP within 1 week. I have prescribed you a course of Keflex, which you should take for the skin infection. If you develop any worsening complaints return back to the ED for reassessment for Prescriptions: New cephalexin 500 mg capsule 1,000 mg PO BID 7 Days Qty: 28 0RF No Action metronidazole 500 mg tablet 500 mg PO BID 14 Days Qty: 28 0RF azithromycin 500 mg tablet 1,000 mg PO QWEEK 14 Days Qty: 4 0RF Lac-Hydrin Five 5 % lotion 1 appl topical BID Qty: 226 0RF acetaminophen 500 mg capsule 1,000 mg PO Q6H PRN (Reason: pain) 5 Days Qty: 20 0RF Referrals: Kari Lux MD [Primary Care Provider, Internal Medicine] Interventions: ED Discharge Assessment Last Done: 10/17/25 23:51 Discharge Date/Time: 10/17/25 23:51 Print Language: Amharic
[2025-10-17 19:17] LABS: MANUAL DIFF FLAG NO
[2025-10-17 19:27] LABS: INTERNATIONAL NORM RATIO 1.0 (0.9-1.1); Prothrombin Time 12.2 SEC (11.2-13.5)
[2025-10-17 19:29] LABS: Hematocrit 38.2 % (37.0-47.0); Hemoglobin 12.5 g/dl (12.0-16.0); Imm Gran Abs Auto 0.02 X10*3/uL (0.00-0.03); Imm Gran Pct Auto 0.3 % (0.0-0.4); Lymphocytes Absolute Auto 2.2 X10*3/uL (1.2-4.9); Mean Corpuscular HGB Conc 32.7 g/dl (31.0-35.0); Mean Corpuscular Hemoglobin 30.8 pg (27.0-33.0); Mean Corpuscular Volume 94.1 fL (80.0-98.0); NRBC Abs Auto 0.000 X10*3/uL (0.0-0.012); NRBC Pct Auto 0.0 /100WBC (0.0-0.2); Platelet Count 256 X10*3/uL (160-400); Red Blood Count 4.06 X10*6/uL (4.20-5.50); White Blood Count 7.5 X10*3/uL (4.8-10.8)
[2025-10-17 19:30] LABS: Partial Thromboplastin Time 37.4 SEC (26.7-34.1)
[2025-10-17 19:31] LABS: Alanine Aminotransferase 31 U/L (0-31); Albumin Level 4.6 g/dL (3.5-5.0); Alkaline Phosphatase 60 U/L (39-117); Anion Gap 14 (12-20); Aspartate Amino Transferase 46 U/L (5-31); Blood Urea Nitrogen 21 mg/dL (9-16); Calcium 9.4 mg/dL (8.4-10.2); Carbon Dioxide 31 mmol/L (22-29); Chloride 100 mmol/L (96-108); Creatinine Clr Calc Pharmacy 73.1; Estimated Glomerular Filt Rate > 60; Potassium 3.3 mmol/L (3.3-5.1); Sodium 142 mmol/L (135-145); Total Protein 7.2 g/dL (6.5-8.0)
[2025-10-17 20:12] LABS: Erythrocyte Sedimentation Rate 9 MM/HR (0-20)
[2025-10-17 20:53] VITALS: BP 148/83; PULSE 80; RESP 14; TEMP 36.7; O2SAT 99
[2025-10-17 23:51] VITALS: BP 148/83; PULSE 80; RESP 14; TEMP 36.7; O2SAT 99
--- OUTSIDE RECORDS SUMMARY | 2025-10-18 02:30 | XMS_ITS | Clinical Summary ---
Author Organization [employer] Address [address] [place] [address] Care Team Providers Care Furniture Assembler Name Role Phone Unavailable Primary Care Provider [...] patient's age to complete this topic Insurance [facility] [employer] MEDICARE ME
--- OUTSIDE RECORDS SUMMARY | 2025-10-18 02:30 | XMS_ITS | Clinical Summary ---
Author Organization [facility] ity Address [address] [place] [address] Care Team Providers Care Food Service Driver Name Role Phone Unavailable Primary Care Provider [...]
== END 2025-10-17 23:51 | disposition home or self-care (01) ==
PROVIDERS: Physician Assistant; Emergency Provider Emergency Medicine; PCP Internal Medicine
DX: L03.116 Cellulitis of left lower limb (principal); M79.605 Pain in left leg; R60.0 Localized edema; F17.200 Nicotine dependence, unspecified, uncomplicated; Z71.6 Tobacco abuse counseling
CPT/HCPCS: 36415; 73590; 80053; 85025; 85610; 85652; 85730; 86140; 93971; 99283; 99284

== ENCOUNTER → 2025-10-17 19:00 | Outpatient (BNV) | payer OTHER, SELFPAY | PROVIDERS: PCP Internal Medicine; Visit Provider Radiology Diagnostic Radiology | DX: R22.42 Localized swelling, mass and lump, left lower limb (principal) | CPT/HCPCS: 73590; 93971 ==